=== PATIENT | male | born 1940 | race Caucasian/White ===

== ENCOUNTER 2017-04-03 11:16 | Inpatient (IN) ==
[~2017-04-03 11:16] MED LIST: Aminoglycoside Consult 1 EACH MC ONE
[2017-04-03 11:44] LABS: Hematocrit 23.2 % (37.5-50.1); Immature Platelets 5.5 % (1.1-6.1); Lymphocytes # 1.1 K/mcL (0.6-4.6); Mean Corpuscular HGB Conc 31.5 g/dL (31.6-35.5); Mean Corpuscular Hemoglobin 31.9 pg (28.0-33.3); Mean Corpuscular Volume 101.3 fL (83.0-100.0); Mean Platelet Volume 10.3 fL (9.4-12.4); Nucleated Red Blood Cells 1.1 /100 WBC (0); Platelet Count 313 K/mcL (140-400); Red Blood Count 2.29 M/mcL (4.19-5.50); Red Cell Distribution Width 12.8 % (11.5-14.5)
[2017-04-03 11:53] LABS: INR 1.4; Prothrombin Time 15.2 Seconds (9.4-12.1)
[2017-04-03 11:56] LABS: Activated Partial Thrombo Time 29.7 Seconds (26.0-36.0)
[2017-04-03 12:04] LABS: Bilirubin,Urine Negative (Negative); Blood,Urine Negative (Negative); Clarity,Urine Clear (Clear); Color,Urine Yellow (Yellow); Glucose,Urine (UA) Normal (Normal); Ketones,Urine Negative (Negative); Leukocyte Esterase,Urine Negative (Negative); Nitrite,Urine Negative (Negative); PH,Urine 7.5 pH Units (5.0-8.0); Protein,Urine Negative (Neg-Trace); Specific Gravity,Urine 1.006 (1.010-1.025); Urobilinogen,Urine Normal (Normal)
[2017-04-03 12:08] LABS: BUN/Creatinine Ratio 15 (6-26); Blood Urea Nitrogen 11 mg/dL (8-26); Calcium 8.3 mg/dL (8.6-10.8); Carbon Dioxide 26 mEq/L (19-29); Chloride 101 mEq/L (98-109); Glucose 108 mg/dL (70-99); Osmolality,Calculated 280 (280-300); Potassium 4.5 mEq/L (3.5-4.5); Sodium 135 mEq/L (136-145); eGFR For African Americans > 60 (> 60); eGFR For Non-African Americans > 60 (> 60)
[2017-04-03 12:16] LABS: Hemoglobin 7.3 g/dL (12.9-16.9)
[2017-04-03] MEDS ORDERED: Vancomycin 1,000 MG in D5% in Water 250 ML IVPB ONE (12:28)
[2017-04-03] MEDS ORDERED: Levofloxacin 750 MG/150 ML 750 MG/150 ML BAG IVPB ONE (12:28)
[2017-04-03] MEDS ORDERED: Piperacillin/Tazobactam 3.375 GM in D5% in Water (Mini-Bag+) 100 ML IVPB ONE (12:28)
--- NOTE | 2017-04-03 12:34 | Emergency Department Note ---
Disposition Clinical Impression: Lower GI bleed Pneumonia Qualifiers: Pneumonia type: due to unspecified organism Laterality: bilateral Lung location : unspecified part of lung Qualified Code(s): J18.9 - Pneumonia, unspecified organism Anemia Qualifiers: Anemia type: unspecified type Qualified Code(s): D64.9 - Anemia, unspecified Disposition: Admitted As Inpatient Condition: Good Referrals: Torres,Kel Lama MD [Primary Care Provider] - Forms: Work/School Release, ED Satisfaction Letter Time of Disposition: 15:51 General Adult HPI - General Chief complaint: ED General Medical Stated complaint: HGB 7 Time Seen by Provider: 04/03/17 11:20 Source: patient, EMS Limitations: no limitations Nursing Notes Reviewed: Yes Vital Signs Reviewed: Yes - History of Present Illness HPI Narrative: 76 year old male with recent hx of right knee surgery with Dr. Bynum last week. Chip states that he has been in the senior care since his discharge from the hospital for rehab purpose and they have been checking his labwork and found that he has a hgb of 7. Courtneynet state that he has been taking Fe supplements and experiencing black stool as well but not blood. Chip states that he also has chest pain with shortness of beath upon arrival he was 83% on RA and does not wear oxygen at home and currently on 2LNC and at 96%. Patient was also tachycardic in the room but is now in the 90s. Patient states that he also has had a productive cough that is not improving and that his left knee also feels swollen although it is improving from the since the surgery and he is able to now ambulate on it. Courtneyne denies any fever, chills, abdominal pain, nausea, vomitting, diarrhea, constpiatoin, or UTI symptoms. He denies a history of blood clots. Patient also has an abodminla anuerysm which Dr. Fishman most recently did a stent placement about 6 months ago and he staes that the anuserym isnt getting smaller in fact it is getting larger although it is stable and not leaking. Pain Scale: 1 - Related Data Allergies Allergy/AdvReac Type Severity Reaction Status Date / Time No Known Allergies Allergy Verified 04/03/17 11:26 Constitutional: Reports: weakness. Denies: fever, chills, weight change Eyes: Denies: eye pain, eye discharge, vision change ENT ED: Denies: ear pain, throat pain, dental pain, hearing loss, epistaxis, congestion, dysphagia Cardiovascular: Reports: palpitations, dyspnea on exertion. Denies: chest pain , edema, syncope Respiratory: Reports: cough. Denies: dyspnea, wheezes, hemoptysis, stridor Gastrointestinal: Denies: abdominal pain, nausea, vomiting, diarrhea, constipation, hematemesis, melena, hematochezia Genitourinary: Denies: urgency, dysuria, frequency, hematuria Musculoskeletal: Reports: joint swelling, other (knee pain). Denies: back pain , neck pain, arthralgia, myalgia Integumentary: Denies: rash, abrasion, lesions Neurological: Denies: headache, weakness, numbness, paresthesias, confusion, abnormal gait, vertigo Psychiatric: Denies: anxiety, depression, suicidal thoughts, homicidal thoughts , auditory hallucinations, visual hallucinations Endocrine: Denies: fatigue Hematological/Lymphatic: Denies: easy bleeding, easy bruising Allergic/Immunologic: Denies: facial swelling, urticaria Past Medical History - Past Medical History Medical history: Reports: atrial fibrillation, hypertension, myocardial infarction, thyroid disease Psychiatric history: Reports: no psych history - Social History Smoking Status: Never smoker Smokeless Tobacco Status: No Alcohol use: Reports: none Drug use: Reports: none Physical Exam - General Limitations: no limitations General appearance: alert, in no apparent distress - Head Head exam: atraumatic, normocephalic, normal inspection - Eye Eye exam: Present: normal appearance, PERRL, EOMI - Expanded Eye Exam Pupils: Left: reactive - ENT ENT exam: normal exam, normal oropharynx, mucous membranes moist - Expanded ENT Exam External ear exam: Present: normal external inspection Mouth exam: Present: normal external inspection Teeth exam: Present: normal inspection Throat exam: Present: normal inspection - Neck Neck exam: Present: normal inspection, full ROM, trachea midline - Chest Chest inspection: Present: normal inspection, symmetric chest wall rise - Respiratory Respiratory exam: Present: normal lung sounds bilaterally - Cardiovascular Cardiovascular exam: Present: regular rate, normal rhythm, normal heart sounds - Abdominal Exam Abdominal exam: Present: soft, Non-Tender, pulsatile mass (known abodominal anuerysm). Absent: tenderness, distention, guarding, rebound, rigidity - Rectal Exam Real Estate Analyst present during exam: Yes Rectal exam: Present: normal inspection, normal rectal tone, heme (+) stool, normal prostate. Absent: black stool, bloody stool, fecal impaction, hemorrhoids, mass, tenderness, prostate tenderness, prostate enlargement - Extremities Exam Extremities exam: Present: normal inspection, full ROM. Absent: tenderness, pedal edema - Expanded Upper Extremity Exam Shoulder exam: Present: normal inspection, full ROM Arm exam: Present: normal inspection, full ROM Elbow exam: Present: normal inspection, full ROM Forearm/Wrist exam: Present: normal inspection, full ROM Hand exam: Present: normal inspection, full ROM Vascular exam: Normal: capillary refill, radial pulse - Expanded Lower Extremity Exam Hip/Pelvis exam: Present: normal inspection, full ROM Upper leg exam: Present: normal inspection, full ROM 1 - asymmetery swelling to the left knee with increased warmth and ecchymosis without signs of drainage or flunctuance. Knee exam: Present: normal inspection, full ROM Lower leg exam: Present: normal inspection, full ROM Ankle exam: Present: normal inspection, full ROM Foot/toe exam: Present: normal inspection, full ROM Neurovascular/Tendon exam: Absent: motor deficit, sensory deficit, tendon deficit - Back Exam Back exam: Present: normal inspection, full ROM. Absent: tenderness - Neurological Exam Neurological exam: Present: alert, oriented X3 - Expanded Neurological Exam Patient oriented to: Present: person, place, time Coma Scale Eye Opening: Spontaneous Coma Scale Motor Response: Obeys Commands Coma Scale Verbal Response: Oriented Coma Scale Total: 15 - Psychiatric Psychiatric exam: Present: normal affect, normal mood - Skin Skin exam: Present: warm, dry, intact, normal color Course Course Narrative: we will do a full workup on patinet including PE/DVT r/o wit cardiac labs and EKG/CXR in addition to CT chest and abdomen to evlaute his abdominal aneuryms. Hgb is 7, we will tranfuse two unit and admit to medicine today. - Reevaluation(s) Reevaluation #1: DVT study (-) Time: 13:06 - Consultations Consultation #1: discussed case with Dr. Urias and she accepts patient for admission. Time: 15:50 Vital Signs Temperature 99.4 F 04/03/17 11:19 Pulse Rate 103 04/03/17 11:19 Respiratory Rate 22 04/03/17 11:19 Blood Pressure 146/78 04/03/17 11:19 O2 Sat by Pulse Oximetry 86 04/03/17 11:19 Temperature 98.3 F 04/03/17 14:47 Pulse Rate 100 04/03/17 15:37 Respiratory Rate 18 04/03/17 15:37 Blood Pressure 120/63 04/03/17 15:37 O2 Sat by Pulse Oximetry 93 04/03/17 15:37 Oxygen Delivery Oxygen Delivery Room Air Medical Decision Making - Lab Data Result diagrams: 04/03/17 11:34 04/03/17 11:34 Lab Results 04/03/17 04/03/17 04/03/17 Range/Units 11:34 11:34 11:34 WBC 11.0 (4.3-11.1) K/mcL RBC 2.29 L (4.19-5.50) M/mcL Hgb 7.3 L (12.9-16.9) g/dL Hct 23.2 L (37.5-50.1) % MCV 101.3 H (83.0-100.0) fL MCH 31.9 (28.0-33.3) pg MCHC 31.5 L (31.6-35.5) g/dL RDW 12.8 (11.5-14.5) % Plt Count 313 (140-400) K/mcL MPV 10.3 (9.4-12.4) fL Seg Neutrophils % 72.0 % Lymphocytes % 10.0 % Monocytes % 14.0 % Metamyelocytes % 4.0 H (0) % Neutrophils # 7.9 (1.6-8.9) K/mcL Lymphocytes # 1.1 (0.6-4.6) K/mcL Monocytes # 1.5 H (0.0-1.3) K/mcL Nucleated RBCs/100 WBC 1.1 H (0) /100 WBC Platelet Estimate Normal (Normal) Immature Plt Fraction 5.5 (1.1-6.1) % Polychromasia 1+ A (Not Present) Anisocytosis 1+ A (Not Present) PT 15.2 H (9.4-12.1) Seconds INR 1.4 APTT 29.7 (26.0-36.0) Seconds Sodium (136-145) mEq/L Potassium (3.5-4.5) mEq/L Chloride (98-109) mEq/L Carbon Dioxide (19-29) mEq/L BUN (8-26) mg/dL Creatinine (0.72-1.25) mg/dL Est GFR ( Amer) (> 60) Est GFR (Non-Af Amer) (> 60) BUN/Creatinine Ratio (6-26) Glucose (70-99) mg/dL Calculated Osmolality (280-300) Calcium (8.6-10.8) mg/dL Troponin I (0-0.03) ng/mL Urine Color (Yellow) Urine Clarity (Clear) Urine pH (5.0-8.0) pH Units Ur Specific [place] (1.010-1.025) Urine Protein (Neg-Trace) mg/dL Urine Glucose (UA) (Normal) mg/dL Urine Ketones (Negative) mg/dL Urine Blood (Negative) Urine Nitrite (Negative) Urine Bilirubin (Negative) Urine Urobilinogen (Normal) mg/dL Ur Leukocyte Esterase (Negative) Ur Culture Indicated? (NO) Stool Occult Blood (Negative) Blood Type O POSITIVE Antibody Screen NEGATIVE Crossmatch See Detail 04/03/17 04/03/17 04/03/17 Range/Units 11:34 11:34 11:51 WBC (4.3-11.1) K/mcL RBC (4.19-5.50) M/mcL Hgb (12.9-16.9) g/dL Hct (37.5-50.1) % MCV (83.0-100.0) fL MCH (28.0-33.3) pg MCHC (31.6-35.5) g/dL RDW (11.5-14.5) % Plt Count (140-400) K/mcL MPV (9.4-12.4) fL Seg Neutrophils % % Lymphocytes % % Monocytes % % Metamyelocytes % (0) % Neutrophils # (1.6-8.9) K/mcL Lymphocytes # (0.6-4.6) K/mcL Monocytes # (0.0-1.3) K/mcL Nucleated RBCs/100 WBC (0) /100 WBC Platelet Estimate (Normal) Immature Plt Fraction (1.1-6.1) % Polychromasia (Not Present) Anisocytosis (Not Present) PT (9.4-12.1) Seconds INR APTT (26.0-36.0) Seconds Sodium 135 L (136-145) mEq/L Potassium 4.5 (3.5-4.5) mEq/L Chloride 101 (98-109) mEq/L Carbon Dioxide 26 (19-29) mEq/L BUN 11 (8-26) mg/dL Creatinine 0.75 (0.72-1.25) mg/dL Est GFR ( Amer) > 60 (> 60) Est GFR (Non-Af Amer) > 60 (> 60) BUN/Creatinine Ratio 15 (6-26) Glucose 108 H (70-99) mg/dL Calculated Osmolality 280 (280-300) Calcium 8.3 L (8.6-10.8) mg/dL Troponin I 0.00 (0-0.03) ng/mL Urine Color Yellow (Yellow) Urine Clarity Clear (Clear) Urine pH 7.5 (5.0-8.0) pH Units Ur Specific [place] 1.006 L (1.010-1.025) Urine Protein Negative (Neg-Trace) mg/dL Urine Glucose (UA) Normal (Normal) mg/dL Urine Ketones Negative (Negative) mg/dL Urine Blood Negative (Negative) Urine Nitrite Negative (Negative) Urine Bilirubin Negative (Negative) Urine Urobilinogen Normal (Normal) mg/dL Ur Leukocyte Esterase Negative (Negative) Ur Culture Indicated? NO (NO) Stool Occult Blood (Negative) Blood Type Antibody Screen Crossmatch 04/03/17 Range/Units 14:02 WBC (4.3-11.1) K/mcL RBC (4.19-5.50) M/mcL Hgb (12.9-16.9) g/dL Hct (37.5-50.1) % MCV (83.0-100.0) fL MCH (28.0-33.3) pg MCHC (31.6-35.5) g/dL RDW (11.5-14.5) % Plt Count (140-400) K/mcL MPV (9.4-12.4) fL Seg Neutrophils % % Lymphocytes % % Monocytes % % Metamyelocytes % (0) % Neutrophils # (1.6-8.9) K/mcL Lymphocytes # (0.6-4.6) K/mcL Monocytes # (0.0-1.3) K/mcL Nucleated RBCs/100 WBC (0) /100 WBC Platelet Estimate (Normal) Immature Plt Fraction (1.1-6.1) % Polychromasia (Not Present) Anisocytosis (Not Present) PT (9.4-12.1) Seconds INR APTT (26.0-36.0) Seconds Sodium (136-145) mEq/L Potassium (3.5-4.5) mEq/L Chloride (98-109) mEq/L Carbon Dioxide (19-29) mEq/L BUN (8-26) mg/dL Creatinine (0.72-1.25) mg/dL Est GFR ( Amer) (> 60) Est GFR (Non-Af Amer) (> 60) BUN/Creatinine Ratio (6-26) Glucose (70-99) mg/dL Calculated Osmolality (280-300) Calcium (8.6-10.8) mg/dL Troponin I (0-0.03) ng/mL Urine Color (Yellow) Urine Clarity (Clear) Urine pH (5.0-8.0) pH Units Ur Specific [place] (1.010-1.025) Urine Protein (Neg-Trace) mg/dL Urine Glucose (UA) (Normal) mg/dL Urine Ketones (Negative) mg/dL Urine Blood (Negative) Urine Nitrite (Negative) Urine Bilirubin (Negative) Urine Urobilinogen (Normal) mg/dL Ur Leukocyte Esterase (Negative) Ur Culture Indicated? (NO) Stool Occult Blood Positive A (Negative) Blood Type Antibody Screen Crossmatch - EKG Data EKG #1 EKG attestation: Yes I reviewed and interpreted this EKG. EKG results narrative: NSR with rate of 95. NO STEMI. normal intervals. no old ekg. 1140
[2017-04-03 12:57] LABS: Anisocytosis 1+ (Not Present); Monocytes # 1.5 K/mcL (0.0-1.3); Neutrophils # 7.9 K/mcL (1.6-8.9); Platelet Estimate Normal (Normal); Polychromasia 1+ (Not Present)
[2017-04-03] MEDS ORDERED: 0.9 % Sodium Chloride 250 ML ONE ×2 (14:12→22:44)
[2017-04-03] MEDS: 0.9 % Sodium Chloride 1,000 ML IVC SCH ×3 (17:06→23:50)
[2017-04-03] MEDS ORDERED: Acetaminophen 325 MG TABLET PO PRN (18:16)
[2017-04-03] MEDS ORDERED: Ondansetron 4 MG/2 ML VIAL IVP PRN (18:16)
[2017-04-03] MEDS ORDERED: Naloxone 0.4 MG/ML INJ IVP PRN (18:16)
[2017-04-03] MEDS ORDERED: *HR* HYDROcodone/Acet 5/325 mg TABLET PO PRN (18:16)
[2017-04-03] MEDS ORDERED: *HR* Morphine 2 MG/ML SYRINGE IVP PRN (18:16)
--- NOTE | 2017-04-03 18:57 | Internal Med History&Physical ---
<BeronicaCarter ware - Last Filed: 04/03/17 21:59> Date of Encounter: 04/03/17 Time of Encounter: 17:30 Assessment and Plan (7) Pneumonia Current visit: Yes Status: Acute Patient presents with new onset of cough with sputum production, shortness of breath, and some chest discomfort. CTA of the chest today shows no pulmonary embolism. Bilateral, multifocal groundglass opacities predominantly involving the left upper lobe. Findings likely reflect multifocal pneumonia. No acute aortic abnormality status post stent graft repair of AAA. Residual aneurysm sac measures up to 7.4 cm and is not significantly changed since prior examination. Patient was given IV levaquin, Zosyn, and vancomycin in the ED. Will continue IV Zosyn at 3.375 gm Q8 and IV vancomycin with pharmacy dosing. DuoNebs ordered Q4 scheduled. Patient placed on continuous cardiac telemetry, supplemental O2 with titration if SPO2 less than 92%, and continuous SaO2 monitoring. Blood cultures were ordered 2. Sputum culture ordered. Legionella and strep pneumoniae antigens ordered. Patient does not currently meet SIRS criteria based on WBC of 11.0, temperature 98.3F, heart rate of 103, respiratory rate of 18, and BP of 120/63. Patient to be monitored closely for signs of further changes in H/H, bleeding, cardiac and/or respiratory distress, and increasing infection/SIRS criteria. Qualifiers: Pneumonia type: due to unspecified organism Laterality: bilateral Lung location: unspecified part of lung Qualified Code(s): J18.9 - Pneumonia, unspecified organism (8) Anemia Current visit: Yes Status: Acute Patient presents with acute anemia which was discovered today at the longterm he has been at for post-surgery rehabilitation. Labs at the SNF showed Hgb of 7.0. Patient instructed to come to the ED. Patient's Hgb was 7.3 and Hct was 23.2 at the ED. Patient had recent surgery one week ago on his right knee. Surgical site is erythematous and edematous but appears to be healing. Patient reports black stool but also that he is taking iron supplements. Fecal hemoccult today in the ED was positive. Patient was typed and screened and identified as O positive with negative antibody screen. Patient has been transfused with one unit of RBCs with another unit waiting. Will monitor H/H and follow-up labs. GI consult placed. Will monitor patient for signs of bleeding and/or changes in H/H. Qualifiers: Anemia type: unspecified type Qualified Code(s): D64.9 - Anemia, unspecified (9) Lower GI bleed Current visit: Yes Status: Acute Patient presents with suspected acute GI bleed based on current Hgb of 7.3 and Hct of 23.2 and report of black stool. Patient is currently taking iron supplements, however fecal hemoccult test today was positive. Patient was typed and screened and identified as O positive with negative antibody screen. Patient has been transfused with one unit of RBCs with another unit waiting. Will monitor H/H and follow-up labs. GI consult placed. Will monitor patient for signs of bleeding and/or changes in H/H. (10) Atrial fibrillation Current visit: Yes Status: Acute Patient presents with history of chronic atrial fibrillation and is currently anticoagulated with Eliquis. Patient to be placed on continuous cardiac telemetry and we will hold patient's Eliquis due to current dropping H/H and suspected GI bleed based on positive fecal hemoccult test. Qualifiers: Atrial fibrillation type: chronic Qualified Code(s): I48.2 - Chronic atrial fibrillation (11) HTN (hypertension) Current visit: Yes Status: Chronic Patient presents with history of chronic hypertension. Will monitor patient in vital signs and continue patient's lisinopril and Norvasc. Qualifiers: Hypertension type: essential hypertension Qualified Code(s): I10 - Essential (primary) hypertension (12) Thyroid disease Current visit: Yes Status: Chronic Patient presents with history of chronic thyroid disease. Will continue patient' s Synthroid. (13) DVT prophylaxis Current visit: Yes Status: Acute Patient to be placed on DVT prophylaxis due to current admission protocol and bed rest status. Pharmacologic DVT prophylaxis is contraindicated due to patient's suspected GI bleed and dropping H/H. Due to patient's recent right knee surgery, will placed SCD boot on right foot and SCD calf device on patient' s left leg. Internal Medicine - H&P: HPI Chief complaint: Anemia/Pneumonia Admitted From: Emergency Dept Plans for Post Hospital Care: Home History of present illness: Mr. Hernandez is a 76 year old male who presents from the ED with chief complaint of anemia. Patient was at longterm following right knee surgery last week with Dr. Bynum when the labs they cole showed his Hgb as 7. Patient's Hgb was 7.3 and Hct was 23.3 in ED. Patient has been taking iron supplements and reports black stool. Fecal hemoccult was positive in the ED. Patient reports recent cough with SOB/dyspnea. He denies use of home O2. He was also tachycardic on admission to ED with HR of 103. Patient denies any recent illness , fever, chills, nausea, vomiting, diarrhea, constipation, abdominal pain, dizziness, lightheadedness, presyncope, or presyncope. He also denies history of blood clots or PEs. Patient reports abdominal aneurysm which Dr. Howe placed the stent 6 months ago for an states that aneurysm is getting larger although is stable and not leaking. Patient reports no known allergies. Patient's medical history includes atrial fibrillation, hypertension, and thyroid disease. Patient denies any previous [place]. Patient is a former smoker smoking 1 pack per day, reporting he quit in . Single view CXR today shows left perihilar and right upper lobe infiltrates concerning for multifocal pneumonia. CTA of the chest today shows no pulmonary embolism. Bilateral, multifocal groundglass opacities predominantly involving the left upper lobe likely reflecting multifocal pneumonia. No acute aortic abnormality. Status post stent graft repair of AAA. Residual aneurysm sac measures up to 7.4 cm and is not significantly changed since the prior examination. Patient has been typed and screened and is O+ with negative antibody screen. I unit of RBCs has been transfused with 1 unit ready. Patient reports his last colonoscopy was in 2008. GI consult ordered due to dropping H/H. Patient does not currently meet SIRS criteria based on WBC of 11.0, temperature 98.3F, heart rate of 103, respiratory rate of 18, and BP of 120/63. Patient does have suspected pneumonia as confirmed by CTA today and IV Levaquin, Zosyn, and vancomycin were administered in the ED. We will continue IV Zosyn 3.375 gm every 8 and IV vancomycin with pharmacy dosing for infection coverage. Patient is at high risk for further morbidity based on current pneumonia, dropping H/H requiring transfusion, and risk factors and will be placed as inpatient with orders for continuous cardiac telemetry, supplemental O2 with SPO2 monitoring, blood cultures x2, sputum culture, transfusion of second unit of RBCs, follow-up monitoring of H/H, falls/safety precautions, GI consult, and clear liquid diet due to possible GI intervention. Patient to be monitored closely for signs of further changes in H/H, bleeding, cardiac and/or respiratory distress, and increasing infection/SIRS criteria. Time spent with patient and family >40 minutes. Past Med Surg Social Fam HX - Past Medical History Source: patient Medical history: atrial fibrillation, hypertension, myocardial infarction, thyroid disease Psychiatric history: no psych history - Past Surgical History Surgical History: orthopedic, other (Right knee surgery) - Social History Smoking Status: Former smoker Packs per day: 1 PPD - reports quitting in Smokeless Tobacco Status: No Alcohol use: none Drug use: none Occupational status: previously employed Current living situation: Home, With Family Activity Level: Uses cane/walker Recent Out of Country Travel Within the Last 8 Weeks: No Exposure or Possible Exposure to Illness During Travel: No - Family History Father Race: Family Member Ethnicity: Non- Living Status: Age at : 36 Cause of : Multiple myeloma Hx Family Cancer: Yes (Multiple myeloma) Mother Race: Family Member Ethnicity: Non- Living Status: Age at : 70 Cause of : Liver failure Hx Family Endocrine Disorder: Yes (Liver disease) Brother Race: Family Member Ethnicity: Non- Living Status: Age at : 65 Hx Family Cardiac Disorders: Yes (HD) Hx Family Endocrine Disorder: Yes (DM) Sister Race: Family Member Ethnicity: Non- Living Status: Still Living Hx Family Medical Disorders: No Internal Medicine - H&P: Meds Allopurinol [Zyloprim 300 MG] 300 mg PO QAM 11/17/15 [History] Aspirin [Adult Low Dose Aspirin EC] 81 mg PO QPM 11/17/15 [History] Garlic 1,000 mg PO QPM 11/17/15 [History] Levothyroxine [Synthroid] 75 mcg PO QAM 11/17/15 [History] Lisinopril [Zestril] 20 mg PO BID 11/17/15 [History] Loratadine [Claritin] 10 mg PO DAILY 11/17/15 [History] Multivitamin/Iron/Folic Acid [Centrum Complete Multivit Tab] 1 each PO QAM 11/16 [History] [place]-3/Dha/Epa/Fish Oil [Fish Oil Dr 500 mg Softgel] 1,000 mg PO QPM 11/17/15 [ History] Pravastatin Sodium [Pravachol] 40 mg PO QPM 11/17/15 [History] amLODIPine [Norvasc] 10 mg PO QAM 11/17/15 [History] Apixaban [Eliquis] 5 mg PO BID #30 tablet 11/18/15 [Rx] Diltiazem CD (24hr) [Cardizem CD] 120 mg PO Q24H #30 cap.er.24h 11/18/15 [Rx] Allopurinol [Zyloprim] 300 mg PO DAILY 04/03/17 [History] Amlodipine Besylate 10 mg PO DAILY 04/03/17 [History] Apixaban [Eliquis] 5 mg PO BID 04/03/17 [History] Levothyroxine [Synthroid] 75 mcg PO DAILY 04/03/17 [History] Lisinopril [Zestril] 20 mg PO BID 04/03/17 [History] dilTIAZem HCl [Diltiazem HCl] 120 mg PO DAILY 04/03/17 [History] 3 Allergy/AdvReac Type Severity Reaction Status Date / Time No Known Allergies Allergy Verified 11/17/15 09:38 All Systems PM: A 10-system review of systems was performed and is negative for pertinent findings except as documented above in the HPI. - Constitutional Constitutional: no chills, no fever(s), no night sweats - EENT Eyes: no change in vision, no discharge, no pain, no photophobia Ears: no ear discharge, no ear pain, no tinnitus Nose, mouth and throat: no dysphagia, no nasal discharge, no neck pain, no sore throat - Breasts Breasts: as per HPI - Cardiovascular Cardiovascular ROS IM: as per HPI, dyspnea, dyspnea on exertion, irregular heart rhythm - Respiratory Respiratory: as per HPI, cough, dyspnea, dyspnea on exertion, excessive phlegm production - Gastrointestinal Gastrointestinal: no abdominal pain, no diarrhea, no hematemesis, no hematochezia, no melena, no nausea, no vomiting - Genitourinary Genitourinary ROS male: as per HPI - Musculoskeletal Musculoskeletal ROS IM: no numbness, no tingling - Integumentary Integumentary IM: erythema (Of right knee related to recent surgery) - Neurological Neurological ROS: no confusion, no convulsions, no focal weakness, no numbness, no tingling, no tremor(s) - Psychiatric Psychiatric: as per HPI - Endocrine Endocrine IM: as per HPI - Hematologic/Lymphatic Hematologic/Lymphatic: no easy bruising - Allergic/Immunologic Allergic/Immunologic: as per HPI - Constitutional Vitals: Temp Pulse Resp BP Pulse Ox 98.2 F 92 16 144/70 97 04/03/17 17:02 04/03/17 18:24 04/03/17 18:24 04/03/17 18:24 04/03/17 18:24 General appearance: Present: cooperative, A&O X 3, pleasant, no acute distress, obese, answers questions appropriately - Head Head exam: Present: atraumatic, normocephalic - Eye Eye exam: Present: PERRL, conjuntiva pink, sclera anicteric Pupils: Present: PERRL - ENT ENT exam: Present: normal exam, normal external ear exam, normal oropharynx - Neck Neck exam general surgery: Present: normal inspection, supple, trachea midline. Absent: lymphadenopathy - Respiratory Respiratory exam: Present: CTAB. Absent: accessory muscle use, rales, rhonchi, wheezes - Cardiovascular Cardiovascular exam: Present: irregular rhythm - GI/Abdominal GI/Abdominal exam: Present: normal bowel sounds, soft, no peritoneal signs. Absent: distended, tenderness - Rectal Rectal exam: Present: deferred - Additional comments: exam deferred. - Extremities Exam Extremities exam: Present: pedal edema, warm, radial pulses palpable and symmetrical - Incison Incision: Present: swollen, intact, erythema - Back Exam Back exam: Present: normal inspection - Neurological Exam Neurological exam: Present: CN II-XII intact, oriented X3, no focal deficits. Absent: pronater drift, facial droop, speech deficit - Psychiatric Psychiatric exam: Present: normal affect, normal mood - Skin Skin exam: Present: dry, erythema (Right knee and LE), intact Internal Med - H&P Results - Labs CBC & Chem 7: 04/03/17 20:12 04/03/17 11:34 - EKG Data EKG shows normal: sinus rhythm - EKG Data Prior EKG available for review: no EKG comments: 04/03/17 19:27 EKG dated 04/03/17 shows sinus rhythm with borderline left axis deviation and minimal voltage criteria for LVH. Consider normal variant. Borderline ECG. - Diagnostic Studies Chest x-ray Additional comments: Impressions Chest X-Ray 04/03/17 11:48 IMPRESSION: Left perihilar and right upper lobe infiltrates concerning for multifocal pneumonia. Close plain film follow-up recommended to ensure resolution. D/ / Colby Montero MD / Colby Montero MD Interpreting Provider: Colby Montero MD Other Images Additional comments: Impressions Abdomen/Pelvis CTA 04/03/17 11:48 IMPRESSION: 1. No pulmonary embolism. 2. Bilateral, multifocal ground-glass opacities, predominantly involving the left upper lobe. Findings likely reflect multifocal pneumonia. 3. No acute aortic abnormality. Status post stent graft repair of AAA. Residual aneurysm sac measures up to 7.4 cm and is not significantly changed since the prior examination. D/ : / 04/03/2017 15:27:01 Eliane Aguirre MD / monet Interpreting Provider: Eliane Aguirre MD Chest CTA 04/03/17 11:48 IMPRESSION: 1. No pulmonary embolism. 2. Bilateral, multifocal ground-glass opacities, predominantly involving the left upper lobe. Findings likely reflect multifocal pneumonia. 3. No acute aortic abnormality. Status post stent graft repair of AAA. Residual aneurysm sac measures up to 7.4 cm and is not significantly changed since the prior examination. D/ / 04/03/2017 15:27:01 Eliane Aguirre MD / monet Interpreting Provider: Eliane Aguirre MD <Suzi Nguyen - Last Filed: 04/05/17 08:16> Date of Encounter: 04/03/17 Internal Medicine - H&P: HPI History of present illness: Mr. Hernandez is a 76 year old male All Systems PM: A 10-system review of systems was performed and is negative for pertinent findings except as documented above in the HPI. - Constitutional Vitals: Temp Pulse Resp BP Pulse Ox 98.0 F 82 16 131/58 93 04/05/17 06:56 04/05/17 06:56 04/05/17 07:48 04/05/17 06:56 04/05/17 07:48 Internal Med - H&P Results - Labs CBC & Chem 7: 04/05/17 04:06 04/05/17 04:06 Labs: Short CBC 04/04/17 04/04/17 04/04/17 Range/Units 09:08 14:30 21:13 WBC (4.3-11.1) K/mcL Hgb 9.0 L 8.9 L 8.7 L (12.9-16.9) g/dL Hct 27.7 L 27.4 L 27.3 L (37.5-50.1) % Plt Count (140-400) K/mcL Neutrophils # (1.6-8.9) K/mcL 04/05/17 Range/Units 04:06 WBC 10.6 (4.3-11.1) K/mcL Hgb 8.7 L (12.9-16.9) g/dL Hct 27.6 L (37.5-50.1) % Plt Count 351 (140-400) K/mcL Neutrophils # 7.8 (1.6-8.9) K/mcL BMP 04/05/17 04:06 Sodium 139 Potassium 4.2 Chloride 103 Carbon Dioxide 27 BUN 10 Creatinine 0.80 Glucose 120 H Calcium 8.8 Liver Function 04/05/17 Range/Units 04:06 Total Bilirubin 1.1 (0.2-1.2) mg/dL AST 28 (5-34) Units/L ALT 28 (0-55) Units/L Alkaline Phosphatase 63 (38-126) Units/L Albumin 3.1 L (3.5-5.0) g/dL - Attending Attestation Pt independently seen and examined at bedside. Admitted for PNA, anemia concerning for GI Bleed. Case discussed with KATELYNN Baxter, I agree with his documented findings , assessment, and plan.
[2017-04-03] MEDS ORDERED: Vancomycin 1,500 MG in D5% in Water 250 ML IVPB SCH (19:00)
[2017-04-03] MEDS: Lisinopril 20 MG TABLET PO SCH (20:33)
[2017-04-03 20:47] LABS: Hematocrit 25.7 % (37.5-50.1)
[2017-04-03] MEDS: Ipratropium/Albuterol Neb 3 ML IH SCH ×2 (21:16→23:45)
[2017-04-03] MEDS: dilTIAZem HCl 60 MG TABLET PO SCH (22:50)
[2017-04-04] MEDS: Piperacillin/Tazobactam 3.375 GM in D5% in Water (Mini-Bag+) 100 ML IVPB SCH ×3 (02:44→18:04)
[2017-04-04] MEDS: 0.9 % Sodium Chloride 1,000 ML IVC SCH (02:52)
[2017-04-04] MEDS: Ipratropium/Albuterol Neb 3 ML IH SCH ×6 (03:57→23:13)
[2017-04-04 03:59] LABS: Hematocrit 25.2 % (37.5-50.1); Hemoglobin 7.9 g/dL (12.9-16.9); Mean Corpuscular HGB Conc 31.3 g/dL (31.6-35.5); Mean Corpuscular Volume 98.8 fL (83.0-100.0); Mean Platelet Volume 10.6 fL (9.4-12.4); Nucleated Red Blood Cells 1.9 /100 WBC (0); Platelet Count 294 K/mcL (140-400); Red Blood Count 2.55 M/mcL (4.19-5.50); Red Cell Distribution Width 16.4 % (11.5-14.5)
[2017-04-04 04:05] LABS: INR 1.3
[2017-04-04 04:10] LABS: Activated Partial Thrombo Time 18.6 Seconds (26.0-36.0)
[2017-04-04 04:14] LABS: BUN/Creatinine Ratio 11 (6-26); Blood Urea Nitrogen 8 mg/dL (8-26); Calcium 8.5 mg/dL (8.6-10.8); Carbon Dioxide 24 mEq/L (19-29); Chloride 104 mEq/L (98-109); Chol/HDL Ratio 5.5 (0-4.9); Cholesterol 132 mg/dL (< 200); Glucose 126 mg/dL (70-99); HDL Cholesterol 24 mg/dL (40-59); LDL Cholesterol,Calculated 89 mg/dL (0-99); Magnesium 2.1 mg/dL (1.6-2.6); Osmolality,Calculated 282 (280-300); Potassium 4.4 mEq/L (3.5-4.5); Sodium 136 mEq/L (136-145); Triglycerides 97 mg/dL (< 150); eGFR For African Americans > 60 (> 60); eGFR For Non-African Americans > 60 (> 60)
[2017-04-04 04:44] LABS: Eosinophils # 0.2 K/mcL (0.0-0.6); Lymphocytes # 1.7 K/mcL (0.6-4.6); Monocytes # 1.5 K/mcL (0.0-1.3); Neutrophils # 5.9 K/mcL (1.6-8.9); Reactive Lymphocytes Present (Not Present)
[2017-04-04 04:45] LABS: Large Platelets Present (Not Present); Platelet Estimate Normal (Normal); Polychromasia 1+ (Not Present)
[2017-04-04] MEDS ORDERED: Vancomycin 1,250 MG in D5% in Water 250 ML IVPB SCH (05:00)
--- NOTE | 2017-04-04 06:23 | Electrocardiograph Report ---
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
[2017-04-04] MEDS: amLODIPine 5 MG TABLET PO SCH (08:51)
[2017-04-04] MEDS: Lisinopril 20 MG TABLET PO SCH ×2 (08:52→20:44)
[2017-04-04] MEDS: Pantoprazole 40 MG VIAL IVP SCH (08:52)
[2017-04-04 09:18] LABS: Hematocrit 27.7 % (37.5-50.1)
--- NOTE | 2017-04-04 11:13 | Gastroenterology Consult Note ---
<Tashi Whipple Rebecca - Last Filed: 04/04/17 11:06> Date of Encounter: 04/04/17 Time of Encounter: 10:30 - Assessment and plan (2) Anemia Current Visit: Yes Status: Acute Assessment and plan: Hgb 7.3 on admission and after 2 units PRBC, Hgb 7.9 this morning. Continue to monitor CBC and transfuse PRBC as needed. Plan for EGD today to r/o esophagitis , gastritis, duodenitis, PUD, MW tear, or AVM. Keep patient NPO. Qualifiers: Anemia type: unspecified type Qualified Code(s): D64.9 - Anemia, unspecified (4) Pneumonia Current Visit: Yes Status: Acute Assessment and plan: Management per primary team. Qualifiers: Pneumonia type: due to unspecified organism Laterality: bilateral Lung location: unspecified part of lung Qualified Code(s): J18.9 - Pneumonia, unspecified organism (5) Fecal occult blood test positive Current Visit: Yes Status: Acute - Time Spent With Patient Total time spent is greater than 50% in coordination of care (as documented) at patient's floor/unit and/or counseling patient: GI History of Present Illness - Data of Consult Patient: new to practice Consult date: 04/04/17 Requesting Physician: Ruthie Zambrano MD - Consult Narrative Reason for consult: GI Bleed History of present illness: Mr. Hernandez is a 76 year old male with PMHx of A. fib, HTN, AAA s/p repair, [place], right knee surgery last week who presented to the ED with anemia. Hgb at long-term was 7, and on admission Hgb 7.3 and FOBT was positive. He has been on iron supplements and reports black stool. He has received 2 units of PRBC and Hgb this AM 7.9. He denies fever, chills, abdominal pain, nausea, vomiting, diarrhea, or constipation. Chest CTA consistent with multifocal pneumonia and was started on IV antibiotics. Procedures: Colonoscopy 2008 with 2 polyps (per pt report) NSAIDs: None Anticoagulation: Eliquis Past Med Surg Social Fam HX - Past Medical History Medical history: atrial fibrillation, hypertension, myocardial infarction, thyroid disease Psychiatric history: no psych history - Past Surgical History Surgical History: orthopedic, other (Right knee surgery) - Social History Smoking Status: Former smoker Packs per day: 1 PPD - reports quitting in Smokeless Tobacco Status: No Alcohol use: none Drug use: none - Family History Father Race: Family Member Ethnicity: Non- Living Status: Age at : 36 Cause of : Multiple myeloma Hx Family Cancer: Yes (Multiple myeloma) Mother Race: Family Member Ethnicity: Non- Living Status: Age at : 70 Cause of : Liver failure Hx Family Endocrine Disorder: Yes (Liver disease) Brother Race: Family Member Ethnicity: Non- Living Status: Age at : 65 Hx Family Cardiac Disorders: Yes (HD) Hx Family Endocrine Disorder: Yes (DM) Sister Race: Family Member Ethnicity: Non- Living Status: Still Living Hx Family Medical Disorders: No - Gastrointestinal Gastrointestinal: Present: as per HPI - Constitutional Constitutional: as per HPI - EENT Eyes: as per HPI Ears: Present: as per HPI Nose, mouth and throat: Present: as per HPI - Cardiovascular Cardiovascular ROS: Present: as per HPI - Respiratory Respiratory IM: Present: as per HPI - Genitourinary Genitourinary: Absent: change in color, Urinary frequency - Neurological ROS Neurological GI: Present: as per HPI - Hematologic/Lymphatic Hematologic/Lymphatic pediatric: Present: as per HPI - Musculoskeletal Musculoskeletal ROS GI: Present: as per HPI - Integumentary Integumentary GI: Present: as per HPI - Psychiatric ROS Psychiatric GI: Present: as per HPI - Endocrine Endocrine IM: Present: as per HPI - Constitutional Vitals: Temp Pulse Resp BP Pulse Ox 98.1 F 102 14 132/64 99 04/04/17 10:57 04/04/17 10:57 04/04/17 10:57 04/04/17 10:57 04/04/17 10:57 General appearance: Present: cooperative, A&O X 3, no acute distress, answers questions appropriately - Head Head exam: Present: atraumatic, normocephalic - Eye Eye exam: Present: normal appearance, sclera anicteric - ENT ENT exam: Present: mucous membranes dry - Neck Neck exam general surgery: Present: normal inspection, trachea midline - Respiratory Respiratory exam: Present: decreased breath sounds, CTAB - Cardiovascular Cardiovascular exam: Present: RRR, +S1, +S2 - GI/Abdominal GI/Abdominal exam: Present: soft, no peritoneal signs. Absent: distended, firm , guarding, tenderness - Rectal Rectal exam: Present: deferred - Extremities Exam Extremities exam: Present: warm - Neurological Exam Neurological exam: Present: no focal deficits - Psychiatric Psychiatric exam: Present: normal affect, normal mood - Skin Skin exam: Present: dry, intact, normal color, warm Results - Labs CBC & Chem 7: 04/04/17 09:08 04/04/17 03:29 Labs: Last Result Calcium 8.5 mg/dL (8.6-10.8) L 04/04/17 03:29 Troponin I 0.00 ng/mL (0-0.03) 04/03/17 11:34 Triglycerides 97 mg/dL (< 150) 04/04/17 03:29 Stool Occult Blood Positive (Negative) A 04/03/17 14:02 Entire Visit Hgb 9.0 g/dL (12.9-16.9) L 04/04/17 09:08 Hct 27.7 % (37.5-50.1) L 04/04/17 09:08 PT 14.0 Seconds (9.4-12.1) H 04/04/17 03:29 - ABG ABG results: PT/INR, D-dimer PT 14.0 Seconds (9.4-12.1) H 04/04/17 03:29 Consult Discharge Plan - Plan Referrals: Kel Torres MD [Primary Care Provider] - <LeoncioshakiraFcoCandace - Last Filed: 04/04/17 18:08> Date of Encounter: 04/04/17 Time of Encounter: 17:30 - Time Spent With Patient Total time spent is greater than 50% in coordination of care (as documented) at patient's floor/unit and/or counseling patient: GI History of Present Illness - Data of Consult Requesting Physician: Ruthie Zambrano MD - Consult Narrative History of present illness: Mr. Hernandez is a 76 year old male - Constitutional Vitals: Temp Pulse Resp BP Pulse Ox 98.7 F 86 16 129/69 92 04/04/17 17:17 04/04/17 17:33 04/04/17 17:33 04/04/17 17:33 04/04/17 17:33 Results - Labs CBC & Chem 7: 04/04/17 14:30 04/04/17 03:29 Labs: Last Result Calcium 8.5 mg/dL (8.6-10.8) L 04/04/17 03:29 Troponin I 0.00 ng/mL (0-0.03) 04/03/17 11:34 Triglycerides 97 mg/dL (< 150) 04/04/17 03:29 Stool Occult Blood Positive (Negative) A 04/03/17 14:02 Entire Visit Hgb 8.9 g/dL (12.9-16.9) L 04/04/17 14:30 Hct 27.4 % (37.5-50.1) L 04/04/17 14:30 PT 14.0 Seconds (9.4-12.1) H 04/04/17 03:29 - ABG ABG results: PT/INR, D-dimer PT 14.0 Seconds (9.4-12.1) H 04/04/17 03:29 - Attending Attestation I examined this patient and my medical decision-making was reviewed with the Resident Physician. I agree with the documented findings, disposition and treatment plan as described except to the extent set forth below. Blood loss anemia most probably due to bleeding into the thigh post op. There is questionable history of black stool although on today's examination stools are brown recommendation is EGD and if negative then we will recommend colonoscopy in about 6-8 week as an outpatient after patient has recovered from his knee surgery
[2017-04-04 14:46] LABS: Hematocrit 27.4 % (37.5-50.1)
[2017-04-04 14:47] LABS: Hemoglobin 8.9 g/dL (12.9-16.9)
--- NOTE | 2017-04-04 16:33 | Internal Med Progress Note ---
Date of Encounter: 04/04/17 Time of Encounter: 16:31 - Assessment and plan (1) Pneumonia Current Visit: Yes Status: Acute Qualifiers: Pneumonia type: due to unspecified organism Laterality: bilateral Lung location: lower lobe of lung Qualified Code(s): J18.9 - Pneumonia, unspecified organism (2) Lower GI bleed Current Visit: Yes Status: Acute (3) Coronary artery disease Current Visit: Yes Status: Chronic Qualifiers: Coronary Disease-Associated Artery/Lesion type: [place] artery [place] vs. transplanted heart: [place] heart Associated angina: without angina Qualified Code(s): I25.10 - Atherosclerotic heart disease of [place] coronary artery without angina pectoris (4) Atrial fibrillation Current Visit: Yes Status: Acute Qualifiers: Atrial fibrillation type: chronic Qualified Code(s): I48.2 - Chronic atrial fibrillation (5) HTN (hypertension) Current Visit: Yes Status: Chronic Qualifiers: Hypertension type: essential hypertension Qualified Code(s): I10 - Essential (primary) hypertension (6) Thyroid disease Current Visit: Yes Status: Chronic - Subjective Interval history: Mr. Hernandez is a 76 year old male with PMHx of A. fib, HTN, AAA s/p repair, [place], right knee surgery last week who presented to the ED with anemia. Hgb at detention was 7, and on admission Hgb 7.3 and FOBT was positive. He has been on iron supplements and reports black stool. He has received 2 units of PRBC . Patient was also diagnosed on chest x-ray bilateral pneumonia for which antibiotics were started. He plans to have an EGD today he is on IV Protonix IV fluid and notified - Constitutional Vitals: Temp Pulse Resp BP Pulse Ox 98.0 F 92 14 148/62 97 04/04/17 15:49 04/04/17 15:49 04/04/17 15:49 04/04/17 15:49 04/04/17 15:49 General appearance: Present: cooperative, A&O X 3, pleasant, no acute distress, obese, answers questions appropriately - Head Head exam: Present: atraumatic, normocephalic - Eye Eye exam: Present: PERRL, conjuntiva pink, sclera anicteric Pupils: Present: PERRL - Neck Neck exam general surgery: Present: supple, trachea midline. Absent: lymphadenopathy - Respiratory Respiratory exam: Present: CTAB. Absent: accessory muscle use, rales, rhonchi, wheezes - Cardiovascular Cardiovascular exam: Present: RRR, +S1, +S2. Absent: diastolic murmur, gallop, rubs, systolic murmur - GI/Abdominal GI/Abdominal exam: Present: normal bowel sounds, soft, no peritoneal signs. Absent: distended, tenderness - Extremities Exam Extremities exam: Present: warm, radial pulses palpable and symmetrical. Absent : calf tenderness, cyanotic, pedal edema - Neurological Exam Neurological exam: Present: CN II-XII intact, oriented X3, no focal deficits. Absent: pronater drift, facial droop, speech deficit - Skin Skin exam: Present: dry, intact Internal Medicine: Result - Labs CBC & Chem 7: 04/04/17 14:30 04/04/17 03:29 Labs: Short CBC 04/03/17 04/04/17 04/04/17 Range/Units 20:12 03:29 09:08 WBC 9.2 (4.3-11.1) K/mcL Hgb 8.0 L 7.9 L 9.0 L (12.9-16.9) g/dL Hct 25.7 L 25.2 L 27.7 L (37.5-50.1) % Plt Count 294 (140-400) K/mcL Neutrophils # 5.9 (1.6-8.9) K/mcL 04/04/17 Range/Units 14:30 WBC (4.3-11.1) K/mcL Hgb 8.9 L (12.9-16.9) g/dL Hct 27.4 L (37.5-50.1) % Plt Count (140-400) K/mcL Neutrophils # (1.6-8.9) K/mcL BMP 04/04/17 03:29 Sodium 136 Potassium 4.4 Chloride 104 Carbon Dioxide 24 BUN 8 Creatinine 0.76 Glucose 126 H Calcium 8.5 L - ABG Interpretation ABG results: PT/INR, D-dimer PT 14.0 Seconds (9.4-12.1) H 04/04/17 03:29 - VTE Documentation of Mechanical Device: Venous foot pump, device Consult Discharge Plan - Plan Referrals: Kel Torres MD [Primary Care Provider] -
[2017-04-04] MEDS ORDERED: *HR* Midazolam HCl 5 MG/5 ML VIAL IVP ONE (17:06)
[2017-04-04] MEDS ORDERED: *HR* FentaNYL (PF) 100 MCG/2 ML VIAL ONE (17:07)
[2017-04-04] MEDS ORDERED: Tetracaine/Benzocaine/Butamben 200MG/SPRAY (100SPY/BOT) MM ONE (17:20)
[2017-04-04] MEDS ORDERED: Simethicone 40 MG/0.6 ML MLS IR ONE (17:20)
[2017-04-04] MEDS: *HR* FentaNYL (PF) 100 MCG/2 ML VIAL IVP PRN ×2 (17:28→17:30)
[2017-04-04] MEDS: *HR* Midazolam HCl 5 MG/5 ML VIAL IVP PRN ×2 (17:28→17:30)
[2017-04-04] MEDS ORDERED: 0.9 % Sodium Chloride 500 ML IVC SCH (17:30)
[2017-04-04] MEDS: dilTIAZem HCl 60 MG TABLET PO SCH (20:44)
[2017-04-04 21:26] LABS: Hematocrit 27.3 % (37.5-50.1); Hemoglobin 8.7 g/dL (12.9-16.9)
[2017-04-05] MEDS: Piperacillin/Tazobactam 3.375 GM in D5% in Water (Mini-Bag+) 100 ML IVPB SCH ×2 (00:42→09:49)
[2017-04-05] MEDS: Ipratropium/Albuterol Neb 3 ML IH SCH ×4 (04:24→15:53)
[2017-04-05 05:14] LABS: Hematocrit 27.6 % (37.5-50.1); Hemoglobin 8.7 g/dL (12.9-16.9); Mean Corpuscular HGB Conc 31.5 g/dL (31.6-35.5); Mean Corpuscular Hemoglobin 30.7 pg (28.0-33.3); Mean Corpuscular Volume 97.5 fL (83.0-100.0); Mean Platelet Volume 10.3 fL (9.4-12.4); Nucleated Red Blood Cells 0.6 /100 WBC (0); Platelet Count 351 K/mcL (140-400); Red Blood Count 2.83 M/mcL (4.19-5.50); Red Cell Distribution Width 16.3 % (11.5-14.5)
[2017-04-05 05:27] LABS: Alanine Aminotransferase 28 Units/L (0-55); Albumin 3.1 g/dL (3.5-5.0); Albumin/Globulin Ratio 0.9 (1.1-2.2); Alkaline Phosphatase 63 Units/L (38-126); Aspartate Amino Transferase 28 Units/L (5-34); BUN/Creatinine Ratio 13 (6-26); Blood Urea Nitrogen 10 mg/dL (8-26); Calcium 8.8 mg/dL (8.6-10.8); Carbon Dioxide 27 mEq/L (19-29); Chloride 103 mEq/L (98-109); Globulin 3.3 g/dL (2.4-3.5); Glucose 120 mg/dL (70-99); Osmolality,Calculated 288 (280-300); Potassium 4.2 mEq/L (3.5-4.5); Sodium 139 mEq/L (136-145); Total Protein 6.4 g/dL (6.0-8.3); eGFR For African Americans > 60 (> 60); eGFR For Non-African Americans > 60 (> 60)
[2017-04-05 06:25] LABS: Eosinophils # 0.2 K/mcL (0.0-0.6); Lymphocytes # 0.9 K/mcL (0.6-4.6); Macrocytosis Present (Not Present); Monocytes # 1.7 K/mcL (0.0-1.3); Neutrophils # 7.8 K/mcL (1.6-8.9); Platelet Estimate Normal (Normal); Polychromasia 1+ (Not Present)
[2017-04-05 06:26] LABS: Anisocytosis 1+ (Not Present); Microcytosis Present (Not Present)
[2017-04-05 06:31] LABS: Bilirubin,Total 1.1 mg/dL (0.2-1.2)
[2017-04-05] MEDS: Lisinopril 20 MG TABLET PO SCH (09:48)
[2017-04-05] MEDS: amLODIPine 5 MG TABLET PO SCH (09:48)
[2017-04-05] MEDS: Pantoprazole 40 MG VIAL IVP SCH (09:48)
[2017-04-05 10:01] LABS: Hematocrit 27.4 % (37.5-50.1); Hemoglobin 8.6 g/dL (12.9-16.9)
[2017-04-05 11:16] VITALS: BP 136/53
--- NOTE | 2017-04-05 14:25 | Discharge Summary ---
Date of Encounter: 04/05/17 Time of Encounter: 14:22 - Discharge Diagnosis (1) Lower GI bleed Priority: Primary Status: Acute (2) Pneumonia Priority: Primary Status: Acute Qualifiers: Pneumonia type: due to unspecified organism Laterality: bilateral Lung location: lower lobe of lung Qualified Code(s): J18.9 - Pneumonia, unspecified organism (3) Coronary artery disease Priority: Secondary Status: Chronic Qualifiers: Coronary Disease-Associated Artery/Lesion type: [place] artery [place] vs. transplanted heart: [place] heart Associated angina: without angina Qualified Code(s): I25.10 - Atherosclerotic heart disease of [place] coronary artery without angina pectoris (4) Atrial fibrillation Priority: Secondary Status: Acute Qualifiers: Atrial fibrillation type: chronic Qualified Code(s): I48.2 - Chronic atrial fibrillation (5) HTN (hypertension) Priority: Secondary Status: Chronic Qualifiers: Hypertension type: essential hypertension Qualified Code(s): I10 - Essential (primary) hypertension (6) Thyroid disease Priority: Secondary Status: Chronic - Discharge Medications Prescriptions: Amoxicillin/Clavulanate [Augmentin] 875 mg PO BIDWM #20 tablet Clopidogrel [Plavix] 75 mg PO DAILY #30 tablet Omeprazole [PriLOSEC] 40 mg PO DAILY #30 cap Home Medications: Allopurinol [Zyloprim 300 MG] 300 mg PO QAM 11/17/15 [History] Garlic 1,000 mg PO QPM 11/17/15 [History] Levothyroxine [Synthroid] 75 mcg PO QAM 11/17/15 [History] Lisinopril [Zestril] 20 mg PO BID 11/17/15 [History] Loratadine [Claritin] 10 mg PO DAILY 11/17/15 [History] Multivitamin/Iron/Folic Acid [Centrum Complete Multivit Tab] 1 each PO QAM 11/16 [History] [place]-3/Dha/Epa/Fish Oil [Fish Oil Dr 500 mg Softgel] 1,000 mg PO QPM 11/17/15 [ History] Pravastatin Sodium [Pravachol] 40 mg PO QPM 11/17/15 [History] amLODIPine [Norvasc] 10 mg PO QAM 11/17/15 [History] Diltiazem CD (24hr) [Cardizem CD] 120 mg PO Q24H #30 cap.er.24h 11/18/15 [Rx] Allopurinol [Zyloprim] 300 mg PO DAILY 04/03/17 [History] Amlodipine Besylate 10 mg PO DAILY 04/03/17 [History] Levothyroxine [Synthroid] 75 mcg PO DAILY 04/03/17 [History] Lisinopril [Zestril] 20 mg PO BID 04/03/17 [History] dilTIAZem HCl [Diltiazem HCl] 120 mg PO DAILY 04/03/17 [History] Amoxicillin/Clavulanate [Augmentin] 875 mg PO BIDWM #20 tablet 04/05/17 [Rx] Clopidogrel [Plavix] 75 mg PO DAILY #30 tablet 04/05/17 [Rx] Ipratropium/Albuterol Neb [Duoneb] 3 ml IH BID #60 inh 04/05/17 [Rx] Omeprazole [PriLOSEC] 40 mg PO DAILY #30 cap 04/05/17 [Rx] Allergies/Adverse Reactions: 3 Allergy/AdvReac Type Severity Reaction Status Date / Time No Known Allergies Allergy Verified 11/17/15 09:38 Date of admission: 04/03/17 18:16 Primary care physician: Kel Torres MD Consults: 04/03/17 18:41 Consult to Gastroenterology [CONS] Routine Consulting Provider: Judi Khan Reason for Consult: lower GI bleed Call Completed: No 04/04/17 14:24 Consult to Cadmium Plater [CONS] Routine Reason for SW Consult: Return to [facility] to continue rehab Discharging clinician: Ruthie Zambrano Anticipated date of discharge: 04/05/17 - Patient Status Disposition: Transfer SNF Condition: Good Overall status at discharge: patient is progressing back to baseline - Discharge Instructions Follow Up With: Kel Torres MD [Primary Care Provider] - - Diet and Activity Activity: resume usual activities as tolerated Diet: advance to your usual diet Hospital course: Mr. Hernandez is a 76 year old male with PMHx of A. fib, HTN, AAA s/p repair, [place], right knee surgery last week who presented to the ED with anemia. He is on Eliquis at [place]. Hgb at retirement was 7, and on admission Hgb 7.3 and FOBT was positive. He has been on iron supplements and reports black stool. He has received 2 units of PRBC . Patient was also diagnosed on chest x-ray bilateral pneumonia for which antibiotics were started. GI was consulted and he had an EGD showing gastritis and duodenitis. Biopsies were taken. No active bleed noted. He has been tolerating full diet. He will be discharged with Plavix for his heart. Anticoagulation is on hold and he will see tool and die machinist in office for follow-up for his biopsy as well as discussion about when to restart anticoagulation. - Time Spent with Patient Total time spent providing and/or coordinating discharge services: Greater than 30 minutes - Constitutional Vitals: Temp Pulse Resp BP Pulse Ox 98.0 F 85 14 136/53 93 04/05/17 11:15 04/05/17 11:15 04/05/17 11:15 04/05/17 11:15 04/05/17 11:15 General appearance: Present: cooperative, A&O X 3, pleasant, no acute distress, obese, answers questions appropriately - Head Head exam: Present: atraumatic, normocephalic - Eye Eye exam: Present: PERRL, conjuntiva pink, sclera anicteric Pupils: Present: PERRL - Neck Neck exam general surgery: Present: supple, trachea midline. Absent: lymphadenopathy - Respiratory Respiratory exam: Present: CTAB. Absent: accessory muscle use, rales, rhonchi, wheezes - Cardiovascular Cardiovascular exam: Present: RRR, +S1, +S2. Absent: diastolic murmur, gallop, rubs, systolic murmur - GI/Abdominal GI/Abdominal exam: Present: normal bowel sounds, soft, no peritoneal signs. Absent: distended, tenderness - Extremities Exam Extremities exam: Present: warm, radial pulses palpable and symmetrical. Absent : calf tenderness, cyanotic, pedal edema - Neurological Exam Neurological exam: Present: CN II-XII intact, oriented X3, no focal deficits. Absent: pronater drift, facial droop, speech deficit - Skin Skin exam: Present: dry, intact - VTE Documentation of Mechanical Device: Venous foot pump, device
--- NOTE | 2017-04-05 14:36 | Physician Discharge Referral ---
ExtendedCare Referral Info Transfer To: SNF Provider in Charge: Juan Manuel Provider in Charge after Transfer: PCP Institutional Level of Care: Skilled - Diagnosis (1) Lower GI bleed Status: Acute (2) Pneumonia Status: Acute (3) Coronary artery disease Status: Chronic (4) Atrial fibrillation Status: Acute (5) HTN (hypertension) Status: Chronic (6) Thyroid disease Status: Chronic - Transfer Medications Prescriptions: Amoxicillin/Clavulanate [Augmentin] 875 mg PO BIDWM #20 tablet Clopidogrel [Plavix] 75 mg PO DAILY #30 tablet Omeprazole [PriLOSEC] 40 mg PO DAILY #30 cap Home Medications: Allopurinol [Zyloprim 300 MG] 300 mg PO QAM 11/17/15 [History] Garlic 1,000 mg PO QPM 11/17/15 [History] Levothyroxine [Synthroid] 75 mcg PO QAM 11/17/15 [History] Lisinopril [Zestril] 20 mg PO BID 11/17/15 [History] Loratadine [Claritin] 10 mg PO DAILY 11/17/15 [History] Multivitamin/Iron/Folic Acid [Centrum Complete Multivit Tab] 1 each PO QAM 11/16 [History] [place]-3/Dha/Epa/Fish Oil [Fish Oil Dr 500 mg Softgel] 1,000 mg PO QPM 11/17/15 [ History] Pravastatin Sodium [Pravachol] 40 mg PO QPM 11/17/15 [History] amLODIPine [Norvasc] 10 mg PO QAM 11/17/15 [History] Diltiazem CD (24hr) [Cardizem CD] 120 mg PO Q24H #30 cap.er.24h 11/18/15 [Rx] Allopurinol [Zyloprim] 300 mg PO DAILY 04/03/17 [History] Amlodipine Besylate 10 mg PO DAILY 04/03/17 [History] Levothyroxine [Synthroid] 75 mcg PO DAILY 04/03/17 [History] Lisinopril [Zestril] 20 mg PO BID 04/03/17 [History] dilTIAZem HCl [Diltiazem HCl] 120 mg PO DAILY 04/03/17 [History] Amoxicillin/Clavulanate [Augmentin] 875 mg PO BIDWM #20 tablet 04/05/17 [Rx] Clopidogrel [Plavix] 75 mg PO DAILY #30 tablet 04/05/17 [Rx] Ipratropium/Albuterol Neb [Duoneb] 3 ml IH BID #60 inh 04/05/17 [Rx] Omeprazole [PriLOSEC] 40 mg PO DAILY #30 cap 04/05/17 [Rx] Allergies/Adverse Reactions: 3 Allergy/AdvReac Type Severity Reaction Status Date / Time No Known Allergies Allergy Verified 11/17/15 09:38 - Respiratory Orders Smoking Cessation: Smoking cessation has been advised. For more information, call the [place] Tobacco Quit Line at 9-104-AIIE-NOW. - History and Physical History/Physical reviewed & approved w/add comments: see GI/Cardiology as OP in 2wk to see if Eliquis can be restarted - Rehabiliation Orders Rehab Orders: ROM Exercises, Evaluation for Physical Therapy, Evaluation for Occupational Therapy CERTIFICATION: I certify that the transfer of the above named patient to an Extended Care Facility is necessary for the continuing treatment of the diagnosis listed. The above information is true and accurate reflection of patient's current condition. Confidential - Redisclosure prohibited without a patient's written consent.
--- NOTE | 2017-04-05 18:08 | Venous Imaging Report ---
LE Venous Duplex Patient Name:Arnold Hernandez Order Number:[id number] Procedure Date:04/03/2017 Date:1940ge:76 yrs Gender:Male Location:[facility] ED Room #: ER 7 Director Food Safety:Abbie Fairbanks RDCS, RVT Referring MD:Elmira Baeza DO assistant professor of surgery:Kel Torres MD Reading MD:Kel Bonilla MD Primary Indications:Swelling Secondary Indications: Risk Factors Yes/No Anticoagulants No Hx of DVT No Recent Surgery Yes Hx of Chemotherapy No Impressions: Right lower extremity: normal superficial and deep exam. Recommendations: Test completed on 04/03/2017 at 1:00:43 pm. Critical findings reported to Kristopher by phone at 1:05:52 pm on 04/03/2017 by Abbie Fairbanks RDCS, RVT. Findings Venous Duplex Results: Right: Venous imaging of the lower extremity reveals full patency and normal vessel compressibility of the right distal iliac, right common femoral, right superficial femoral, right popliteal, right posterior tibial, right peroneal, right great saphenous and right lesser saphenous. Doppler signals in the evaluated veins were normal. Left: Venous imaging of the lower extremity reveals full patency and normal vessel compressibility of the left common femoral. Doppler signals in the evaluated veins were normal. Prior Study: No prior study available for comparison. Lower Extremity Venous Duplex Side Vein Compress Spontaneous Flow Augment Diameter (cm) Depth (cm) Right Distal Iliac Normal Yes Phasic Yes Right Common Femoral Normal Yes Phasic Yes Right Superficial Femoral Normal Yes Phasic Yes Right Popliteal Normal Yes Phasic Yes Right Posterior Tibial Normal Yes Phasic Yes Right Peroneal Normal Yes Phasic Yes Right Great Saphenous Normal Yes Phasic Yes Right Lesser Saphenous Normal Yes Phasic Yes Left Common Femoral Normal Yes Phasic Yes Updated by Kel Bonilla MD on 04/05/2017 6:00:30 PM electronically signed on 04/05/2017 6:00:42 PM with status of Final
== END 2017-04-05 16:30 | DRG 377 ==
LOC: EMEROO 11:16 → 2NENU 11:16 → MERGE 18:16 → 2NENU 19:42
PROVIDERS: ADMIT Internal Medicine; ATTEND Internal Medicine
PROC: ENDOEBX (2017-04-04 15:00)

== ENCOUNTER 2018-10-27 08:30 | Inpatient (IN) ==
--- NOTE | 2018-10-27 08:38 | Emergency Department Note ---
Disposition Clinical Impression: Generalized weakness Disposition: Still a Patient General Adult HPI - General Stated complaint: weakness Time Seen by Provider: 10/27/18 08:34 Nursing Notes Reviewed: Yes Vital Signs Reviewed: Yes - History of Present Illness HPI Narrative: ED attending attestation note: I examined this patient and my medical decision-making was reviewed with the emergency medicine resident Dru Warren. I agree with the documented findings, disposition and treatment plan as described except to the extent set forth below. Briefly: 77-year-old male history of hypertension and atrial fibrillation on Plavix lying EMS for weakness. EMS reported that they thought this was some facial asymmetry however we did NIH's scoring immediately upon arrival which was 0 had no visual field disturbances no neuromuscular or motor or cerebellar ataxia findings as far as we can test. Patient said he felt weak and fell backwards without a loss of consciousness for just felt weak. Patient denies fevers chills or sputum. He has bibasilar adventitious breath sounds more consistent with rales. Patient will get chest x-ray EKG screening labs head CT. Admission anticipated. Disposition pending - Related Data Home Medications Medication Instructions Recorded Confirmed Garlic 1,000 mg PO QPM 11/17/15 06/25/17 Multivitamin/Iron/Folic Acid 1 each PO QAM 11/17/15 06/25/17 [Centrum Complete Multivit Tab] [place]-3/Dha/Epa/Fish Oil [Fish Oil 1,000 mg PO QPM 11/17/15 06/25/17 Dr 500 mg Softgel] amLODIPine [Norvasc] 10 mg PO QAM 11/17/15 06/25/17 Allopurinol [Zyloprim] 300 mg PO DAILY 04/03/17 06/25/17 Levothyroxine [Synthroid] 75 mcg PO 0630 04/03/17 06/25/17 Lisinopril [Zestril] 20 mg PO BID 04/03/17 06/25/17 Ranitidine HCl [Acid Ict Development Manager] 150 mg PO DAILY 06/25/17 06/25/17 dilTIAZem HCl [Diltiazem HCl] 120 mg PO DAILY 06/25/17 06/25/17 Previous Rx's Medication Instructions Recorded Clopidogrel [Plavix] 75 mg PO DAILY #30 tablet 04/05/17 Ipratropium/Albuterol Neb [Duoneb] 3 ml IH BID #60 inh 04/05/17 Allergies Allergy/AdvReac Type Severity Reaction Status Date / Time No Known Allergies Allergy Verified 06/25/17 08:01 Past Medical History - Past Medical History Medical history: Reports: GERD, myocardial infarction, atrial fibrillation, hyperlipidemia, hypertension, peripheral artery disease, thyroid disease Surgical history: Reports: orthopedic, other, vascular surgery, other Psychiatric history: Reports: no psych history - Social History Smoking Status: Unknown if ever smoked Smokeless Tobacco Status: No Alcohol use: Reports: none Drug use: Reports: none
--- NOTE | 2018-10-27 08:38 | Emergency Department Note ---
Disposition Clinical Impression: Generalized weakness, Slurred speech, Dehydration, Hyponatremia Disposition: Admitted As Inpatient Condition: Fair Time of Disposition: 10:39 Weakness HPI - General Stated complaint: weakness Time Seen by Provider: 10/27/18 08:34 Source: patient, EMS Mode of arrival: EMS Limitations: no limitations Nursing Notes Reviewed: Yes Vital Signs Reviewed: Yes - History of Present Illness HPI Narrative: Patient presents to the ED with the chief complaint of dizziness. Patient reports he went to get out of his chair today and felt very weak and almost passed out. He did have a fall back into his chair, but did not have any associated injury. He denies any headache or changes in vision. Does state that he feels short of breath. Denies any chest pain at this time. Does have a history of A. fib and is on Plavix, but he is not anticoagulated. Denies any abdominal pain. Some nausea but no vomiting or diarrhea. No rashes. No pain or swelling in his legs. - Related Data Home Medications Medication Instructions Recorded Confirmed Garlic 1,000 mg PO QPM 11/17/15 06/25/17 Multivitamin/Iron/Folic Acid 1 each PO QAM 11/17/15 06/25/17 [Centrum Complete Multivit Tab] [place]-3/Dha/Epa/Fish Oil [Fish Oil 1,000 mg PO QPM 11/17/15 06/25/17 Dr 500 mg Softgel] amLODIPine [Norvasc] 10 mg PO QAM 11/17/15 06/25/17 Allopurinol [Zyloprim] 300 mg PO DAILY 04/03/17 06/25/17 Levothyroxine [Synthroid] 75 mcg PO 0630 04/03/17 06/25/17 Lisinopril [Zestril] 20 mg PO BID 04/03/17 06/25/17 Ranitidine HCl [Acid News Operations Manager] 150 mg PO DAILY 06/25/17 06/25/17 dilTIAZem HCl [Diltiazem HCl] 120 mg PO DAILY 06/25/17 06/25/17 Previous Rx's Medication Instructions Recorded Clopidogrel [Plavix] 75 mg PO DAILY #30 tablet 04/05/17 Ipratropium/Albuterol Neb [Duoneb] 3 ml IH BID #60 inh 04/05/17 Allergies Allergy/AdvReac Type Severity Reaction Status Date / Time No Known Allergies Allergy Verified 06/25/17 08:01 Review of Systems: As reviewed in the HPI. All other systems reviewed are negative or normal. Past Medical History - Past Medical History Attestation: Yes The following information was validated with the patient. Source: patient Medical history: Reports: GERD, myocardial infarction, atrial fibrillation, hyperlipidemia, hypertension, peripheral artery disease, thyroid disease Surgical history: Reports: orthopedic, other, vascular surgery, other Psychiatric history: Reports: no psych history - Social History Smoking Status: Unknown if ever smoked Smokeless Tobacco Status: No Alcohol use: Reports: none Drug use: Reports: none Physical Exam CONSTITUTIONAL: [well appearing, alert and in no acute distress] EYES: [EOMI, clear conjunctiva, PERRLA] HENT: [Normocephalic, atraumatic, moist mucus membranes, normal oropharynx] NECK: [normal inspection, full ROM, trachea midline, no obvious swelling] PULMONARY: [coarse breath sounds b/l CARDIOVASCULAR: [regular rate, regular rhythm, normal heart sounds, no murmurs, distal extremities are warm and well perfused] GASTROINSTESTINAL: [soft, non-tender, non-rigid, non-distended, no guarding, no rebound, normal bowel sounds] GENITOURINARY/RECTAL: [deferred] NEUROLOGIC: [Alert, oriented x3, normal speech, moves all extremities,NIH 0] EXTREMITIES: [Normal inspection, full ROM, no tenderness, 1+ pedal edema, normal capillary refill] MUSCULOSKELETAL: [no gross deformities, atraumatic] SKIN: [No cyanosis, no diaphoresis, normal color, warm, no rash] PSYCHIATRIC: [anxious] Course Course Narrative: Patient presenting with weakness. NIH is 0. We will get labs workup and likely admit. He is febrile, which would explain his tachycardia. We will evaluate for infectious sources 8:55nursing staff came to alert us patient was having some slurred speech. States that he feels like he cannot get some of his words out. He is able to identify my watch and a pen. Speech does seem very mildly slurred, giving him an NIH of 1. Getting him down to CT at this time. - Reevaluation(s) Reevaluation #1: Patient's workup shows some dehydration and mild hyponatremia. We will admit for TIA workup. Patient accepted by the hospitalist service Vital Signs Temperature 101.4 F H 10/27/18 08:32 Pulse Rate 108 10/27/18 08:32 Respiratory Rate 22 10/27/18 08:32 Blood Pressure 134/85 10/27/18 08:32 O2 Sat by Pulse Oximetry 92 10/27/18 08:32 Temperature 101.4 F H 10/27/18 08:32 Pulse Rate 108 10/27/18 08:32 Respiratory Rate 22 10/27/18 08:32 Blood Pressure 134/85 10/27/18 08:32 O2 Sat by Pulse Oximetry 93 10/27/18 08:42 Oxygen Delivery Oxygen Delivery Nasal Cannula Weakness - Medical Records Medical records reviewed: Yes I reviewed the patient's medical records. - Lab Data Lab results reviewed: Yes I reviewed the patient's lab results. Result diagrams: 10/27/18 09:33 10/27/18 09:33 Lab Results 10/27/18 10/27/18 10/27/18 Range/Units 08:33 09:00 09:32 WBC (4.3-11.1) K/mcL RBC (4.19-5.50) M/mcL Hgb (12.9-16.9) g/dL Hct (37.5-50.1) % MCV (83.0-100.0) fL MCH (28.0-33.3) pg MCHC (31.6-35.5) g/dL RDW (11.5-14.5) % Plt Count (140-400) K/mcL MPV (9.4-12.4) fL Seg Neutrophils % % Band Neutrophils % (0-4) % Lymphocytes % % Monocytes % % Metamyelocytes % (0) % Neutrophils # (1.6-8.9) K/mcL Lymphocytes # (0.6-4.6) K/mcL Monocytes # (0.0-1.3) K/mcL Reactive Lymphocytes (Not Present) Toxic Vacuolation (Not Present) Platelet Estimate (Normal) Large Platelets (Not Present) Sodium (136-145) mEq/L Potassium (3.5-5.1) mEq/L Chloride (98-107) mEq/L Carbon Dioxide (23-29) mEq/L BUN (8-23) mg/dL Creatinine (0.70-1.30) mg/dL Est GFR ( Amer) (> 60) Est GFR (Non-Af Amer) (> 60) BUN/Creatinine Ratio (6-26) Glucose (70-105) mg/dL POC Glucose 156 H (70-99) mg/dL Calculated Osmolality (280-300) Lactic Acid 2.5 H (0.5-2.2) mmol/L Calcium (8.6-10.3) mg/dL Venous Ioniz Calcium (1.15-1.35) mmol/L Troponin I (< 0.04) ng/mL TSH (0.340-5.600) mcIU/mL Urine Color Yellow (Yellow) Urine Clarity Clear (Clear) Urine pH 6.0 (5.0-8.0) pH Units Ur Specific [place] 1.023 (1.010-1.025) Urine Protein 100 H (Neg-Trace) mg/dL Urine Glucose (UA) Normal (Normal) mg/dL Urine Ketones Trace H (Negative) mg/dL Urine Blood Moderate H (Negative) Urine Nitrite Negative (Negative) Urine Bilirubin Negative (Negative) Urine Urobilinogen Normal (Normal) mg/dL Ur Leukocyte Esterase Negative (Negative) Urine Microscopic RBC 15-30 H (0-3) per hpf Urine Microscopic WBC 0-3 (0-3) per hpf Ur Squamous Epith Cells Many H (None-Few) per lpf Urine Bacteria None Seen (None-Few) per hpf Hyaline Casts Few (None-Few) per lpf Ur Culture Indicated? NO (NO) 10/27/18 10/27/18 10/27/18 Range/Units 09:33 09:33 09:48 WBC 8.9 (4.3-11.1) K/mcL RBC 4.03 L (4.19-5.50) M/mcL Hgb 13.2 (12.9-16.9) g/dL Hct 39.2 (37.5-50.1) % MCV 97.3 (83.0-100.0) fL MCH 32.8 (28.0-33.3) pg MCHC 33.7 (31.6-35.5) g/dL RDW 13.2 (11.5-14.5) % Plt Count 95 L (140-400) K/mcL MPV 11.8 (9.4-12.4) fL Seg Neutrophils % 45.0 % Band Neutrophils % 22.0 H (0-4) % Lymphocytes % 12.0 % Monocytes % 20.0 % Metamyelocytes % 1.0 H (0) % Neutrophils # 6.0 (1.6-8.9) K/mcL Lymphocytes # 1.1 (0.6-4.6) K/mcL Monocytes # 1.8 H (0.0-1.3) K/mcL Reactive Lymphocytes Present A (Not Present) Toxic Vacuolation Present A (Not Present) Platelet Estimate Slight Decrease L (Normal) Large Platelets Present A (Not Present) Sodium 130 L (136-145) mEq/L Potassium 3.6 (3.5-5.1) mEq/L Chloride 97 L (98-107) mEq/L Carbon Dioxide 21 L (23-29) mEq/L BUN 20 (8-23) mg/dL Creatinine 1.42 H (0.70-1.30) mg/dL Est GFR ( Amer) 59 L (> 60) Est GFR (Non-Af Amer) 49 L (> 60) BUN/Creatinine Ratio 14 (6-26) Glucose 130 H (70-105) mg/dL POC Glucose (70-99) mg/dL Calculated Osmolality 274 L (280-300) Lactic Acid (0.5-2.2) mmol/L Calcium 8.2 L (8.6-10.3) mg/dL Venous Ioniz Calcium 0.99 L (1.15-1.35) mmol/L Troponin I 0.03 (< 0.04) ng/mL TSH 1.218 (0.340-5.600) mcIU/mL Urine Color (Yellow) Urine Clarity (Clear) Urine pH (5.0-8.0) pH Units Ur Specific [place] (1.010-1.025) Urine Protein (Neg-Trace) mg/dL Urine Glucose (UA) (Normal) mg/dL Urine Ketones (Negative) mg/dL Urine Blood (Negative) Urine Nitrite (Negative) Urine Bilirubin (Negative) Urine Urobilinogen (Normal) mg/dL Ur Leukocyte Esterase (Negative) Urine Microscopic RBC (0-3) per hpf Urine Microscopic WBC (0-3) per hpf Ur Squamous Epith Cells (None-Few) per lpf Urine Bacteria (None-Few) per hpf Hyaline Casts (None-Few) per lpf Ur Culture Indicated? (NO) - Radiology Data Radiology results reviewed: Yes I reviewed the patient's radiology results. - EKG Data EKG attestation: Yes I reviewed and interpreted this EKG. EKG results narrative: Sinus tach, rate 107, indeterminate axis. Due to isoelectric aVF, no acute ischemic change NIH Stroke Scale - Level of Consciousness LOC: Alert - LOC Questions LOC Questions: Answers both correctly - LOC Commands LOC Commands: Performs both correctly - Best Gaze Best Gaze: Normal - Visual Visual: No visual loss - Facial Palsy Facial Palsy: Normal - Motor Arms Motor Arm-Left: No drift for 10 seconds Motor Arm-Right: No drift for 10 seconds - Motor Legs Motor Leg-Left: No drift for 5 seconds Motor Leg-Right: No drift for 5 seconds - Limb Ataxia Limb Ataxia: Normal, No Ataxia - Sensory Sensory: Normal - Best Language Best Language: No aphasia - Dysarthria Dysarthria: Mild, slurs some words - Extinction and Inattention Extinction and Inattention: Normal - NIHSS Total Score NIHSS Total Score: 1
[2018-10-27] MEDS ORDERED: 0.9 % Sodium Chloride 500 ML IVC ONE (08:39)
[2018-10-27 09:09] LABS: Bilirubin,Urine Negative (Negative); Blood,Urine Moderate (Negative); Clarity,Urine Clear (Clear); Color,Urine Yellow (Yellow); Glucose,Urine (UA) Normal (Normal); Ketones,Urine Trace mg/dL (Negative); Leukocyte Esterase,Urine Negative (Negative); Nitrite,Urine Negative (Negative); Protein,Urine 100 mg/dL (Neg-Trace); Specific Gravity,Urine 1.023 (1.010-1.025); Urobilinogen,Urine Normal (Normal)
[2018-10-27 09:12] LABS: Bacteria,Urine None Seen per hpf (None-Few); Hyaline Casts,Urine Few per lpf (None-Few); RBC,Urine 15-30 per hpf (0-3); Squamous Epithelial Cell,Urine Many per lpf (None-Few); WBC,Urine 0-3 per hpf (0-3)
[2018-10-27] MEDS ORDERED: Aspirin 81 MG TAB.CHEW PO ONE (09:36)
[2018-10-27 09:46] LABS: Hematocrit 39.2 % (37.5-50.1); Hemoglobin 13.2 g/dL (12.9-16.9); Mean Corpuscular HGB Conc 33.7 g/dL (31.6-35.5); Mean Corpuscular Hemoglobin 32.8 pg (28.0-33.3); Mean Corpuscular Volume 97.3 fL (83.0-100.0); Mean Platelet Volume 11.8 fL (9.4-12.4); Red Blood Count 4.03 M/mcL (4.19-5.50); Red Cell Distribution Width 13.2 % (11.5-14.5)
[2018-10-27 09:51] LABS: VBG Ionized Calcium 0.99 mmol/L (1.15-1.35)
[2018-10-27 10:04] LABS: Platelet Count 95 K/mcL (140-400)
[2018-10-27 10:07] LABS: Calcium 8.2 mg/dL (8.6-10.3); Potassium 3.6 mEq/L (3.5-5.1)
[2018-10-27 10:08] LABS: Troponin I 0.03 ng/mL (< 0.04)
[2018-10-27 10:09] LABS: Lymphocytes # 1.1 K/mcL (0.6-4.6); Monocytes # 1.8 K/mcL (0.0-1.3)
[2018-10-27 10:10] LABS: Large Platelets Present (Not Present); Platelet Estimate Slight Decrease (Normal); Reactive Lymphocytes Present (Not Present); Toxic Vacuolation Present (Not Present)
[2018-10-27 10:21] LABS: Thyroid Stimulating Hormone 1.218 mcIU/mL (0.340-5.600)
[2018-10-27] MEDS ORDERED: 0.9 % Sodium Chloride 1,000 ML IVC ONE (10:37)
[2018-10-27] MEDS ORDERED: Naloxone 0.4 MG/ML INJ IVP PRN (11:30)
--- NOTE | 2018-10-27 12:10 | Internal Med History&Physical ---
Date of Encounter: 10/27/18 Time of Encounter: 11:00 Internal Medicine - H&P: HPI Chief complaint: Generalized weakness Admitted From: Home Plans for Post Hospital Care: Home History of present illness: Mr. Hernandez is a 77 year old male presented to ER for generalized weakness. Past medical history is significant for hypertension, A. fib, hypothyroidism, ROLY on CPAP, aortic aneurysm S/P stent. Patient was sick for about one week, has cough with chest congestion. Patient has white sputum. He has runny nose and sneezing. Since yesterday, he is getting worse. Pt has low fever. Patient has nausea and vomited twice. The vomiting are stomach content no blood in it. This morning patient feel whole- body weak, dizziness, cannot getup by himself. Patient also reports slurred speech. Patient denies one-sided weakness, facial drop, or one-sided numbness tingling. Patient has decreased that oxygen saturation, which he need [place] oxygen during transportation. In the emergency room, patient was treated with hydrat ion, patient feels much better after receiving the IV fluid. Patient was admitted for further management. Past Med Surg Social Fam HX - Past Medical History Medical history: GERD, myocardial infarction, atrial fibrillation, hyperlip idemia, hypertension, peripheral artery disease, thyroid disease Additional medical history: gout Psychiatric history: no psych history - Past Surgical History Surgical History: orthopedic, other, vascular surgery, other Additional surgical history: AAA, left ear surgery,RTK, EGD 2017 - Social History Smoking Status: Unknown if ever smoked Smokeless Tobacco Status: No Alcohol use: none Drug use: none - Family History Father Family Member Ethnicity: Non- Living Status: Hx Family Cancer: Yes (Multiple myeloma) Mother Family Member Ethnicity: Non- Living Status: Hx Family Endocrine Disorder: Yes (Liver disease) Brother Family Member Ethnicity: Non- Living Status: Hx Family Cardiac Disorders: Yes (HD) Hx Family Endocrine Disorder: Yes (DM) Sister Family Member Ethnicity: Non- Living Status: Still Living Internal Medicine - H&P: Meds Garlic 1,000 mg PO QPM 11/17/15 [History] Multivitamin/Iron/Folic Acid [Centrum Complete Multivit Tab] 1 each PO QAM 11/17/15 [History] [place]-3/Dha/Epa/Fish Oil [Fish Oil Dr 500 mg Softgel] 1,000 mg PO QPM 11/17/15 [History] amLODIPine [Norvasc] 10 mg PO QAM 11/17/15 [History] Allopurinol [Zyloprim] 300 mg PO DAILY 04/03/17 [History] Levothyroxine [Synthroid] 75 mcg PO 0630 04/03/17 [History] Lisinopril [Zestril] 20 mg PO BID 04/03/17 [History] Clopidogrel [Plavix] 75 mg PO DAILY #30 tablet 04/05/17 [Rx] Ipratropium/Albuterol Neb [Duoneb] 3 ml IH BID #60 inh 04/05/17 [Rx] Ranitidine HCl [Acid Core Setter] 150 mg PO DAILY 06/25/17 [History] dilTIAZem HCl [Diltiazem HCl] 120 mg PO DAILY 06/25/17 [History] Allergy/AdvReac Type Severity Reaction Status Date / Time No Known Allergies Allergy Verified 06/25/17 08:01 All Systems PM: A 10-system review of systems was performed and is negative for pertinent findings except as documented above in the HPI. - Constitutional Vitals: Temp Pulse Resp BP Pulse Ox 98.9 F 108 16 93/73 93 10/27/18 10:47 10/27/18 08:32 10/27/18 10:47 10/27/18 10:47 10/27/18 10:47 Exam: Pt is AAO x 3, in NAD HEENT: [place]/AT, PERRL Neck: Supple, no JVD, no LAD Lungs: Coarse breath sound bilaterally, scattered rhonchi mainly on left side. Heart: S1S2, RRR Abd: Soft, nontender, BS present Ext: ROM wnl, no pedal edema Neuro: No focal deficit Internal Med - H&P Results - Labs CBC & Chem 7: 10/27/18 09:33 10/27/18 09:33 Labs: Short CBC 10/27/18 Range/Units 09:33 WBC 8.9 (4.3-11.1) K/mcL Hgb 13.2 (12.9-16.9) g/dL Hct 39.2 (37.5-50.1) % Plt Count 95 L (140-400) K/mcL Neutrophils # 6.0 (1.6-8.9) K/mcL BMP 10/27/18 09:33 Sodium 130 L Potassium 3.6 Chloride 97 L Carbon Dioxide 21 L BUN 20 Creatinine 1.42 H Glucose 130 H Calcium 8.2 L Cardiac Enzymes 10/27/18 Range/Units 09:33 Troponin I 0.03 (< 0.04) ng/mL Urine 10/27/18 Range/Units 09:00 Urine Color Yellow (Yellow) Urine Clarity Clear (Clear) Urine pH 6.0 (5.0-8.0) pH Units Ur Specific [place] 1.023 (1.010-1.025) Urine Protein 100 H (Neg-Trace) mg/dL Urine Glucose (UA) Normal (Normal) mg/dL - Impressions ITS Impressions Chest X-Ray 10/27/18 08:34 IMPRESSION: Low lung volumes and mild bibasilar atelectasis. D/ / Eliane Aguirre MD / Eliane Aguirre MD Interpreting Provider: Eliane Aguirre MD Head CT 10/27/18 08:34 IMPRESSION: No acute intracranial abnormality. D/ / Cal Chavez MD / Cal Chavez MD Interpreting Provider: Cal Chavez MD - Assessment and Plan (1) Dehydration Current Visit: Yes Status: Acute Assessment and plan: Patient has nausea vomiting, poor intake. Patient has signs of dehydration with BRENDA. - Continue hydrate patient with IV fluid - Follow up her renal function (2) Hyponatremia Current Visit: Yes Status: Acute Assessment and plan: Sodium 130. Consider hypovolemic hyponatremia. Continue normal saline. Fo llow-up sodium level (3) Slurred speech Current Visit: Yes Status: Acute Assessment and plan: Most likely due to acute illness. Less likely TIA/CVA. Slurred speech completely resolved after hydration. - We will check MRI, CT head negative - Continue cardiac monitoring - NIHSS protocol - Echo and duplex carotid - Continue home medication Plavix (4) Weakness generalized Current Visit: Yes Status: Acute Assessment and plan: Possibly due to acute illness. Continue supportive treatment. (5) Atrial fibrillation Current Visit: No Status: Acute Assessment and plan: Heart rate is well controlled. Patient is on sinus rhythm at this point. Continue home medications for heart rate control. Patient is on Plavix. Not on anticoagulation at home possibly due to history of GI bleed. Qualifiers: Atrial fibrillation type: chronic Qualified Code(s): I48.2 - Chronic atrial fibrillation (6) DVT prophylaxis Current Visit: No Status: Acute Assessment and plan: EPCDs (7) Dyspnea Current Visit: No Status: Acute Assessment and plan: Patient has cough, white sputum, fever, bandemia, mild elevated lactate acid level. - Chest x-ray did not show any infiltrate - We will check respiratory viral panel - We will check Legionella and Strep Pneumo Ags - We will empirically treat patient with azithromycin and Rocephin to cover early community acquired pneumonia. - Continue IV fluid, repeat lactate acid in 6 hours Qualifiers: Dyspnea type: shortness of breath Qualified Code(s): R06.02 - Shortness of breath; R06.00 - Dyspnea, unspecified; R06.01 - Orthopnea (8) HTN (hypertension) Current Visit: No Status: Chronic Assessment and plan: Continue home medications after verification Qualifiers: Hypertension type: essential hypertension Qualified Code(s): I10 - Essential (primary) hypertension (9) Thyroid disease Current Visit: No Status: Chronic Assessment and plan: Continue home medication Synthroid - Time Spent With Patient Total time spent is greater than 50% in coordination of care (as documented) at patient's floor/unit and/or counseling patient: 40 minutes Greater than 35 minutes
[2018-10-27] MEDS: 0.9 % Sodium Chloride 1,000 ML IVC SCH (14:30)
[2018-10-27] MEDS: cefTRIAXone 1,000 MG in Water for inj. (sterile) 20 ML 10 ML IVP SCH (14:31)
[2018-10-27] MEDS: Azithromycin 500 MG in D5% in Water 250 ML IVPB SCH (14:31)
[2018-10-27] MEDS: Diltiazem CD (24hr) 120 MG CAPSULE PO SCH (14:32)
[2018-10-27 16:45] LABS: Adenovirus Not Detected (Not Detect); Coronavirus 229E Not Detected (Not Detect); Coronavirus HKU1 Not Detected (Not Detect); Coronavirus NL63 Not Detected (Not Detect); Coronavirus OC43 Not Detected (Not Detect); Human Metapneumovirus Not Detected (Not Detect); Human Rhinovirus/Enterovirus Not Detected (Not Detect); Influenza A Subtype 2009 H1 Not Detected (Not Detect); Influenza A Untypeable Not Detected (Not Detect); Influenza B Not Detected (Not Detect); Parainfluenza Virus 1 Not Detected (Not Detect); Parainfluenza Virus 2 Not Detected (Not Detect); Parainfluenza Virus 3 Not Detected (Not Detect); Parainfluenza Virus 4 Not Detected (Not Detect)
[2018-10-27 16:46] LABS: Bordetella Pertussis Not Detected (Not Detect); Chlamydophila pneumoniae Not Detected (Not Detect); Mycoplasma pneumoniae Not Detected (Not Detect); Respiratory Syncytial Virus Not Detected (Not Detect)
[2018-10-27] MEDS: Acetaminophen 325 MG TABLET PO PRN (16:49)
[2018-10-27] MEDS ORDERED: Oseltamivir Phosphate 30 MG CAPSULE PO ONE (16:52)
[2018-10-27] MEDS ORDERED: Perflutren Lipid Microsphere 1.3 ML in 0.9 % Sodium Chloride 8.7 ML IVP ONE (18:44)
[2018-10-27] MEDS ORDERED: Perflutren Lipid Microsphere 2 ML VIAL ONE (18:48)
[2018-10-27] MEDS: Ipratropium/Albuterol Neb 3 ML IH SCH (20:21)
[2018-10-28 04:26] LABS: Mean Corpuscular Hemoglobin 31.8 pg (28.0-33.3)
[2018-10-28 04:28] LABS: Basophils % 0.1 %; Eosinophils % 0.1 %; Hematocrit 37.8 % (37.5-50.1); Hemoglobin 12.4 g/dL (12.9-16.9); Immature Granulocytes % 1.6 % (0-4); Immature Platelets 12.1 % (1.1-6.1); Lymphocytes # 0.9 K/mcL (0.6-4.6); Lymphocytes % 4.5 %; Mean Corpuscular HGB Conc 32.8 g/dL (31.6-35.5); Mean Corpuscular Volume 96.9 fL (83.0-100.0); Mean Platelet Volume 12.3 fL (9.4-12.4); Monocytes # 1.7 K/mcL (0.0-1.3); Monocytes % 8.8 %; Neutrophils # 16.6 K/mcL (1.6-8.9); Red Cell Distribution Width 13.4 % (11.5-14.5); Segmented Neutrophils % 84.9 %
[2018-10-28 04:35] LABS: BUN/Creatinine Ratio 19 (6-26); Blood Urea Nitrogen 22 mg/dL (8-23); Calcium 8.1 mg/dL (8.6-10.3); Carbon Dioxide 23 mEq/L (23-29); Chloride 98 mEq/L (98-107); Glucose 121 mg/dL (70-105); Magnesium 1.7 mg/dL (1.6-2.6); Osmolality,Calculated 275 (280-300); Potassium 3.6 mEq/L (3.5-5.1); Sodium 130 mEq/L (136-145); eGFR For Non-African Americans > 60 (> 60)
[2018-10-28 04:42] LABS: Platelet Count 88 K/mcL (140-400)
[2018-10-28 04:43] LABS: Platelet Estimate Decreased (Normal)
[2018-10-28] MEDS: Oseltamivir Phosphate 30 MG CAPSULE PO SCH ×2 (06:57→21:46)
[2018-10-28 07:27] LABS: Adenovirus F 40/41 PCR Not detected (Not detect); Astrovirus PCR Not detected (Not detect); C.difficile Toxin A/B Gene PCR Not detected (Not detect); Campylobacter by PCR Not detected (Not detect); Cryptosporidium by PCR Not detected (Not detect); Cyclospora cayetanensis PCR Not detected (Not detect); E. coli O157 by PCR Not detected (Not detect); Entamoeba histolytica PCR Not detected (Not detect); Enteroaggregative E.coli(EAEC) Not detected (Not detect); Enteropathogenic E.coli(EPEC) Not detected (Not detect); Enterotoxigenic E.coli (ETEC) Not detected (Not detect); Giardia lamblia PCR Not detected (Not detect); Norovirus GI/GII PCR Not detected (Not detect); Plesiomonas shigelloides PCR Not detected (Not detect); Rotavirus A PCR Not detected (Not detect); Salmonella PCR Not detected (Not detect); Sapovirus PCR Not detected (Not detect); Shig/EnteroinvasiveE coli EIEC Not detected (Not detect); Shigalike tox-prod E coli STEC Not detected (Not detect); Vibrio PCR Not detected (Not detect); Vibrio cholerae PCR Not detected (Not detect); Yersinia enterocolitica PCR Not detected (Not detect)
[2018-10-28] MEDS: 0.9 % Sodium Chloride 1,000 ML IVC SCH (07:35)
[2018-10-28] MEDS: cefTRIAXone 1,000 MG in Water for inj. (sterile) 20 ML 10 ML IVP SCH (08:21)
[2018-10-28] MEDS: Diltiazem CD (24hr) 120 MG CAPSULE PO SCH (08:22)
[2018-10-28] MEDS: *HR* Heparin 5,000 UNIT/ML VIAL SQ SCH ×2 (09:52→21:46)
[2018-10-28] MEDS: Ipratropium/Albuterol Neb 3 ML IH SCH ×2 (09:55→22:33)
[2018-10-28] MEDS: Azithromycin 500 MG in D5% in Water 250 ML IVPB SCH (11:42)
--- NOTE | 2018-10-28 15:01 | Internal Med Progress Note ---
Hospitalist Progress Note - Encounter Date of Encounter: 10/28/18 Time of Encounter: 08:30 - Subjective Interval History: Mr. Hernandez is a 77 year old male with past medical history is significant for hypertension, A. fib, hypothyroidism, ROLY on CPAP, aortic aneurysm S/P stent. presented to ER for with one week h/o progressively worsening SOB, Cough with greenish expectoration and chest congestion. He felt his whole-body weak, dizziness, cannot getup by himself. Patient also reports slurred speech. Patient denies one-sided weakness, facial drop, or one-sided numbness tingling. 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 Denied any CP. Still has moderate to severe SOB and LYLES. Cough with greenish / yellowish expectoration. - Exam Vitals: Temp Pulse Resp BP Pulse Ox 99.0 F 83 19 118/65 90 10/28/18 12:36 10/28/18 12:36 10/28/18 12:36 10/28/18 12:36 10/28/18 12:36 Exam: Gen: Alert, awake, Oriented to time,place and person Chest: Diminished breath sounds B/L, Moderate to severe wheezing, No crackles, No rales Heart: S1S2+ Tachycardia, No murmurs Abd: Soft, NT, BS +, No organomegaly Ext: No edema, pulses are palpable, No calf tenderness Neuro : Benign findings Skin: No rash. - Assessment and Plan (1) Acute respiratory failure with hypoxia Current Visit: Yes Status: Acute Assessment and Plan: Currently on 5 lit O2 He does not use O2 at home His CXR did not show any infiltrates Reviewed resp viral panel - positive for influenza A cont Tamiflu will f.u on sputum cx since pt still have wheezing started on low dose systemic steroids continue scheduled bronchodilator therapy Try to wean him off off the oxygen as he tolerates Patient does need to stay in the hospital more than 2 midnights due to his complex medical problems. So we will change him to full admission today. I did review my colleague Dr. Cabrales's H & P including HPI, PMH, PSH, FH, SH, and ROS no changes noticed (2) COPD with exacerbation Current Visit: Yes Status: Acute Assessment and Plan: as above (3) Acute bronchitis Current Visit: Yes Status: Acute Assessment and Plan: Influenza A positive bronchitis also concenirng for supra infection with bacteria on empirical abx Rocephin + Azithromycin (4) Slurred speech Current Visit: Yes Status: Acute Assessment and Plan: Most likely due to acute illness Less likely TIA/CVA. Slurred speech completely resolved after hydration. MRI of Head is negative for ischenia No further work up needed (5) Weakness generalized Current Visit: Yes Status: Acute Assessment and Plan: Possibly due to acute illness. Continue supportive treatment. (6) Atrial fibrillation Current Visit: No Status: Acute Assessment and Plan: HR fairly controlled due to resp failure Continue home medications Coreg and Cardizem for heart rate control. Patient is on Plavix. Not on anticoagulation at home possibly due to history of GI bleed. (7) HTN (hypertension) Current Visit: No Status: Chronic Assessment and Plan: stable BP resumed all home meds (8) Thyroid disease Current Visit: No Status: Chronic Assessment and Plan: Continue home medication Synthroid (9) DVT prophylaxis Current Visit: No Status: Acute Assessment and Plan: EPCDs (10) Dehydration Current Visit: Yes Status: Acute Assessment and Plan: resolved (11) Hyponatremia Current Visit: Yes Status: Acute Assessment and Plan: due to dehydration - Time Spent with Patient Total time spent is greater than 50% in coordination of care (as documented) at patient's floor/unit and/or counseling patient: Internal Medicine: Result - Labs CBC & Chem 7: 10/28/18 04:00 10/28/18 04:00 Labs: Short CBC 10/28/18 Range/Units 04:00 WBC 19.6 H D (4.3-11.1) K/mcL Hgb 12.4 L (12.9-16.9) g/dL Hct 37.8 (37.5-50.1) % Plt Count 88 L (140-400) K/mcL Neutrophils # 16.6 H (1.6-8.9) K/mcL BMP 10/28/18 04:00 Sodium 130 L Potassium 3.6 Chloride 98 Carbon Dioxide 23 BUN 22 Creatinine 1.13 Glucose 121 H Calcium 8.1 L - Impressions Impressions Echocardiogram 10/27/18 11:33 Impressions: LVEF 45-50%. Moderate concentric left ventricular hypertrophy. Mild left ventricular diastolic dysfunction. Normal right ventricular structure and function. No evidence of PFO with agitated saline contrast. No evidence of pulmonary hypertension. Left Ventricular Wall Motion: Rest Echo Findings The apex, apical inferior, mid inferior, basal inferior, apical anterior, mid anterior, basal anterior, apical septal, mid inferior septal, basal inferior septal, apical lateral, mid anterior lateral, basal anterior lateral, mid anterior septal, mid inferior lateral, basal anterior septal and basal inferior lateral hayes were hypokinetic. Findings: Study Quality * Technically sub-optimal due to body habitus. ECG Findings * Normal sinus rhythm. Left Ventricle * LVEF 45-50%. * Definity echo contrast was used. * There is no LV thrombus. * Moderate concentric left ventricular hypertrophy. * Mild left ventricular diastolic dysfunction. * Mild global left ventricular systolic dysfunction. Right Ventricle * Normal right ventricular structure and function. Left Atrium * Mildly dilated left atrium. Right Atrium * Normal right atrial size. Interatrial Septum * No evidence of PFO with agitated saline contrast. Aortic Valve * Trileaflet aortic valve. * No aortic regurgitation. * No aortic stenosis. * Mildly sclerotic aortic valve leaflets. Mitral Valve * Normal mitral valve structure. * No mitral regurgitation. * No mitral stenosis. Tricuspid Valve * Normal tricuspid valve structure. * Trace tricuspid regurgitation. * No tricuspid stenosis. * No evidence of pulmonary hypertension. Pulmonic Valve * Trace pulmonic regurgitation. Aorta * Normally sized aortic root. Pericardium * The pericardium appears normal. IVC * Normal IVC dimensions and inspiratory collapse. Pulmonary Artery * Pulmonary artery not well visualized. Consult Discharge Plan - Plan Referrals: Kel Torres MD [Primary Care Provider] - (Please contact Dr. Torres to schedule your appointment within 5-7 days of discharge. ) (6) Atrial fibrillation Qualifiers: Atrial fibrillation type: chronic Qualified Code(s): I48.2 - Chronic atrial fibrillation (7) HTN (hypertension) Qualifiers: Hypertension type: essential hypertension Qualified Code(s): I10 - Essential (primary) hypertension
[2018-10-28] MEDS: MethylPREDNISolone 40 MG/ML VIAL IVP SCH (16:29)
[2018-10-29] MEDS: MethylPREDNISolone 40 MG/ML VIAL IVP SCH ×2 (05:32→17:40)
[2018-10-29 05:50] LABS: Immature Granulocytes % 0.9 % (0-4); Red Cell Distribution Width 13.3 % (11.5-14.5)
[2018-10-29 05:52] LABS: Hematocrit 37.2 % (37.5-50.1); Hemoglobin 12.5 g/dL (12.9-16.9); Immature Platelets 12.7 % (1.1-6.1); Lymphocytes # 0.5 K/mcL (0.6-4.6); Lymphocytes % 6.1 %; Mean Corpuscular HGB Conc 33.6 g/dL (31.6-35.5); Mean Corpuscular Hemoglobin 32.3 pg (28.0-33.3); Mean Corpuscular Volume 96.1 fL (83.0-100.0); Mean Platelet Volume 12.6 fL (9.4-12.4); Monocytes # 0.6 K/mcL (0.0-1.3); Monocytes % 7.1 %; Neutrophils # 6.7 K/mcL (1.6-8.9); Red Blood Count 3.87 M/mcL (4.19-5.50); Segmented Neutrophils % 85.9 %
[2018-10-29 06:04] LABS: Platelet Count 91 K/mcL (140-400)
[2018-10-29 06:16] LABS: BUN/Creatinine Ratio 23 (6-26); Blood Urea Nitrogen 19 mg/dL (8-23); Calcium 8.6 mg/dL (8.6-10.3); Carbon Dioxide 25 mEq/L (23-29); Chloride 98 mEq/L (98-107); Glucose 175 mg/dL (70-105); Magnesium 2.1 mg/dL (1.6-2.6); Osmolality,Calculated 285 (280-300); Potassium 3.8 mEq/L (3.5-5.1); Sodium 134 mEq/L (136-145); eGFR For Non-African Americans > 60 (> 60)
[2018-10-29] MEDS: Diltiazem CD (24hr) 120 MG CAPSULE PO SCH (08:53)
[2018-10-29] MEDS: Oseltamivir Phosphate 30 MG CAPSULE PO SCH ×2 (08:54→20:58)
[2018-10-29] MEDS: cefTRIAXone 1,000 MG in Water for inj. (sterile) 20 ML 10 ML IVP SCH (08:55)
[2018-10-29] MEDS: *HR* Heparin 5,000 UNIT/ML VIAL SQ SCH ×2 (08:56→20:58)
[2018-10-29] MEDS: Ipratropium/Albuterol Neb 3 ML IH SCH ×2 (10:45→21:23)
--- NOTE | 2018-10-29 15:21 | Internal Med Progress Note ---
Hospitalist Progress Note - Encounter Date of Encounter: 10/29/18 Time of Encounter: 14:55 - Subjective Interval History: Mr. Hernandez is a 77 year old male with past medical history is significant for hypertension, A. fib, hypothyroidism, ROLY on CPAP, aortic aneurysm S/P stent. presented to ER for with one week h/o progressively worsening SOB, Cough with greenish expectoration and chest congestion. He felt his whole-body weak, dizziness, cannot getup by himself. Patient also reports slurred speech. Patient denies one-sided weakness, facial drop, or one-sided numbness tingling. He was admitted in the hospital and placed him on bit shaver. He was started on empirical abx Rocephin, Azithromycin and IV steorids. Pt stated he is feeling better today. Still on 7 lit o2. Denied any CP. Still has moderate to severe SOB and LYLES. Cough with greenish / yellowish expectoration. - Exam Vitals: Temp Pulse Resp BP Pulse Ox 97.9 F 71 16 116/64 93 10/29/18 11:06 10/29/18 11:06 10/29/18 11:06 10/29/18 11:06 10/29/18 11:06 Exam: Gen: Alert, awake, Oriented to time,place and person, mild resp distress Chest: Diminished breath sounds B/L, Moderate to severe wheezing, No crackles, No rales Heart: S1S2+, RRR, No murmurs Abd: Soft, NT, BS +, No organomegaly Ext: No edema, pulses are palpable, No calf tenderness Neuro : Benign findings Skin: No rash. - Assessment and Plan (1) Acute respiratory failure with hypoxia Current Visit: Yes Status: Acute Assessment and Plan: Currently on 7 lit O2 Clinically pt looks better today He does not use O2 at home His CXR did not show any infiltrates, b/l atelectasis noticed Reviewed resp viral panel - positive for influenza A Strep PNA came back as positive cont Tamiflu will f.u on sputum cx Cont systemic steroids continue scheduled bronchodilator therapy Try to wean him off off the oxygen as he tolerates recommended frequent incentive spirometry (2) COPD with exacerbation Current Visit: Yes Status: Acute Assessment and Plan: as above (3) Streptococcal pneumonia Current Visit: Yes Status: Acute Assessment and Plan: His Strep PNA came back as positive Inc Rocephin to 2gm IV Daily continue close monitoring will repeat another CXR (4) Acute bronchitis Current Visit: Yes Status: Acute Assessment and Plan: Influenza A positive bronchitis also concerning for supra infection with bacteria on empirical abx Rocephin + Azithromycin (5) Slurred speech Current Visit: Yes Status: Acute Assessment and Plan: Most likely due to acute illness Less likely TIA/CVA. Slurred speech completely resolved after hydration. MRI of Head is negative for ischenia No further work up needed (6) Weakness generalized Current Visit: Yes Status: Acute Assessment and Plan: Possibly due to acute illness. Continue supportive treatment. (7) Atrial fibrillation Current Visit: No Status: Acute Assessment and Plan: HR fairly controlled due to resp failure Continue home medications Coreg and Cardizem for heart rate control. Patient is on Plavix. Not on anticoagulation at home possibly due to history of GI bleed. (8) HTN (hypertension) Current Visit: No Status: Chronic Assessment and Plan: stable BP resumed all home meds (9) Thyroid disease Current Visit: No Status: Chronic Assessment and Plan: Continue home medication Synthroid (10) DVT prophylaxis Current Visit: No Status: Acute Assessment and Plan: EPCDs (11) Dehydration Current Visit: Yes Status: Acute Assessment and Plan: resolved (12) Hyponatremia Current Visit: Yes Status: Acute Assessment and Plan: due to dehydration Improved - Time Spent with Patient Total time spent is greater than 50% in coordination of care (as documented) at patient's floor/unit and/or counseling patient: Internal Medicine: Result - Labs CBC & Chem 7: 10/29/18 05:25 10/29/18 05:25 Labs: Short CBC 10/29/18 Range/Units 05:25 WBC 7.8 D (4.3-11.1) K/mcL Hgb 12.5 L (12.9-16.9) g/dL Hct 37.2 L (37.5-50.1) % Plt Count 91 L (140-400) K/mcL Neutrophils # 6.7 (1.6-8.9) K/mcL BMP 10/29/18 05:25 Sodium 134 L Potassium 3.8 Chloride 98 Carbon Dioxide 25 BUN 19 Creatinine 0.83 Glucose 175 H Calcium 8.6 - Impressions Impressions Retroperitoneum Ultrasound 10/28/18 18:00 IMPRESSION: Bilateral simple renal cortical cysts. No evidence of hydronephrosis or intrarenal stones. D/ / Vu Webb MD / Vu Webb MD Interpreting Provider: Vu Webb MD Consult Discharge Plan - Plan Referrals: Kel Torres MD [Primary Care Provider] - (Please contact Dr. Torres to schedule your appointment within 5-7 days of discharge. ) (7) Atrial fibrillation Qualifiers: Atrial fibrillation type: chronic Qualified Code(s): I48.2 - Chronic atrial fibrillation (8) HTN (hypertension) Qualifiers: Hypertension type: essential hypertension Qualified Code(s): I10 - Essential (primary) hypertension
[2018-10-29] MEDS ORDERED: cefTRIAXone 1,000 MG in Water for inj. (sterile) 20 ML 10 ML IVP ONE (15:31)
[2018-10-29] MEDS ORDERED: cefTRIAXone 2,000 MG in 0.9 % Sodium Chloride Mini Bag 100 ML IVPB SCH (16:00)
[2018-10-29] MEDS: Azithromycin 500 MG in D5% in Water 250 ML IVPB SCH (16:04)
[2018-10-29] MEDS: Ondansetron 4 MG/2 ML VIAL IVP PRN (20:58)
[2018-10-30] MEDS: MethylPREDNISolone 40 MG/ML VIAL IVP SCH ×2 (05:27→18:00)
[2018-10-30 06:56] LABS: Basophils % 0.2 %; Hematocrit 39.5 % (37.5-50.1); Hemoglobin 12.9 g/dL (12.9-16.9); Immature Granulocytes % 1.8 % (0-4); Lymphocytes # 0.7 K/mcL (0.6-4.6); Lymphocytes % 7.7 %; Mean Corpuscular HGB Conc 32.7 g/dL (31.6-35.5); Mean Corpuscular Hemoglobin 31.2 pg (28.0-33.3); Mean Corpuscular Volume 95.6 fL (83.0-100.0); Mean Platelet Volume 12.5 fL (9.4-12.4); Monocytes # 0.9 K/mcL (0.0-1.3); Neutrophils # 7.2 K/mcL (1.6-8.9); Platelet Count 129 K/mcL (140-400); Red Blood Count 4.13 M/mcL (4.19-5.50); Red Cell Distribution Width 13.4 % (11.5-14.5); Segmented Neutrophils % 80.3 %
[2018-10-30 07:17] LABS: BUN/Creatinine Ratio 27 (6-26); Blood Urea Nitrogen 19 mg/dL (8-23); Calcium 9.1 mg/dL (8.6-10.3); Carbon Dioxide 25 mEq/L (23-29); Chloride 100 mEq/L (98-107); Glucose 155 mg/dL (70-105); Osmolality,Calculated 287 (280-300); Sodium 136 mEq/L (136-145); eGFR For Non-African Americans > 60 (> 60)
[2018-10-30] MEDS: Ipratropium/Albuterol Neb 3 ML IH SCH ×2 (09:26→19:30)
[2018-10-30] MEDS: Diltiazem CD (24hr) 120 MG CAPSULE PO SCH (09:36)
[2018-10-30] MEDS: cefTRIAXone 2,000 MG in Water for inj. (sterile) 20 ML 20 ML IVP SCH (09:36)
[2018-10-30] MEDS: *HR* Heparin 5,000 UNIT/ML VIAL SQ SCH ×2 (09:36→21:07)
[2018-10-30] MEDS: Oseltamivir Phosphate 30 MG CAPSULE PO SCH ×2 (09:36→21:07)
[2018-10-30] MEDS: Azithromycin 500 MG in D5% in Water 250 ML IVPB SCH (12:08)
--- NOTE | 2018-10-30 13:19 | Internal Med Progress Note ---
Hospitalist Progress Note - Encounter Date of Encounter: 10/30/18 Time of Encounter: 12:00 - Subjective Interval History: Mr. Hernandez is a 77 year old male with past medical history is significant for hypertension, A. fib, hypothyroidism, ROLY on CPAP, aortic aneurysm S/P stent. presented to ER for with one week h/o progressively worsening SOB, Cough with greenish expectoration and chest congestion. He felt his whole-body weak, dizziness, cannot getup by himself. Patient also reports slurred speech. Patient denies one-sided weakness, facial drop, or one-sided numbness tingling. He was admitted in the hospital and placed him on campus monitor. He was started on empirical abx Rocephin, Azithromycin and IV steorids. Pt stated he is feeling better today. Today he is on 5 lit o2. Denied any CP. Still has moderate to severe SOB and LYLES. Cough with greenish / yellowish expectoration. - Exam Vitals: Temp Pulse Resp BP Pulse Ox 98.4 F 85 16 132/71 93 10/30/18 11:35 10/30/18 11:35 10/30/18 11:35 10/30/18 11:35 10/30/18 11:35 Exam: Gen: Alert, awake, Oriented to time,place and person, mild resp distress Chest: Diminished breath sounds B/L, Moderate to severe wheezing, No crackles, No rales Heart: S1S2+, RRR, No murmurs Abd: Soft, NT, BS +, No organomegaly Ext: No edema, pulses are palpable, No calf tenderness Neuro : Benign findings Skin: No rash. - Assessment and Plan (1) Acute respiratory failure with hypoxia Current Visit: Yes Status: Acute Assessment and Plan: Currently on 5 lit O2 Clinically pt looks better today He does not use O2 at home His CXR did not show any infiltrates, b/l atelectasis noticed Reviewed resp viral panel - positive for influenza A Strep PNA came back as positive cont Tamiflu will f.u on sputum cx Cont systemic steroids continue scheduled bronchodilator therapy Try to wean him off off the oxygen as he tolerates recommended frequent incentive spirometry (2) COPD with exacerbation Current Visit: Yes Status: Acute Assessment and Plan: as above (3) Streptococcal pneumonia Current Visit: Yes Status: Acute Assessment and Plan: His Strep PNA came back as positive His repeat CXR showed worsening pneumonia in [facility] Inc Rocephin to 2gm IV Daily continue close monitoring (4) Acute bronchitis Current Visit: Yes Status: Acute Assessment and Plan: Influenza A positive bronchitis also concerning for supra infection with bacteria on empirical abx Rocephin + Azithromycin (5) Slurred speech Current Visit: Yes Status: Acute Assessment and Plan: Most likely due to acute illness Less likely TIA/CVA. Slurred speech completely resolved after hydration. MRI of Head is negative for ischenia No further work up needed (6) Weakness generalized Current Visit: Yes Status: Acute Assessment and Plan: Possibly due to acute illness. Continue supportive treatment. (7) Atrial fibrillation Current Visit: No Status: Acute Assessment and Plan: HR fairly controlled due to resp failure Continue home medications Coreg and Cardizem for heart rate control. Patient is on Plavix. Not on anticoagulation at home possibly due to history of GI bleed. (8) HTN (hypertension) Current Visit: No Status: Chronic Assessment and Plan: stable BP resumed all home meds (9) Thyroid disease Current Visit: No Status: Chronic Assessment and Plan: Continue home medication Synthroid (10) DVT prophylaxis Current Visit: No Status: Acute Assessment and Plan: EPCDs (11) Dehydration Current Visit: Yes Status: Acute Assessment and Plan: resolved (12) Hyponatremia Current Visit: Yes Status: Acute Assessment and Plan: due to dehydration Improved - Time Spent with Patient Total time spent is greater than 50% in coordination of care (as documented) at patient's floor/unit and/or counseling patient: Internal Medicine: Result - Labs CBC & Chem 7: 10/30/18 06:39 10/30/18 06:39 Labs: Short CBC 10/30/18 Range/Units 06:39 WBC 9.0 (4.3-11.1) K/mcL Hgb 12.9 (12.9-16.9) g/dL Hct 39.5 (37.5-50.1) % Plt Count 129 L (140-400) K/mcL Neutrophils # 7.2 (1.6-8.9) K/mcL BMP 10/30/18 06:39 Sodium 136 Potassium 4.0 Chloride 100 Carbon Dioxide 25 BUN 19 Creatinine 0.71 Glucose 155 H Calcium 9.1 - Impressions Impressions Chest X-Ray 10/29/18 17:45 IMPRESSION: Worsening hazy multifocal airspace disease particularly in the left lower lobe suggesting worsening pneumonia. The findings were sent to the [facility] at 6:03 pm on 10/29/2018to be communicated to a licensed caregiver. D/ / Vu Webb MD / Vu Webb MD Interpreting Provider: Vu Webb MD Consult Discharge Plan - Plan Referrals: Kel Torres MD [Primary Care Provider] - (Please contact Dr. Torres to schedule your appointment within 5-7 days of discharge. ) (7) Atrial fibrillation Qualifiers: Atrial fibrillation type: chronic Qualified Code(s): I48.2 - Chronic atrial fibrillation (8) HTN (hypertension) Qualifiers: Hypertension type: essential hypertension Qualified Code(s): I10 - Essential (primary) hypertension
[2018-10-30] MEDS: Ondansetron 4 MG/2 ML VIAL IVP PRN (15:30)
[2018-10-30] MEDS: Acetaminophen 325 MG TABLET PO PRN (21:13)
[2018-10-31] MEDS: MethylPREDNISolone 40 MG/ML VIAL IVP SCH ×2 (06:35→17:58)
[2018-10-31] MEDS: Diltiazem CD (24hr) 120 MG CAPSULE PO SCH (08:45)
[2018-10-31] MEDS: Oseltamivir Phosphate 30 MG CAPSULE PO SCH ×2 (08:45→21:48)
[2018-10-31] MEDS: *HR* Heparin 5,000 UNIT/ML VIAL SQ SCH ×2 (08:45→21:47)
[2018-10-31] MEDS: cefTRIAXone 2,000 MG in Water for inj. (sterile) 20 ML 20 ML IVP SCH (08:45)
[2018-10-31] MEDS: Ipratropium/Albuterol Neb 3 ML IH SCH ×2 (10:21→21:58)
[2018-10-31] MEDS: Azithromycin 500 MG in D5% in Water 250 ML IVPB SCH (12:00)
[2018-10-31] MEDS ORDERED: Furosemide 20 MG/2 ML VIAL IVP ONE (14:44)
--- NOTE | 2018-10-31 14:48 | Internal Med Progress Note ---
Hospitalist Progress Note - Encounter Date of Encounter: 10/31/18 Time of Encounter: 14:45 - Subjective Interval History: Mr. Hernandez is a 77 year old male with past medical history is significant for hypertension, A. fib, hypothyroidism, ROLY on CPAP, aortic aneurysm S/P stent. presented to ER for with one week h/o progressively worsening SOB, Cough with greenish expectoration and chest congestion. He felt his whole-body weak, dizziness, cannot getup by himself. Patient also reports slurred speech. Patient denies one-sided weakness, facial drop, or one-sided numbness tingling. He was admitted in the hospital and placed him on registered nurse cardiac. He was started on empirical abx Rocephin, Azithromycin and IV steorids. Today he is on 4 lit o2. Denied any CP. Still has moderate SOB and LYLES. However overall feels better today. - Exam Vitals: Temp Pulse Resp BP Pulse Ox 97.4 F L 77 20 171/74 93 10/31/18 12:08 10/31/18 12:08 10/31/18 12:08 10/31/18 12:08 10/31/18 12:08 Exam: Gen: Alert, awake, Oriented to time,place and person, mild resp distress Chest: Diminished breath sounds B/L, Moderate to severe wheezing, No crackles, No rales Heart: S1S2+, RRR, No murmurs Abd: Soft, NT, BS +, No organomegaly Ext: No edema, pulses are palpable, No calf tenderness Neuro : Benign findings Skin: No rash. - Assessment and Plan (1) Acute respiratory failure with hypoxia Current Visit: Yes Status: Acute Assessment and Plan: Currently on 4 lit O2 Clinically pt looks better today He does not use O2 at home Reviewed resp viral panel - positive for influenza A Strep PNA came back as positive cont Tamiflu will f.u on sputum cx Cont systemic steroids continue scheduled bronchodilator therapy Try to wean him off off the oxygen as he tolerates recommended frequent incentive spirometry will give IV Lasix 20mg x 1 dose today (2) COPD with exacerbation Current Visit: Yes Status: Acute Assessment and Plan: as above (3) Streptococcal pneumonia Current Visit: Yes Status: Acute Assessment and Plan: His Strep PNA came back as positive His repeat CXR showed worsening pneumonia in [facility] Cont Rocephin to 2gm IV Daily continue close monitoring (4) Acute bronchitis Current Visit: Yes Status: Acute Assessment and Plan: Influenza A positive bronchitis also concerning for supra infection with bacteria on empirical abx Rocephin + Azithromycin (5) Slurred speech Current Visit: Yes Status: Acute Assessment and Plan: Most likely due to acute illness Less likely TIA/CVA. Slurred speech completely resolved after hydration. MRI of Head is negative for ischenia No further work up needed (6) Weakness generalized Current Visit: Yes Status: Acute Assessment and Plan: Possibly due to acute illness. Continue supportive treatment. (7) Atrial fibrillation Current Visit: No Status: Acute Assessment and Plan: HR fairly controlled due to resp failure Continue home medications Coreg and Cardizem for heart rate control. Patient is on Plavix. Not on anticoagulation at home possibly due to history of GI bleed. (8) HTN (hypertension) Current Visit: No Status: Chronic Assessment and Plan: stable BP resumed all home meds (9) Thyroid disease Current Visit: No Status: Chronic Assessment and Plan: Continue home medication Synthroid (10) DVT prophylaxis Current Visit: No Status: Acute Assessment and Plan: SQ Heparin (11) Dehydration Current Visit: Yes Status: Acute Assessment and Plan: resolved (12) Hyponatremia Current Visit: Yes Status: Acute Assessment and Plan: due to dehydration Improved - Time Spent with Patient Total time spent is greater than 50% in coordination of care (as documented) at patient's floor/unit and/or counseling patient: Internal Medicine: Result - Labs CBC & Chem 7: 10/30/18 06:39 10/30/18 06:39 Consult Discharge Plan - Plan Referrals: Kel Torres MD [Primary Care Provider] - (Please contact Dr. Torres to schedule your appointment within 5-7 days of discharge. ) ____ (7) Atrial fibrillation Qualifiers: Atrial fibrillation type: chronic Qualified Code(s): I48.2 - Chronic atrial fibrillation (8) HTN (hypertension) Qualifiers: Hypertension type: essential hypertension Qualified Code(s): I10 - Essential (primary) hypertension
[2018-11-01] MEDS: Acetaminophen 325 MG TABLET PO PRN ×2 (04:43→12:58)
[2018-11-01] MEDS: MethylPREDNISolone 40 MG/ML VIAL IVP SCH (05:51)
[2018-11-01 06:50] VITALS: BP 131/94
[2018-11-01] MEDS: Ipratropium/Albuterol Neb 3 ML IH SCH (07:31)
--- NOTE | 2018-11-01 07:50 | Electrocardiograph Report ---
[place] [id number] Test Date: 2018-10-27 Pat Name: Arnold Hernandez Department: [id number] Room: 3B Gender: M Care Management Specialist: : [id number] Requested By: Dru Warren Order Number: [id number] Reading MD: Doron Dyer Measurements Intervals [place] Rate: 107 P: 37 NV: 159 QRS: -17 QRSD: 99 T: 6 QT: 336 QTc: 449 Interpretive Statements Sinus tachycardia Borderline left axis deviation Electronically Signed On 11-01-2018 7:48:34 EDT by Doron Dyer
[2018-11-01] MEDS: Oseltamivir Phosphate 30 MG CAPSULE PO SCH (09:24)
[2018-11-01] MEDS: Diltiazem CD (24hr) 120 MG CAPSULE PO SCH (09:24)
[2018-11-01] MEDS: cefTRIAXone 2,000 MG in Water for inj. (sterile) 20 ML 20 ML IVP SCH (09:25)
[2018-11-01] MEDS: *HR* Heparin 5,000 UNIT/ML VIAL SQ SCH (09:25)
--- NOTE | 2018-11-01 10:15 | Discharge Summary ---
- NOTES TO OUTPATIENT PROVIDER Notes to Outpatient Provider: Follow up with PCP in one week. Please finish the rest of the course of antibiotics and tapering dose of steroids. Please use 2 lit oxygen continuously. Orders not resulted at time of discharge: Pending orders 10/27/18 09:33 Culture,Blood [] Stat Date of Encounter: 11/01/18 Time of Encounter: 10:13 - Discharge Diagnosis (1) Acute respiratory failure with hypoxia Priority: Primary Status: Acute (2) COPD with exacerbation Priority: Primary Status: Acute (3) Streptococcal pneumonia Priority: Primary Status: Acute (4) Acute bronchitis Priority: Secondary Status: Acute Qualifiers: Bronchitis organism: Streptococcus Qualified Code(s): J20.2 - Acute bronchitis due to streptococcus (5) Slurred speech Priority: Secondary Status: Acute (6) Weakness generalized Priority: Secondary Status: Acute (7) Atrial fibrillation Priority: Secondary Status: Acute Qualifiers: Atrial fibrillation type: chronic Qualified Code(s): I48.2 - Chronic atrial fibrillation (8) HTN (hypertension) Priority: Secondary Status: Chronic Qualifiers: Hypertension type: essential hypertension Qualified Code(s): I10 - Essential (primary) hypertension (9) Thyroid disease Priority: Secondary Status: Chronic (10) DVT prophylaxis Priority: Secondary Status: Acute (11) Dehydration Priority: Secondary Status: Acute (12) Hyponatremia Priority: Secondary Status: Acute Hospital course: Mr. Hernandez is a 77 year old male with past medical history is significant for hypertension, A. fib, hypothyroidism, ROLY on CPAP, aortic aneurysm S/P stent. presented to ER for with one week h/o progressively worsening SOB, Cough with greenish expectoration and chest congestion. He felt his whole-body weak, dizziness, cannot getup by himself. Patient also reports slurred speech. Patient denies one-sided weakness, facial drop, or one-sided numbness tingling. He was admitted in the hospital and placed him on director of cardiac cath lab. He was started on empirical abx Rocephin, Azithromycin and IV steorids. His urine step to pneumonia antigen came back positive. So continued him on high-dose IV Rocephin 2 gms daily. Initial he was required 7 lit oxygen which got improved slowly. Currently he is on 2 lit oxygen at resting. So recommend to continue using 2 L at home. Will d/c him home in stable condition today with PO Steroids, Abx Levaquin and rescue inhaler Albuterol. He finished his full course of Tamiflu here. He does have paroxysmal Afib for which he was not on anti coag due to GI bleed. - Time Spent with Patient Total time spent providing and/or coordinating discharge services: - Discharge Medications Prescriptions: New Albuterol Sulfate [Albuterol Inhaler] 2 puff IH Q6HR PRN #1 hfa.aer.ad PRN Reason: Shortness Of Breath Guaifenesin [Mucinex] 600 mg PO BID #20 tab.er.12h Levofloxacin [Levaquin] 750 mg PO DAILY #4 tablet predniSONE [PredniSONE] 40 mg PO DAILY #10 tablet Continue Garlic 1,000 mg PO QPM Levothyroxine [Synthroid] 75 mcg PO DAILY Allopurinol [Zyloprim] 300 mg PO QPM Lisinopril [Zestril] 20 mg PO BID Clopidogrel [Plavix] 75 mg PO DAILY #30 tablet dilTIAZem HCl [Diltiazem HCl] 120 mg PO QPM Ranitidine HCl [Acid Greeting Card Editor] 150 mg PO BID Hydrochlorothiazide [Microzide] 12.5 mg PO DAILY Loratadine [Allergy Relief] 10 mg PO DAILY Carvedilol 3.125 mg PO BID [place]-3/Dha/Epa/Fish Oil [[facility] Fish Oil 1,000 mg Softgel] 1 cap PO QPM Non-Formulary Medication 1 tab PO BID Amlodipine Besylate 10 mg PO DAILY Home Medications: Garlic 1,000 mg PO QPM 11/17/15 [History] Allopurinol [Zyloprim] 300 mg PO QPM 04/03/17 [History] Levothyroxine [Synthroid] 75 mcg PO DAILY 04/03/17 [History] Lisinopril [Zestril] 20 mg PO BID 04/03/17 [History] Clopidogrel [Plavix] 75 mg PO DAILY #30 tablet 04/05/17 [Rx] Ranitidine HCl [Acid Greeting Card Editor] 150 mg PO BID 06/25/17 [History] dilTIAZem HCl [Diltiazem HCl] 120 mg PO QPM 06/25/17 [History] Hydrochlorothiazide [Microzide] 12.5 mg PO DAILY 10/27/18 [History] Loratadine [Allergy Relief] 10 mg PO DAILY 10/27/18 [History] Amlodipine Besylate 10 mg PO DAILY 10/28/18 [History] Carvedilol 3.125 mg PO BID 10/28/18 [History] Non-Formulary Medication 1 tab PO BID 10/28/18 [History] [place]-3/Dha/Epa/Fish Oil [[facility] Fish Oil 1,000 mg Softgel] 1 cap PO QPM 10/28/18 [History] Albuterol Sulfate [Albuterol Inhaler] 2 puff IH Q6HR PRN #1 hfa.aer.ad 11/01/18 [Rx] Guaifenesin [Mucinex] 600 mg PO BID #20 tab.er.12h 11/01/18 [Rx] Levofloxacin [Levaquin] 750 mg PO DAILY #4 tablet 11/01/18 [Rx] predniSONE [PredniSONE] 40 mg PO DAILY #10 tablet 11/01/18 [Rx] Allergies/Adverse Reactions: Allergy/AdvReac Type Severity Reaction Status Date / Time No Known Allergies Allergy Verified 06/25/17 08:01 Date of admission: 10/28/18 11:45 Primary care physician: Kel Torres MD Consults: 10/28/18 16:09 Consult to Nurse Navigator [CONS] Routine Comment: COPD - Constitutional Vitals: Temp Pulse Resp BP Pulse Ox 98.5 F 83 14 131/94 94 11/01/18 06:49 11/01/18 06:49 11/01/18 07:31 11/01/18 06:49 11/01/18 09:33 General appearance: Present: cooperative, A&O X 3, no acute distress, answers questions appropriately Exam: Gen: Alert, awake, Oriented to time,place and person,no resp distress Chest: Diminished breath sounds B/L, Moderate wheezing, No crackles, No rales Heart: S1S2+, RRR, No murmurs Abd: Soft, NT, BS +, No organomegaly Ext: No edema, pulses are palpable, No calf tenderness Neuro : Benign findings Skin: No rash. - Patient Status Disposition: Home, Self-Care Condition: Good Overall status at discharge: patient is back to baseline - Discharge Instructions Follow Up With: Kel Torres MD [Primary Care Provider] - (Please contact Dr. Torres to schedule your appointment within 5-7 days of discharge. ) Forms: ED Satisfaction Letter - Diet and Activity Activity: wear oxygen at all times (2 lit) Diet: low salt diet
[2018-11-01] MEDS: Ondansetron 4 MG/2 ML VIAL IVP PRN (12:58)
== END 2018-11-01 14:17 | disposition home or self-care (01) | DRG 193 ==
LOC: EMEROOARM 08:30 → 3BNU 08:30 → SUATTDRO 10-28 11:45
PROVIDERS: ADMIT Internal Medicine; ATTEND Family Medicine

== ENCOUNTER 2019-04-16 11:30 | Inpatient (IN) ==
[2019-04-16] MEDS ORDERED: Isovue-370 500 ML BOTTLE IVP ONE (11:33)
[2019-04-16] MEDS ORDERED: 0.9 % Sodium Chloride 1,000 ML IVC ONE ×3 (11:33→13:55)
[2019-04-16 11:41] LABS: VBG HCO3 19 mEq/L (21-27); VBG PCO2 30 mmHg (41-51); VBG PH 7.41 pH Units (7.32-7.42); VBG PO2 92 mmHg (25-50)
[2019-04-16] MEDS ORDERED: 0.9 % Sodium Chloride 250 ML ONE ×2 (11:42→14:45)
--- NOTE | 2019-04-16 11:49 | Emergency Department Note ---
Disposition Clinical Impression: Retroperitoneal hemorrhage Hypotension Qualifiers: Hypotension type: hypotension due to hypovolemia Qualified Code(s): I95.89 - Other hypotension Disposition: Admitted As Inpatient Condition: Critical Referrals: Kelvin Loya DO [Non-Partnered Physician] - Time of Disposition: 16:23 General Adult HPI - General Chief complaint: ED Altered Mental Status Stated complaint: AMS Time Seen by Provider: 04/16/19 11:32 Nursing Notes Reviewed: Yes Vital Signs Reviewed: Yes - Related Data Home Medications Medication Instructions Recorded Confirmed Garlic 1,000 mg PO QPM 11/17/15 11/15/18 Allopurinol [Zyloprim] 300 mg PO QPM 04/03/17 11/15/18 Levothyroxine [Synthroid] 75 mcg PO DAILY 04/03/17 11/15/18 Ranitidine HCl [Acid Sheet Metal Worker Maintenance] 150 mg PO BID 06/25/17 11/15/18 dilTIAZem HCl [Diltiazem HCl] 120 mg PO QPM 06/25/17 11/15/18 Loratadine [Allergy Relief] 10 mg PO DAILY 10/27/18 11/15/18 Carvedilol 3.125 mg PO BID 10/28/18 11/15/18 [place]-3/Dha/Epa/Fish Oil [Cvs Fish 1 cap PO QPM 10/28/18 11/15/18 Oil 1,000 mg Softgel] Previous Rx's Medication Instructions Recorded Clopidogrel [Plavix] 75 mg PO DAILY #30 tablet 04/05/17 Albuterol Sulfate [Proventil 2 puff IH Q6HR PRN #1 hfa.aer.ad 11/01/18 Inhaler] Omeprazole [PriLOSEC] 20 mg PO BIDAC #60 capsule.dr 11/17/18 Allergies Allergy/AdvReac Type Severity Reaction Status Date / Time No Known Allergies Allergy Verified 11/15/18 16:54 Past Medical History - Past Medical History Medical history: Reports: atrial fibrillation, COPD, hyperlipidemia, hypertension, thyroid disease Surgical history: Reports: orthopedic, other, other Psychiatric history: Reports: no psych history - Social History Smoking Status: Unknown if ever smoked Smokeless Tobacco Status: No Alcohol use: Reports: none Drug use: Reports: none Course Vital Signs Temperature 98.2 F 04/16/19 11:37 Pulse Rate 104 04/16/19 11:37 Respiratory Rate 19 04/16/19 11:37 Blood Pressure 73/32 04/16/19 11:37 O2 Sat by Pulse Oximetry 92 04/16/19 11:37 Temperature 98.2 F 04/16/19 11:37 Pulse Rate 110 04/16/19 15:28 Respiratory Rate 18 04/16/19 15:42 Blood Pressure 150/136 04/16/19 15:42 O2 Sat by Pulse Oximetry 97 04/16/19 15:42 Oxygen Delivery Oxygen Delivery Ventilator Medical Decision Making - Lab Data Result diagrams: 04/16/19 14:48 04/16/19 11:35 Lab Results 04/16/19 04/16/19 04/16/19 Range/Units 11:35 11:35 11:35 WBC 10.9 (4.3-11.1) K/mcL RBC 3.45 L (4.19-5.50) M/mcL Hgb 11.3 L (12.9-16.9) g/dL Hct 35.4 L (37.5-50.1) % MCV 102.6 H (83.0-100.0) fL MCH 32.8 (28.0-33.3) pg MCHC 31.9 (31.6-35.5) g/dL RDW 13.3 (11.5-14.5) % Plt Count 178 (140-400) K/mcL MPV 11.2 (9.4-12.4) fL Seg Neutrophils % 66.0 % Band Neutrophils % 6.0 H (0-4) % Lymphocytes % 21.0 % Monocytes % 6.0 % Eosinophils % 1.0 % Neutrophils # 7.9 (1.6-8.9) K/mcL Lymphocytes # 2.3 (0.6-4.6) K/mcL Monocytes # 0.7 (0.0-1.3) K/mcL Eosinophils # 0.1 (0.0-0.6) K/mcL Reactive Lymphocytes Present A (Not Present) Platelet Estimate Normal (Normal) PT 16.1 H (9.4-12.1) Seconds INR 1.4 APTT 27.7 (26.0-36.0) Seconds Sample Site ABG pH (7.32-7.45) pH Units ABG pCO2 (35-45) mmHg ABG pO2 (85-104) mmHg ABG HCO3 (21-27) mEq/L ABG Total CO2 (20-26) mEq/L ABG O2 Saturation (95-98) % ABG Base Excess (-2 to 3) mEq/L Floyd Test VBG pH (7.32-7.42) pH Units VBG pCO2 (41-51) mmHg VBG pO2 (25-50) mmHg VBG HCO3 (21-27) mEq/L Respiration Rate O2 Delivery Device Blood Gas Modality Inspired O2 (1-15=lpm [id number]=%) Tidal Volume cc PEEP cm H2O Sodium 137 (136-145) mEq/L Potassium 3.9 (3.5-5.1) mEq/L Chloride 102 (98-107) mEq/L Carbon Dioxide 20 L (23-29) mEq/L BUN 14 (8-23) mg/dL Creatinine 1.07 (0.70-1.30) mg/dL Est GFR ( Amer) > 60 (> 60) Est GFR (Non-Af Amer) > 60 (> 60) BUN/Creatinine Ratio 13 (6-26) Glucose 263 H (70-105) mg/dL Calculated Osmolality 294 (280-300) Lactic Acid (0.5-2.2) mmol/L Calcium 8.3 L (8.6-10.3) mg/dL Total Bilirubin 0.7 (0.3-1.0) mg/dL Direct Bilirubin 0.1 (0.0-0.2) mg/dL Indirect Bilirubin 0.6 (0.0-1.2) mg/dL AST 14 (13-39) Units/L ALT 10 (7-52) Units/L Alkaline Phosphatase 52 (34-104) Units/L Troponin I < 0.03 (< 0.04) ng/mL Serum Total Protein 6.3 L (6.4-8.9) g/dL Albumin 4.0 (3.5-5.7) g/dL Globulin 2.3 L (2.4-3.5) g/dL Albumin/Globulin Ratio 1.7 (1.1-2.2) Amylase 49 (29-103) Units/L Lipase 22 (11-82) Units/L Urine Color (Yellow) Urine Clarity (Clear) Urine pH (5.0-8.0) pH Units Ur Specific [place] (1.010-1.025) Urine Protein (Neg-Trace) mg/dL Urine Glucose (UA) (Normal) mg/dL Urine Ketones (Negative) mg/dL Urine Blood (Negative) Urine Nitrite (Negative) Urine Bilirubin (Negative) Urine Urobilinogen (Normal) mg/dL Ur Leukocyte Esterase (Negative) Urine Microscopic RBC (0-3) per hpf Urine Microscopic WBC (0-3) per hpf Ur Squamous Epith Cells (None-Few) per lpf Urine Bacteria (None-Few) per hpf Hyaline Casts (None-Few) per lpf Ur Culture Indicated? (NO) Stool Occult Bld Scrn (Negative) Blood Type Antibody Screen Antibody Identification Crossmatch MTS Gel Crossmatch 04/16/19 04/16/19 04/16/19 Range/Units 11:37 12:01 12:01 WBC (4.3-11.1) K/mcL RBC (4.19-5.50) M/mcL Hgb (12.9-16.9) g/dL Hct (37.5-50.1) % MCV (83.0-100.0) fL MCH (28.0-33.3) pg MCHC (31.6-35.5) g/dL RDW (11.5-14.5) % Plt Count (140-400) K/mcL MPV (9.4-12.4) fL Seg Neutrophils % % Band Neutrophils % (0-4) % Lymphocytes % % Monocytes % % Eosinophils % % Neutrophils # (1.6-8.9) K/mcL Lymphocytes # (0.6-4.6) K/mcL Monocytes # (0.0-1.3) K/mcL Eosinophils # (0.0-0.6) K/mcL Reactive Lymphocytes (Not Present) Platelet Estimate (Normal) PT (9.4-12.1) Seconds INR APTT (26.0-36.0) Seconds Sample Site ABG pH (7.32-7.45) pH Units ABG pCO2 (35-45) mmHg ABG pO2 (85-104) mmHg ABG HCO3 (21-27) mEq/L ABG Total CO2 (20-26) mEq/L ABG O2 Saturation (95-98) % ABG Base Excess (-2 to 3) mEq/L Floyd Test VBG pH 7.41 (7.32-7.42) pH Units VBG pCO2 30 L (41-51) mmHg VBG pO2 92 H (25-50) mmHg VBG HCO3 19 L (21-27) mEq/L Respiration Rate O2 Delivery Device Blood Gas Modality Inspired O2 (1-15=lpm [id number]=%) Tidal Volume cc PEEP cm H2O Sodium (136-145) mEq/L Potassium (3.5-5.1) mEq/L Chloride (98-107) mEq/L Carbon Dioxide (23-29) mEq/L BUN (8-23) mg/dL Creatinine (0.70-1.30) mg/dL Est GFR ( Amer) (> 60) Est GFR (Non-Af Amer) (> 60) BUN/Creatinine Ratio (6-26) Glucose (70-105) mg/dL Calculated Osmolality (280-300) Lactic Acid 4.4 H* (0.5-2.2) mmol/L Calcium (8.6-10.3) mg/dL Total Bilirubin (0.3-1.0) mg/dL Direct Bilirubin (0.0-0.2) mg/dL Indirect Bilirubin (0.0-1.2) mg/dL AST (13-39) Units/L ALT (7-52) Units/L Alkaline Phosphatase (34-104) Units/L Troponin I (< 0.04) ng/mL Serum Total Protein (6.4-8.9) g/dL Albumin (3.5-5.7) g/dL Globulin (2.4-3.5) g/dL Albumin/Globulin Ratio (1.1-2.2) Amylase (29-103) Units/L Lipase (11-82) Units/L Urine Color (Yellow) Urine Clarity (Clear) Urine pH (5.0-8.0) pH Units Ur Specific [place] (1.010-1.025) Urine Protein (Neg-Trace) mg/dL Urine Glucose (UA) (Normal) mg/dL Urine Ketones (Negative) mg/dL Urine Blood (Negative) Urine Nitrite (Negative) Urine Bilirubin (Negative) Urine Urobilinogen (Normal) mg/dL Ur Leukocyte Esterase (Negative) Urine Microscopic RBC (0-3) per hpf Urine Microscopic WBC (0-3) per hpf Ur Squamous Epith Cells (None-Few) per lpf Urine Bacteria (None-Few) per hpf Hyaline Casts (None-Few) per lpf Ur Culture Indicated? (NO) Stool Occult Bld Scrn (Negative) Blood Type O POSITIVE Antibody Screen POSITIVE Antibody Identification Inconclusive Crossmatch See Detail MTS Gel Crossmatch See Detail 04/16/19 04/16/19 04/16/19 Range/Units 12:04 12:08 12:20 WBC (4.3-11.1) K/mcL RBC (4.19-5.50) M/mcL Hgb (12.9-16.9) g/dL Hct (37.5-50.1) % MCV (83.0-100.0) fL MCH (28.0-33.3) pg MCHC (31.6-35.5) g/dL RDW (11.5-14.5) % Plt Count (140-400) K/mcL MPV (9.4-12.4) fL Seg Neutrophils % % Band Neutrophils % (0-4) % Lymphocytes % % Monocytes % % Eosinophils % % Neutrophils # (1.6-8.9) K/mcL Lymphocytes # (0.6-4.6) K/mcL Monocytes # (0.0-1.3) K/mcL Eosinophils # (0.0-0.6) K/mcL Reactive Lymphocytes (Not Present) Platelet Estimate (Normal) PT (9.4-12.1) Seconds INR APTT (26.0-36.0) Seconds Sample Site ABG pH (7.32-7.45) pH Units ABG pCO2 (35-45) mmHg ABG pO2 (85-104) mmHg ABG HCO3 (21-27) mEq/L ABG Total CO2 (20-26) mEq/L ABG O2 Saturation (95-98) % ABG Base Excess (-2 to 3) mEq/L Floyd Test VBG pH 7.33 (7.32-7.42) pH Units VBG pCO2 36 L (41-51) mmHg VBG pO2 129 H (25-50) mmHg VBG HCO3 19 L (21-27) mEq/L Respiration Rate O2 Delivery Device Blood Gas Modality Inspired O2 (1-15=lpm [id number]=%) Tidal Volume cc PEEP cm H2O Sodium (136-145) mEq/L Potassium (3.5-5.1) mEq/L Chloride (98-107) mEq/L Carbon Dioxide (23-29) mEq/L BUN (8-23) mg/dL Creatinine (0.70-1.30) mg/dL Est GFR ( Amer) (> 60) Est GFR (Non-Af Amer) (> 60) BUN/Creatinine Ratio (6-26) Glucose (70-105) mg/dL Calculated Osmolality (280-300) Lactic Acid (0.5-2.2) mmol/L Calcium (8.6-10.3) mg/dL Total Bilirubin (0.3-1.0) mg/dL Direct Bilirubin (0.0-0.2) mg/dL Indirect Bilirubin (0.0-1.2) mg/dL AST (13-39) Units/L ALT (7-52) Units/L Alkaline Phosphatase (34-104) Units/L Troponin I (< 0.04) ng/mL Serum Total Protein (6.4-8.9) g/dL Albumin (3.5-5.7) g/dL Globulin (2.4-3.5) g/dL Albumin/Globulin Ratio (1.1-2.2) Amylase (29-103) Units/L Lipase (11-82) Units/L Urine Color Yellow (Yellow) Urine Clarity Clear (Clear) Urine pH 7.5 (5.0-8.0) pH Units Ur Specific [place] 1.016 (1.010-1.025) Urine Protein 30 H (Neg-Trace) mg/dL Urine Glucose (UA) Normal (Normal) mg/dL Urine Ketones Negative (Negative) mg/dL Urine Blood Small H (Negative) Urine Nitrite Negative (Negative) Urine Bilirubin Negative (Negative) Urine Urobilinogen Normal (Normal) mg/dL Ur Leukocyte Esterase Negative (Negative) Urine Microscopic RBC 5-15 H (0-3) per hpf Urine Microscopic WBC 0-3 (0-3) per hpf Ur Squamous Epith Cells Many H (None-Few) per lpf Urine Bacteria None Seen (None-Few) per hpf Hyaline Casts None Seen (None-Few) per lpf Ur Culture Indicated? NO (NO) Stool Occult Bld Scrn Negative (Negative) Blood Type Antibody Screen Antibody Identification Crossmatch MTS Gel Crossmatch 04/16/19 04/16/19 04/16/19 Range/Units 13:12 14:48 15:34 WBC (4.3-11.1) K/mcL RBC (4.19-5.50) M/mcL Hgb 8.9 L D 10.3 L (12.9-16.9) g/dL Hct 28.2 L 32.0 L (37.5-50.1) % MCV (83.0-100.0) fL MCH (28.0-33.3) pg MCHC (31.6-35.5) g/dL RDW (11.5-14.5) % Plt Count (140-400) K/mcL MPV (9.4-12.4) fL Seg Neutrophils % % Band Neutrophils % (0-4) % Lymphocytes % % Monocytes % % Eosinophils % % Neutrophils # (1.6-8.9) K/mcL Lymphocytes # (0.6-4.6) K/mcL Monocytes # (0.0-1.3) K/mcL Eosinophils # (0.0-0.6) K/mcL Reactive Lymphocytes (Not Present) Platelet Estimate (Normal) PT (9.4-12.1) Seconds INR APTT (26.0-36.0) Seconds Sample Site L Radial ABG pH 7.28 L (7.32-7.45) pH Units ABG pCO2 46 H (35-45) mmHg ABG pO2 87 (85-104) mmHg ABG HCO3 22 (21-27) mEq/L ABG Total CO2 23 (20-26) mEq/L ABG O2 Saturation 95 (95-98) % ABG Base Excess -5 L (-2 to 3) mEq/L Floyd Test N/A VBG pH (7.32-7.42) pH Units VBG pCO2 (41-51) mmHg VBG pO2 (25-50) mmHg VBG HCO3 (21-27) mEq/L Respiration Rate 14 O2 Delivery Device AeroMask Blood Gas Modality BiLevel Inspired O2 50.0 (1-15=lpm [id number]=%) Tidal Volume 500 cc PEEP 5 cm H2O Sodium (136-145) mEq/L Potassium (3.5-5.1) mEq/L Chloride (98-107) mEq/L Carbon Dioxide (23-29) mEq/L BUN (8-23) mg/dL Creatinine (0.70-1.30) mg/dL Est GFR ( Amer) (> 60) Est GFR (Non-Af Amer) (> 60) BUN/Creatinine Ratio (6-26) Glucose (70-105) mg/dL Calculated Osmolality (280-300) Lactic Acid (0.5-2.2) mmol/L Calcium (8.6-10.3) mg/dL Total Bilirubin (0.3-1.0) mg/dL Direct Bilirubin (0.0-0.2) mg/dL Indirect Bilirubin (0.0-1.2) mg/dL AST (13-39) Units/L ALT (7-52) Units/L Alkaline Phosphatase (34-104) Units/L Troponin I (< 0.04) ng/mL Serum Total Protein (6.4-8.9) g/dL Albumin (3.5-5.7) g/dL Globulin (2.4-3.5) g/dL Albumin/Globulin Ratio (1.1-2.2) Amylase (29-103) Units/L Lipase (11-82) Units/L Urine Color (Yellow) Urine Clarity (Clear) Urine pH (5.0-8.0) pH Units Ur Specific [place] (1.010-1.025) Urine Protein (Neg-Trace) mg/dL Urine Glucose (UA) (Normal) mg/dL Urine Ketones (Negative) mg/dL Urine Blood (Negative) Urine Nitrite (Negative) Urine Bilirubin (Negative) Urine Urobilinogen (Normal) mg/dL Ur Leukocyte Esterase (Negative) Urine Microscopic RBC (0-3) per hpf Urine Microscopic WBC (0-3) per hpf Ur Squamous Epith Cells (None-Few) per lpf Urine Bacteria (None-Few) per hpf Hyaline Casts (None-Few) per lpf Ur Culture Indicated? (NO) Stool Occult Bld Scrn (Negative) Blood Type Antibody Screen Antibody Identification Crossmatch MTS Gel Crossmatch Critical Care Time Critical Care Time: Yes Total Critical Care Time: 120 Attestation: Critical care performed: Time is exclusive of separately billable procedures. Time includes: direct patient care, patient reassessment, coordination of patient care, interpretation of data (laboratory data, radiology data, and respiratory data), review of patient's medical records, medical consultation and documentation of patient care. Procedures included in critical care time: Procedures excluded from critical care time: Attestation Statement - Attestation Attestation: I examined this patient and my medical decision-making was reviewed with the Resident Physician. I agree with the documented findings, disposition and treatment plan as described except to the extent set forth below. Patient presents to the emergency Department with altered mental status. Patient had an episode where he experienced severe pain in his low back and lower abdomen this morning. He had a syncopal episode and collapsed on the couch. He is been poorly responsive. On arrival here patient is awake alert and answering questions appropriately. He is complaining of lower abdominal pain. He does have a history of a AAA repair 5 years ago. On examination he is pale, diaphoretic, lower abdominal tenderness. Plan. Orders place. Patient immediately to CT scan for dissection study., Blood called for. Labs sent. EKG reviewed with resident with no acute ischemic changes. Reviewed with resident. Patient appears to have a vasovagal syncope secondary to volume dep letion. Patient reevaluated at 1200. Following CT. Blood pressure improved to 112 systolic. holding blood transfusion at this time. Awaiting CT read. Vascular surgery Dr Fishman to bedside to evaluate for edoleak. PCC AND TXA ordered from pharmacy. Massive transfusion protocol requested. Vascular surgery does not feel the patient is emergently to the OR. 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 I did review the images again with the interventional radiologist. We will continue to volume resuscitate the patient. This obligated by the fact that he has antibodies. Massive transfusion protocol discontinued. He did become more hypotensive So 2 more units of trauma blood were ordered. Type and screen still pending. Dr. Fishman's evaluated the patient. He is admitted to ICU. ICU doc sathya concern for IV access. They went to place a femoral line. We thought the patient will be best served by us placing an ultrasound-guided central venous catheter in the right IJ. I was present for the central line insertion that was uncomplicated with Dr. Cardenas. Hospitalist requesting intubation. Patient was electively intubated by Dr. Fried with my supervision. Unable to pass a 7.5 ET tube on first attempt secondary to edema of the cords. 7.0 tube easily passed on second attempt using CMAC. Patient continues to deteriorate. Conversation between storage worker and vascular surgery. Patient will go to OR. Blood bank notified. Patient has been cleared of any significant antibodies. Requested crossmatch of 10 units packed red cells. Patient has FFP transfusing at this time. We will also order platelets. Patient went to the OR. Patient had 6 units of packed cells crossmatched blood bank. Bedside report given to anesthesia. Patient was mildly hypertensive at the time of transfer.
[2019-04-16 11:51] LABS: Hematocrit 35.4 % (37.5-50.1); Hemoglobin 11.3 g/dL (12.9-16.9); Mean Corpuscular HGB Conc 31.9 g/dL (31.6-35.5); Mean Corpuscular Hemoglobin 32.8 pg (28.0-33.3); Mean Corpuscular Volume 102.6 fL (83.0-100.0); Mean Platelet Volume 11.2 fL (9.4-12.4); Platelet Count 178 K/mcL (140-400); Red Blood Count 3.45 M/mcL (4.19-5.50); Red Cell Distribution Width 13.3 % (11.5-14.5); White Blood Count 10.9 K/mcL (4.3-11.1)
[2019-04-16] MEDS ORDERED: *HR* FentaNYL (PF) 100 MCG/2 ML VIAL IVP ONE (12:03)
[2019-04-16 12:04] LABS: INR 1.4; Prothrombin Time 16.1 Seconds (9.4-12.1)
[2019-04-16 12:06] LABS: Activated Partial Thrombo Time 27.7 Seconds (26.0-36.0)
[2019-04-16 12:09] LABS: VBG HCO3 19 mEq/L (21-27); VBG PCO2 36 mmHg (41-51); VBG PH 7.33 pH Units (7.32-7.42); VBG PO2 129 mmHg (25-50)
[2019-04-16 12:14] LABS: Alanine Aminotransferase 10 Units/L (7-52); Albumin/Globulin Ratio 1.7 (1.1-2.2); Alkaline Phosphatase 52 Units/L (34-104); Amylase 49 Units/L (29-103); Aspartate Amino Transferase 14 Units/L (13-39); BUN/Creatinine Ratio 13 (6-26); Bilirubin,Direct 0.1 mg/dL (0.0-0.2); Bilirubin,Indirect 0.6 mg/dL (0.0-1.2); Bilirubin,Total 0.7 mg/dL (0.3-1.0); Blood Urea Nitrogen 14 mg/dL (8-23); Calcium 8.3 mg/dL (8.6-10.3); Carbon Dioxide 20 mEq/L (23-29); Chloride 102 mEq/L (98-107); Globulin 2.3 g/dL (2.4-3.5); Glucose 263 mg/dL (70-105); Lipase 22 Units/L (11-82); Osmolality,Calculated 294 (280-300); Potassium 3.9 mEq/L (3.5-5.1); Sodium 137 mEq/L (136-145); Total Protein 6.3 g/dL (6.4-8.9); eGFR For African Americans > 60 (> 60); eGFR For Non-African Americans > 60 (> 60)
[2019-04-16 12:15] LABS: Troponin I < 0.03 ng/mL (< 0.04)
[2019-04-16 12:16] LABS: Eosinophils # 0.1 K/mcL (0.0-0.6); Lymphocytes # 2.3 K/mcL (0.6-4.6); Monocytes # 0.7 K/mcL (0.0-1.3); Neutrophils # 7.9 K/mcL (1.6-8.9); Platelet Estimate Normal (Normal); Reactive Lymphocytes Present (Not Present)
[2019-04-16] MEDS ORDERED: 0.9 % Sodium Chloride 1,000 ML ONE (12:16)
[2019-04-16 12:26] LABS: Bilirubin,Urine Negative (Negative); Blood,Urine Small (Negative); Clarity,Urine Clear (Clear); Color,Urine Yellow (Yellow); Glucose,Urine (UA) Normal (Normal); Ketones,Urine Negative (Negative); Leukocyte Esterase,Urine Negative (Negative); Nitrite,Urine Negative (Negative); PH,Urine 7.5 pH Units (5.0-8.0); Protein,Urine 30 mg/dL (Neg-Trace); Specific Gravity,Urine 1.016 (1.010-1.025); Urobilinogen,Urine Normal (Normal)
[2019-04-16 12:30] LABS: Bacteria,Urine None Seen per hpf (None-Few); Hyaline Casts,Urine None Seen per lpf (None-Few); Squamous Epithelial Cell,Urine Many per lpf (None-Few); WBC,Urine 0-3 per hpf (0-3)
--- NOTE | 2019-04-16 12:30 | Emergency Department Note ---
Disposition Clinical Impression: Retroperitoneal hemorrhage Hypotension Qualifiers: Hypotension type: hypotension due to hypovolemia Qualified Code(s): I95.89 - Other hypotension; E86.1 - Hypovolemia Disposition: Admitted As Inpatient Condition: Critical Time of Disposition: 14:12 General Adult HPI - General Chief complaint: ED Abdominal Pain Stated complaint: AMS Time Seen by Provider: 04/16/19 11:32 Source: patient, family, EMS Mode of arrival: EMS Limitations: no limitations Nursing Notes Reviewed: Yes Vital Signs Reviewed: Yes - History of Present Illness HPI Narrative: 78M with Pmhx of AAA repair approx five years ago that had a sudden onset of left lower back pain starting today around [id number]. He was in the shower and came out and sat down on the couch and then according to , he stopped answering her and slumped to one side. Pt initially presented with eyes open but not responding to questions, within five minutes of arrival he knew his name, , and that he was in pain. Pt looks pale and is cool to the touch. Pt also reports that he had this pain last week that lasted for approx 15 minutes. Pain Scale: 10 - Related Data Home Medications Medication Instructions Recorded Confirmed Garlic 1,000 mg PO QPM 11/17/15 11/15/18 Allopurinol [Zyloprim] 300 mg PO QPM 04/03/17 11/15/18 Levothyroxine [Synthroid] 75 mcg PO DAILY 04/03/17 11/15/18 Ranitidine HCl [Acid Casting House Laborer] 150 mg PO BID 06/25/17 11/15/18 dilTIAZem HCl [Diltiazem HCl] 120 mg PO QPM 06/25/17 11/15/18 Loratadine [Allergy Relief] 10 mg PO DAILY 10/27/18 11/15/18 Carvedilol 3.125 mg PO BID 10/28/18 11/15/18 [place]-3/Dha/Epa/Fish Oil [Cvs Fish 1 cap PO QPM 10/28/18 11/15/18 Oil 1,000 mg Softgel] Previous Rx's Medication Instructions Recorded Clopidogrel [Plavix] 75 mg PO DAILY #30 tablet 04/05/17 Albuterol Sulfate [Proventil 2 puff IH Q6HR PRN #1 hfa.aer.ad 11/01/18 Inhaler] Omeprazole [PriLOSEC] 20 mg PO BIDAC #60 capsule. 11/17/18 Allergies Allergy/AdvReac Type Severity Reaction Status Date / Time No Known Allergies Allergy Verified 11/15/18 16:54 Review of Systems: In addition to that documented in the HPI above, the additional ROS was obtained: Constitutional: Denies fevers or chills Eyes: Denies vision changes ENMT: Denies sore throat CV: Denies chest pain Resp: Denies SOB GI: Denies vomiting or diarrhea : Denies painful urination MSK: Reports left sided back pain Skin: Denies new rashes Neuro: Denies new numbness or tingling or weakness Endocrine: Denies unexpected weight loss Heme: Reports being on Eliquis since 02/27/19 for Afib Past Medical History - Past Medical History Attestation: Yes The following information was validated with the patient. Medical history: Reports: atrial fibrillation, COPD, hyperlipidemia, hypertension, thyroid disease Surgical history: Reports: orthopedic, other, other Psychiatric history: Reports: no psych history - Social History Smoking Status: Never smoker Smokeless Tobacco Status: No Alcohol use: Reports: none Drug use: Reports: none Physical Exam General: A&O x 3 - person, place, time. No acute distress. Well developed, well nourished. Head: atraumatic, normocephalic. ENT: No conjunctival injection, no scleral icterus, conjunctival pallor. PERRLA. EOMI. Oropharynx non- erythematous. mucous membranes moist. Neuro: No focal deficits, no speech deficit, no facial droop, mentating well. BUE/BLE Str 5/5. Pulm: Lungs CTAB A/P. No wheezes, rales, ronchi. Cardio: RRR no m/r/g. Chest not tender to palpation. Abd: Soft, non-distended. Normoactive bowel sounds. Tender to palpation in RLQ, LLQ, suprapubic. No guarding. Non rigid. Extremities: Radial pulses 2+ daquan, dorsalis pedis/posterior tibialis 2+ daquan. No LE edema. No cyanosis, clubbing. Skin: warm, dry, intact. No rashes. Pale. Psych: Appropriate mood and affect. Answers questions appropriately. Cooperative with exam. - General Limitations: no limitations General appearance: alert, in distress Course Vital Signs Temperature 98.2 F 04/16/19 11:37 Pulse Rate 104 04/16/19 11:37 Respiratory Rate 19 04/16/19 11:37 Blood Pressure 73/32 04/16/19 11:37 O2 Sat by Pulse Oximetry 92 04/16/19 11:37 Temperature 98.2 F 04/16/19 11:37 Pulse Rate 81 04/16/19 14:05 Respiratory Rate 16 04/16/19 14:05 Blood Pressure 115/67 04/16/19 14:05 O2 Sat by Pulse Oximetry 100 04/16/19 14:05 Oxygen Delivery Oxygen Delivery Room Air Medical Decision Making - MDM Narrative Medical decision making narrative: 78-year-old female with past medical history of previous AAA repair in 2013 with endovascular leak repair in 2013 at [facility]. Previous endovascular leak was in the fifth lumbar artery. Patient presents with hypotension, altered mental status, syncopal event prior to arrival. We are immediately concerned for a rupture of his abdominal aorta. Patient was taken emergently to CAT scan for a CTA dissection study. CT scan did not show a rupture or dissection, however there was some concern that there was an endovascular leak in the area where he had a previous endov ascular leak. He was evaluated at bedside by Dr. Fishman, vascular surgeon, who states that his leak is not a surgical problem and that when the patient is more stable he will need to go to interventional radiology for definitive management. Patient was given 2 L of fluid, 2 units of trauma blood, blood pressures remained soft until we gave 1 g of transient ischemic acid, as well as PCC. Patient was found to have a significant retroperitoneal hematoma, which was thought to be the cause of his left-sided back pain. He was further evaluated at bedside by Dr. Jimenez, the client development director, who requested a central line. Right-sided IJ was placed under ultrasound guidance please see procedure note for full details. Dr. Jimenez was concerned that the patient could have a GI bleed given his history of ulcers, so the client development director team made the decision to intubate the patient. The patient was emergenty intubated by Dr. Willie Fried, please see his note for procedure note. Pt's blood pressures had improved with a MAP in the 90's before he was sent to the ICU. Family was kept informed of ch anges as they occurred, and patient remained awake and alert until he was placed under sedation for the intubation. - Medical Records Medical records reviewed: Yes I reviewed the patient's medical records. - Lab Data Lab results reviewed: Yes I reviewed the patient's lab results. Result diagrams: 04/16/19 13:12 04/16/19 11:35 Lab Results 04/16/19 04/16/19 04/16/19 Range/Units 11:35 11:35 11:35 WBC 10.9 (4.3-11.1) K/mcL RBC 3.45 L (4.19-5.50) M/mcL Hgb 11.3 L (12.9-16.9) g/dL Hct 35.4 L (37.5-50.1) % MCV 102.6 H (83.0-100.0) fL MCH 32.8 (28.0-33.3) pg MCHC 31.9 (31.6-35.5) g/dL RDW 13.3 (11.5-14.5) % Plt Count 178 (140-400) K/mcL MPV 11.2 (9.4-12.4) fL Seg Neutrophils % 66.0 % Band Neutrophils % 6.0 H (0-4) % Lymphocytes % 21.0 % Monocytes % 6.0 % Eosinophils % 1.0 % Neutrophils # 7.9 (1.6-8.9) K/mcL Lymphocytes # 2.3 (0.6-4.6) K/mcL Monocytes # 0.7 (0.0-1.3) K/mcL Eosinophils # 0.1 (0.0-0.6) K/mcL Reactive Lymphocytes Present A (Not Present) Platelet Estimate Normal (Normal) PT 16.1 H (9.4-12.1) Seconds INR 1.4 APTT 27.7 (26.0-36.0) Seconds VBG pH (7.32-7.42) pH Units VBG pCO2 (41-51) mmHg VBG pO2 (25-50) mmHg VBG HCO3 (21-27) mEq/L Sodium 137 (136-145) mEq/L Potassium 3.9 (3.5-5.1) mEq/L Chloride 102 (98-107) mEq/L Carbon Dioxide 20 L (23-29) mEq/L BUN 14 (8-23) mg/dL Creatinine 1.07 (0.70-1.30) mg/dL Est GFR ( Amer) > 60 (> 60) Est GFR (Non-Af Amer) > 60 (> 60) BUN/Creatinine Ratio 13 (6-26) Glucose 263 H (70-105) mg/dL Calculated Osmolality 294 (280-300) Lactic Acid (0.5-2.2) mmol/L Calcium 8.3 L (8.6-10.3) mg/dL Total Bilirubin 0.7 (0.3-1.0) mg/dL Direct Bilirubin 0.1 (0.0-0.2) mg/dL Indirect Bilirubin 0.6 (0.0-1.2) mg/dL AST 14 (13-39) Units/L ALT 10 (7-52) Units/L Alkaline Phosphatase 52 (34-104) Units/L Troponin I < 0.03 (< 0.04) ng/mL Serum Total Protein 6.3 L (6.4-8.9) g/dL Albumin 4.0 (3.5-5.7) g/dL Globulin 2.3 L (2.4-3.5) g/dL Albumin/Globulin Ratio 1.7 (1.1-2.2) Amylase 49 (29-103) Units/L Lipase 22 (11-82) Units/L Urine Color (Yellow) Urine Clarity (Clear) Urine pH (5.0-8.0) pH Units Ur Specific [place] (1.010-1.025) Urine Protein (Neg-Trace) mg/dL Urine Glucose (UA) (Normal) mg/dL Urine Ketones (Negative) mg/dL Urine Blood (Negative) Urine Nitrite (Negative) Urine Bilirubin (Negative) Urine Urobilinogen (Normal) mg/dL Ur Leukocyte Esterase (Negative) Urine Microscopic RBC (0-3) per hpf Urine Microscopic WBC (0-3) per hpf Ur Squamous Epith Cells (None-Few) per lpf Urine Bacteria (None-Few) per hpf Hyaline Casts (None-Few) per lpf Ur Culture Indicated? (NO) Stool Occult Bld Scrn (Negative) Blood Type Antibody Screen Crossmatch 04/16/19 04/16/19 04/16/19 Range/Units 11:37 12:01 12:01 WBC (4.3-11.1) K/mcL RBC (4.19-5.50) M/mcL Hgb (12.9-16.9) g/dL Hct (37.5-50.1) % MCV (83.0-100.0) fL MCH (28.0-33.3) pg MCHC (31.6-35.5) g/dL RDW (11.5-14.5) % Plt Count (140-400) K/mcL MPV (9.4-12.4) fL Seg Neutrophils % % Band Neutrophils % (0-4) % Lymphocytes % % Monocytes % % Eosinophils % % Neutrophils # (1.6-8.9) K/mcL Lymphocytes # (0.6-4.6) K/mcL Monocytes # (0.0-1.3) K/mcL Eosinophils # (0.0-0.6) K/mcL Reactive Lymphocytes (Not Present) Platelet Estimate (Normal) PT (9.4-12.1) Seconds INR APTT (26.0-36.0) Seconds VBG pH 7.41 (7.32-7.42) pH Units VBG pCO2 30 L (41-51) mmHg VBG pO2 92 H (25-50) mmHg VBG HCO3 19 L (21-27) mEq/L Sodium (136-145) mEq/L Potassium (3.5-5.1) mEq/L Chloride (98-107) mEq/L Carbon Dioxide (23-29) mEq/L BUN (8-23) mg/dL Creatinine (0.70-1.30) mg/dL Est GFR ( Amer) (> 60) Est GFR (Non-Af Amer) (> 60) BUN/Creatinine Ratio (6-26) Glucose (70-105) mg/dL Calculated Osmolality (280-300) Lactic Acid 4.4 H* (0.5-2.2) mmol/L Calcium (8.6-10.3) mg/dL Total Bilirubin (0.3-1.0) mg/dL Direct Bilirubin (0.0-0.2) mg/dL Indirect Bilirubin (0.0-1.2) mg/dL AST (13-39) Units/L ALT (7-52) Units/L Alkaline Phosphatase (34-104) Units/L Troponin I (< 0.04) ng/mL Serum Total Protein (6.4-8.9) g/dL Albumin (3.5-5.7) g/dL Globulin (2.4-3.5) g/dL Albumin/Globulin Ratio (1.1-2.2) Amylase (29-103) Units/L Lipase (11-82) Units/L Urine Color (Yellow) Urine Clarity (Clear) Urine pH (5.0-8.0) pH Units Ur Specific [place] (1.010-1.025) Urine Protein (Neg-Trace) mg/dL Urine Glucose (UA) (Normal) mg/dL Urine Ketones (Negative) mg/dL Urine Blood (Negative) Urine Nitrite (Negative) Urine Bilirubin (Negative) Urine Urobilinogen (Normal) mg/dL Ur Leukocyte Esterase (Negative) Urine Microscopic RBC (0-3) per hpf Urine Microscopic WBC (0-3) per hpf Ur Squamous Epith Cells (None-Few) per lpf Urine Bacteria (None-Few) per hpf Hyaline Casts (None-Few) per lpf Ur Culture Indicated? (NO) Stool Occult Bld Scrn (Negative) Blood Type O POSITIVE Antibody Screen POSITIVE Crossmatch See Detail 04/16/19 04/16/19 04/16/19 Range/Units 12:04 12:08 12:20 WBC (4.3-11.1) K/mcL RBC (4.19-5.50) M/mcL Hgb (12.9-16.9) g/dL Hct (37.5-50.1) % MCV (83.0-100.0) fL MCH (28.0-33.3) pg MCHC (31.6-35.5) g/dL RDW (11.5-14.5) % Plt Count (140-400) K/mcL MPV (9.4-12.4) fL Seg Neutrophils % % Band Neutrophils % (0-4) % Lymphocytes % % Monocytes % % Eosinophils % % Neutrophils # (1.6-8.9) K/mcL Lymphocytes # (0.6-4.6) K/mcL Monocytes # (0.0-1.3) K/mcL Eosinophils # (0.0-0.6) K/mcL Reactive Lymphocytes (Not Present) Platelet Estimate (Normal) PT (9.4-12.1) Seconds INR APTT (26.0-36.0) Seconds VBG pH 7.33 (7.32-7.42) pH Units VBG pCO2 36 L (41-51) mmHg VBG pO2 129 H (25-50) mmHg VBG HCO3 19 L (21-27) mEq/L Sodium (136-145) mEq/L Potassium (3.5-5.1) mEq/L Chloride (98-107) mEq/L Carbon Dioxide (23-29) mEq/L BUN (8-23) mg/dL Creatinine (0.70-1.30) mg/dL Est GFR ( Amer) (> 60) Est GFR (Non-Af Amer) (> 60) BUN/Creatinine Ratio (6-26) Glucose (70-105) mg/dL Calculated Osmolality (280-300) Lactic Acid (0.5-2.2) mmol/L Calcium (8.6-10.3) mg/dL Total Bilirubin (0.3-1.0) mg/dL Direct Bilirubin (0.0-0.2) mg/dL Indirect Bilirubin (0.0-1.2) mg/dL AST (13-39) Units/L ALT (7-52) Units/L Alkaline Phosphatase (34-104) Units/L Troponin I (< 0.04) ng/mL Serum Total Protein (6.4-8.9) g/dL Albumin (3.5-5.7) g/dL Globulin (2.4-3.5) g/dL Albumin/Globulin Ratio (1.1-2.2) Amylase (29-103) Units/L Lipase (11-82) Units/L Urine Color Yellow (Yellow) Urine Clarity Clear (Clear) Urine pH 7.5 (5.0-8.0) pH Units Ur Specific [place] 1.016 (1.010-1.025) Urine Protein 30 H (Neg-Trace) mg/dL Urine Glucose (UA) Normal (Normal) mg/dL Urine Ketones Negative (Negative) mg/dL Urine Blood Small H (Negative) Urine Nitrite Negative (Negative) Urine Bilirubin Negative (Negative) Urine Urobilinogen Normal (Normal) mg/dL Ur Leukocyte Esterase Negative (Negative) Urine Microscopic RBC 5-15 H (0-3) per hpf Urine Microscopic WBC 0-3 (0-3) per hpf Ur Squamous Epith Cells Many H (None-Few) per lpf Urine Bacteria None Seen (None-Few) per hpf Hyaline Casts None Seen (None-Few) per lpf Ur Culture Indicated? NO (NO) Stool Occult Bld Scrn Negative (Negative) Blood Type Antibody Screen Crossmatch 04/16/19 Range/Units 13:12 WBC (4.3-11.1) K/mcL RBC (4.19-5.50) M/mcL Hgb 8.9 L D (12.9-16.9) g/dL Hct 28.2 L (37.5-50.1) % MCV (83.0-100.0) fL MCH (28.0-33.3) pg MCHC (31.6-35.5) g/dL RDW (11.5-14.5) % Plt Count (140-400) K/mcL MPV (9.4-12.4) fL Seg Neutrophils % % Band Neutrophils % (0-4) % Lymphocytes % % Monocytes % % Eosinophils % % Neutrophils # (1.6-8.9) K/mcL Lymphocytes # (0.6-4.6) K/mcL Monocytes # (0.0-1.3) K/mcL Eosinophils # (0.0-0.6) K/mcL Reactive Lymphocytes (Not Present) Platelet Estimate (Normal) PT (9.4-12.1) Seconds INR APTT (26.0-36.0) Seconds VBG pH (7.32-7.42) pH Units VBG pCO2 (41-51) mmHg VBG pO2 (25-50) mmHg VBG HCO3 (21-27) mEq/L Sodium (136-145) mEq/L Potassium (3.5-5.1) mEq/L Chloride (98-107) mEq/L Carbon Dioxide (23-29) mEq/L BUN (8-23) mg/dL Creatinine (0.70-1.30) mg/dL Est GFR ( Amer) (> 60) Est GFR (Non-Af Amer) (> 60) BUN/Creatinine Ratio (6-26) Glucose (70-105) mg/dL Calculated Osmolality (280-300) Lactic Acid (0.5-2.2) mmol/L Calcium (8.6-10.3) mg/dL Total Bilirubin (0.3-1.0) mg/dL Direct Bilirubin (0.0-0.2) mg/dL Indirect Bilirubin (0.0-1.2) mg/dL AST (13-39) Units/L ALT (7-52) Units/L Alkaline Phosphatase (34-104) Units/L Troponin I (< 0.04) ng/mL Serum Total Protein (6.4-8.9) g/dL Albumin (3.5-5.7) g/dL Globulin (2.4-3.5) g/dL Albumin/Globulin Ratio (1.1-2.2) Amylase (29-103) Units/L Lipase (11-82) Units/L Urine Color (Yellow) Urine Clarity (Clear) Urine pH (5.0-8.0) pH Units Ur Specific [place] (1.010-1.025) Urine Protein (Neg-Trace) mg/dL Urine Glucose (UA) (Normal) mg/dL Urine Ketones (Negative) mg/dL Urine Blood (Negative) Urine Nitrite (Negative) Urine Bilirubin (Negative) Urine Urobilinogen (Normal) mg/dL Ur Leukocyte Esterase (Negative) Urine Microscopic RBC (0-3) per hpf Urine Microscopic WBC (0-3) per hpf Ur Squamous Epith Cells (None-Few) per lpf Urine Bacteria (None-Few) per hpf Hyaline Casts (None-Few) per lpf Ur Culture Indicated? (NO) Stool Occult Bld Scrn (Negative) Blood Type Antibody Screen Crossmatch - Radiology Data Radiology results reviewed: Yes I reviewed the patient's radiology results. CT Dissection 04/16/19 11:33 IMPRESSION: 1. Status post endovascular repair of an abdominal aortic aneurysm with a bifurcated aorto bi-iliac endograft with new development of an endoleak and increase in size of the aneurysm sac now measuring 9 x 9 cm. There is also a new large left retroperitoneal hemorrhage which displaces the left kidney and likely is secondary to rupture of the aneurysm sac. These findings were discussed with Mariposa Bedolla at 12:25 p.m. 04/16/2019. 2. No active pulmonary disease. D/ / Rigoberto Patel MD / Rigoberto Patel MD Interpreting Provider: Rigoberto Patel MD Chest X-Ray 04/16/19 14:00 IMPRESSION: 1. Right jugular central venous line placement with tip in the superior vena cava and no immediate complications. 2. Low lung volumes with mild vascular congestion. D/ / Rigoberto Patel MD / Rigoberto Patel MD Interpreting Provider: Rigoberto Patel MD
[2019-04-16] MEDS ORDERED: HUM PROTHROMBIN CPLX IVPB ONE (13:00)
[2019-04-16] MEDS ORDERED: WATER FOR INJ IVPB ONE (13:00)
[2019-04-16] MEDS ORDERED: [UNRECOGNIZED DRUG - OTHER] IVPB ONE (13:00)
[2019-04-16 13:46] LABS: Hematocrit 28.2 % (37.5-50.1)
[2019-04-16] MEDS ORDERED: Ondansetron 4 MG/2 ML VIAL ONE ×2 (13:46→15:25)
[2019-04-16 13:48] LABS: Hemoglobin 8.9 g/dL (12.9-16.9)
[2019-04-16] MEDS ORDERED: Pantoprazole 40 MG VIAL IVP ONE (13:50)
[2019-04-16] MEDS ORDERED: methylPREDNISolone 125 MG/2 ML VIAL IVP ONE (13:52)
[2019-04-16] MEDS ORDERED: 0.9 % Sodium Chloride 500 ML IVC ONE (13:59)
[2019-04-16] MEDS ORDERED: Norepinephrine 4 MG in 0.9 % Sodium Chloride 250 ML IVC SCH (14:00)
--- NOTE | 2019-04-16 14:05 | Pulmonology History & Physical ---
Date of Encounter: 04/16/19 Time of Encounter: 14:04 History of Present Illness Chief complaint: Back Pain HPI: Mr. 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 According to patient's he was in the shower and came out to sit down on the couch when he stopped answering questions and slumped to one side. History of present illness difficult to obtain due to patient's acute nature. In ED patient appeared pale and diaphoretic with lower abdominal tenderness. A CT dissection was performed showing status post endovascular repair of an abdominal aortic aneurysm with a bifurcated aorto bi-iliac endograft with new development of an endoleak and increase in size of the aneurysm sac now measuring 9 x 9 cm. There is also a new large left retroperitoneal hemorrhage which displaces the left kidney and likely is secondary to rupture of the aneurysm sac. On initial presentation patient with a H&H of 11.3 and 35.4 which dropped to 8.9 and 28.2 in slightly less than 2 hours. Past Med Surg Social Fam HX - Past Medical History Medical history: atrial fibrillation, COPD, hyperlipidemia, hypertension, thyroid disease Additional medical history: gout Psychiatric history: no psych history - Past Surgical History Surgical History: orthopedic, other, other Additional surgical history: AAA, left ear surgery,RTK, EGD 2017 - Social History Smoking Status: Never smoker Smokeless Tobacco Status: No Alcohol use: none Drug use: none - Family History Father Family Member Ethnicity: Non- Living Status: Hx Family Cancer: Yes (Multiple myeloma) Mother Family Member Ethnicity: Non- Living Status: Hx Family Endocrine Disorder: Yes (Liver disease) Brother Family Member Ethnicity: Non- Living Status: Hx Family Cardiac Disorders: Yes (HD) Hx Family Endocrine Disorder: Yes (DM) Sister Family Member Ethnicity: Non- Living Status: Still Living Medications and Allergies Garlic 1,000 mg PO QPM 11/17/15 [History] Allopurinol [Zyloprim] 300 mg PO QPM 04/03/17 [History] Levothyroxine [Synthroid] 75 mcg PO DAILY 04/03/17 [History] Clopidogrel [Plavix] 75 mg PO DAILY #30 tablet 04/05/17 [Rx] Ranitidine HCl [Acid Hopper Operator] 150 mg PO BID 06/25/17 [History] dilTIAZem HCl [Diltiazem HCl] 120 mg PO QPM 06/25/17 [History] Loratadine [Allergy Relief] 10 mg PO DAILY 10/27/18 [History] Carvedilol 3.125 mg PO BID 10/28/18 [History] [place]-3/Dha/Epa/Fish Oil [Cvs Fish Oil 1,000 mg Softgel] 1 cap PO QPM 10/28/18 [History] Albuterol Sulfate [Proventil Inhaler] 2 puff IH Q6HR PRN #1 hfa.aer.ad 11/01/18 [Rx] Omeprazole [PriLOSEC] 20 mg PO BIDAC #60 capsule.dr 11/17/18 [Rx] Allergy/AdvReac Type Severity Reaction Status Date / Time No Known Allergies Allergy Verified 11/15/18 16:54 All Systems: The remainder of the systems were reviewed and are negative Physical Examination Vital Signs: Vital Signs, Last 4 Hours Temp Pulse Resp BP Pulse Ox 04/16/19 13:59 83 16 101/55 100 04/16/19 13:19 88 21 87/60 100 04/16/19 12:46 94 17 108/58 95 04/16/19 12:44 95 19 97/60 100 04/16/19 12:35 96 18 94/70 100 04/16/19 12:29 92 14 94/46 100 04/16/19 12:20 91 18 62/40 100 04/16/19 12:02 97 18 118/66 95 04/16/19 11:55 94 18 104/68 97 04/16/19 11:50 93 19 112/66 97 04/16/19 11:47 90 18 108/75 96 04/16/19 11:37 98.2 F 104 19 73/32 92 Results - Laboratory Findings CBC and BMP: 04/16/19 13:12 04/16/19 11:35 PT/INR, D-dimer PT 16.1 Seconds (9.4-12.1) H 04/16/19 11:35 Abnormal lab findings: Abnormal lab results RBC 3.45 M/mcL (4.19-5.50) L 04/16/19 11:35 Hgb 8.9 g/dL (12.9-16.9) L D 04/16/19 13:12 Hct 28.2 % (37.5-50.1) L 04/16/19 13:12 MCV 102.6 fL (83.0-100.0) H 04/16/19 11:35 Band Neutrophils % 6.0 % (0-4) H 04/16/19 11:35 Reactive Lymphocytes Present (Not Present) A 04/16/19 11:35 PT 16.1 Seconds (9.4-12.1) H 04/16/19 11:35 VBG pCO2 36 mmHg (41-51) L 04/16/19 12:04 VBG pO2 129 mmHg (25-50) H 04/16/19 12:04 VBG HCO3 19 mEq/L (21-27) L 04/16/19 12:04 Carbon Dioxide 20 mEq/L (23-29) L 04/16/19 11:35 Glucose 263 mg/dL (70-105) H 04/16/19 11:35 Lactic Acid 4.4 mmol/L (0.5-2.2) H* 04/16/19 12:01 Calcium 8.3 mg/dL (8.6-10.3) L 04/16/19 11:35 Serum Total Protein 6.3 g/dL (6.4-8.9) L 04/16/19 11:35 Globulin 2.3 g/dL (2.4-3.5) L 04/16/19 11:35 Urine Protein 30 mg/dL (Neg-Trace) H 04/16/19 12:08 Urine Blood Small (Negative) H 04/16/19 12:08 Urine Microscopic RBC 5-15 per hpf (0-3) H 04/16/19 12:08 Ur Squamous Epith Cells Many per lpf (None-Few) H 04/16/19 12:08 Crossmatch See Detail 04/16/19 12:01
[2019-04-16] MEDS ORDERED: Octreotide 50 MCG/ML INJ IVP ONE (14:09)
[2019-04-16] MEDS ORDERED: *HR* FentaNYL (PF) 1,000 MCG/20 ML VIAL ONE (14:32)
[2019-04-16] MEDS ORDERED: *HR* Midazolam HCl 5 MG/5 ML VIAL IVP ONE ×3 (14:32→16:22)
[2019-04-16] MEDS ORDERED: *HR* Rocuronium Bromide 50 MG/5 ML VIAL IVP ONE (14:33)
[2019-04-16] MEDS ORDERED: *HR* Etomidate 40 MG/20 ML VIAL IVP ONE (14:33)
[2019-04-16] MEDS ORDERED: Albumin 25% 25gram/100mL 25 GM/100 ML IV.SOLN IVPB ONE (14:43)
[2019-04-16] MEDS ORDERED: Famotidine 20 MG/2 ML VIAL IVP ONE (14:45)
[2019-04-16] MEDS ORDERED: Dexmedetomidine HCl 400 MCG/100 ML MLS IVC SCH (14:45)
[2019-04-16 14:54] LABS: Hemoglobin 10.3 g/dL (12.9-16.9)
[2019-04-16] MEDS: FentaNYL (PF) 1,000 MCG in 0.9 % Sodium Chloride 80 ML IVC SCH (14:55)
[2019-04-16] MEDS ORDERED: Heparin 1,000 UNITS/500 mL 1,000 ML ONE (15:18)
--- NOTE | 2019-04-16 15:20 | Anesthesia Evaluation PreOp ---
Date of Encounter: 04/16/19 Time of Encounter: 15:14 - Past History Planned Operation: EMERGENCY Exploratory Lap re: AAA repair leak Cardiac History: HTN, Hyperlipidemia, Arrhythmia (AFib - Eliquis started approx 5 -6 weeks ago. Last Plavix 04/16/2019 @ 6-7a. NO Aspirin regimen), Other (CAD, PVDz) Pulmonary History: COPD, ROLY Dx (+ CPAP) SOFTWARE QUALITY TESTER History: Denies Any Significant HX Other Medical History: Thyroid Anesthesia History: No Prior Anesthetic Complications, Past Anesthesia (AAA repair, R-TKA) Alcohol Use: none Drug use: none Medications and Allergies Garlic 1,000 mg PO QPM 11/17/15 [History] Allopurinol [Zyloprim] 300 mg PO QPM 04/03/17 [History] Levothyroxine [Synthroid] 75 mcg PO DAILY 04/03/17 [History] Clopidogrel [Plavix] 75 mg PO DAILY #30 tablet 04/05/17 [Rx] Ranitidine HCl [Acid Linux Unix Administrator] 150 mg PO BID 06/25/17 [History] dilTIAZem HCl [Diltiazem HCl] 120 mg PO QPM 06/25/17 [History] Loratadine [Allergy Relief] 10 mg PO DAILY 10/27/18 [History] Carvedilol 3.125 mg PO BID 10/28/18 [History] [place]-3/Dha/Epa/Fish Oil [[facility] Fish Oil 1,000 mg Softgel] 1 cap PO QPM 10/28/18 [History] Albuterol Sulfate [Proventil Inhaler] 2 puff IH Q6HR PRN #1 hfa.aer.ad 11/01/18 [Rx] Omeprazole [PriLOSEC] 20 mg PO BIDAC #60 capsule.dr 11/17/18 [Rx] 3 Allergy/AdvReac Type Severity Reaction Status Date / Time No Known Allergies Allergy Verified 11/15/18 16:54 - Meds/Allergy Pre-op Review Medications Reviewed: Yes Allergies Reviewed: Yes Beta Blockers on Current Med List: Yes (Carvedilol) If Beta Blockers taken, Date/Time (Last Dose taken): 04/16/2019 @ 6-7am Anesthesia Results - Labs 04/16/19 16:38 04/16/19 16:38 Short CBC 04/16/19 04/16/19 04/16/19 Range/Units 14:48 13:12 11:35 WBC 10.9 (4.3-11.1) K/mcL Hgb 10.3 L 8.9 L D 11.3 L (12.9-16.9) g/dL Hct 32.0 L 28.2 L 35.4 L (37.5-50.1) % Plt Count 178 (140-400) K/mcL Neutrophils # 7.9 (1.6-8.9) K/mcL BMP 04/16/19 Range/Units 11:35 Sodium 137 (136-145) mEq/L Potassium 3.9 (3.5-5.1) mEq/L Chloride 102 (98-107) mEq/L Carbon Dioxide 20 L (23-29) mEq/L BUN 14 (8-23) mg/dL Creatinine 1.07 (0.70-1.30) mg/dL Glucose 263 H (70-105) mg/dL Calcium 8.3 L (8.6-10.3) mg/dL Cardiac Enzymes 04/16/19 Range/Units 11:35 Troponin I < 0.03 (< 0.04) ng/mL Liver Function 04/16/19 Range/Units 11:35 Total Bilirubin 0.7 (0.3-1.0) mg/dL Direct Bilirubin 0.1 (0.0-0.2) mg/dL AST 14 (13-39) Units/L ALT 10 (7-52) Units/L Alkaline Phosphatase 52 (34-104) Units/L Albumin 4.0 (3.5-5.7) g/dL Urine 04/16/19 Range/Units 12:08 Urine Color Yellow (Yellow) Urine Clarity Clear (Clear) Urine pH 7.5 (5.0-8.0) pH Units Ur Specific [place] 1.016 (1.010-1.025) Urine Protein 30 H (Neg-Trace) mg/dL Urine Glucose (UA) Normal (Normal) mg/dL - Imaging EKG: report reviewed (94bpm - Sinus rhythm Right bundle branch block Electronically Signed On 11-19-2018 15:39:04 EDT by Tammy Washington) Additional studies: ECHO 10/27/2018 EV/EV echocardiogram w enhance Impressions: LVEF 45-50%. Moderate concentric left ventricular hypertrophy. Mild left ventricular diastolic dysfunction. Normal right ventricular structure and function. No evidence of PFO with agitated saline contrast. No evidence of pulmonary hypertension. Left Ventricular Wall Motion: Rest Echo Findings The apex, apical inferior, mid inferior, basal inferior, apical anterior, mid anterior, basal anterior, apical septal, mid inferior septal, basal inferior septal, apical lateral, mid anterior lateral, basal anterior lateral, mid anterior septal, mid inferior lateral, basal anterior septal and basal inferior lateral hayes were hypokinetic. Findings: Study Quality * Technically sub-optimal due to body habitus. ECG Findings * Normal sinus rhythm. Left Ventricle * LVEF 45-50%. * Definity echo contrast was used. * There is no LV thrombus. * Moderate concentric left ventricular hypertrophy. * Mild left ventricular diastolic dysfunction. * Mild global left ventricular systolic dysfunction. Right Ventricle * Normal right ventricular structure and function. Left Atrium * Mildly dilated left atrium. Right Atrium * Normal right atrial size. Interatrial Septum * No evidence of PFO with agitated saline contrast. Aortic Valve * Trileaflet aortic valve. * No aortic regurgitation. * No aortic stenosis. * Mildly sclerotic aortic valve leaflets. Mitral Valve * Normal mitral valve structure. * No mitral regurgitation. * No mitral stenosis. Tricuspid Valve * Normal tricuspid valve structure. * Trace tricuspid regurgitation. * No tricuspid stenosis. * No evidence of pulmonary hypertension. Pulmonic Valve * Trace pulmonic regurgitation. Aorta * Normally sized aortic root. Pericardium * The pericardium appears normal. IVC * Normal IVC dimensions and inspiratory collapse. Pulmonary Artery * Pulmonary artery not well visualized. Impressions CT Dissection 04/16/19 11:33 IMPRESSION: 1. Status post endovascular repair of an abdominal aortic aneurysm with a bifurcated aorto bi-iliac endograft with new development of an endoleak and increase in size of the aneurysm sac now measuring 9 x 9 cm. There is also a new large left retroperitoneal hemorrhage which displaces the left kidney and likely is secondary to rupture of the aneurysm sac. These findings were discussed with Mariposa Bedolla at 12:25 p.m. 04/16/2019. 2. No active pulmonary disease. D/ / Rigoberto Patel MD / Rigoberto Patel MD Interpreting Provider: Rigoberto Patel MD Chest X-Ray 04/16/19 14:00 IMPRESSION: 1. Right jugular central venous line placement with tip in the superior vena cava and no immediate complications. 2. Low lung volumes with mild vascular congestion. D/ / Rigoberto Patel MD / Rigoberto Patel MD Interpreting Provider: Rigoberto Patel MD Laboratory Results Anesthesia Exam Vital Signs Temp Pulse Resp BP Pulse Ox 04/16/19 15:18 110 18 186/114 97 04/16/19 15:12 14 72/56 94 04/16/19 15:09 84 18 114/69 99 04/16/19 15:03 93 18 104/65 99 04/16/19 14:05 81 16 115/67 100 04/16/19 13:59 83 16 101/55 100 04/16/19 13:19 88 21 87/60 100 04/16/19 12:46 94 17 108/58 95 04/16/19 12:44 95 19 97/60 100 04/16/19 12:35 96 18 94/70 100 04/16/19 12:29 92 14 94/46 100 04/16/19 12:20 91 18 62/40 100 04/16/19 12:02 97 18 118/66 95 04/16/19 11:55 94 18 104/68 97 04/16/19 11:50 93 19 112/66 97 04/16/19 11:47 90 18 108/75 96 04/16/19 11:37 98.2 F 104 19 73/32 92 Intake and Output 04/15/19 04/16/19 04/16/19 23:59 07:59 15:59 Intake Total 1400 / 1400 Balance 1400 / 1400 Intake: Blood Product 1400 / 1400 Plasma Unit [id number] 700 / 700 Plasma Unit [id number] 350 / 350 Rbcs Leuko Poor As-1 Unit 350 / 350 [id number] Other: Weight 110.132 kg Blood Glucose* 283 Patient Weight 04/16/19 23:59 Weight 110.132 kg Height: 5'8" Weight: 242# BMI = 37 NPO (# of Hours): 12Noon. Pt ate Breakfast approx 7am - HEENT Pupil (Motor): Pupils equal, EOMI Mallampati: Intubated (7.0 ETT Placed by Emergency Dept. approx 1430) Oral Opening: Greater than 3 - SOFTWARE QUALITY TESTER LOC: Unable to assess (Pt intubated/sedated in Emergency Dept.) - Cardiac Rhythm: Irregular - Pulmonary Breath Sounds: bilateral Clear Respiratory Effort: Symmetrical Anesthesia Assess/Plan ASA Score: 5 (PT symptomatic & hypotensive in ED. Recv'd 3uPRBCs, 3L NS, 2 FFP, 1 Albumin in Emergency Dept prior to OR arrival.), E Level of consciousness: Cooperative, Oriented Anesthetic Plan: General Monitoring Plan: Standard Monitors, A-Line Recovery Plan: PACU Anes Supervising Prov Stmt: PT seen/evaluated in ED. Brief discussion w/ ED staff & Pt family prior to emergent arrival to OR#1. Brief explanation of Anesthesia procedures necessary for surgery. Family denies any prior Anesthestic problems/complications. No additional questions from PT family. - MD Fabian
--- NOTE | 2019-04-16 15:21 | Pulmonology Consult Note ---
<Eliseo Hartmann M - Last Filed: 04/16/19 15:48> Date of Encounter: 04/16/19 Medications and Allergies Garlic 1,000 mg PO QPM 11/17/15 [History] Allopurinol [Zyloprim] 300 mg PO QPM 04/03/17 [History] Levothyroxine [Synthroid] 75 mcg PO DAILY 04/03/17 [History] Clopidogrel [Plavix] 75 mg PO DAILY #30 tablet 04/05/17 [Rx] Ranitidine HCl [Acid Bariatric Surgeon] 150 mg PO BID 06/25/17 [History] dilTIAZem HCl [Diltiazem HCl] 120 mg PO QPM 06/25/17 [History] Loratadine [Allergy Relief] 10 mg PO DAILY 10/27/18 [History] Carvedilol 3.125 mg PO BID 10/28/18 [History] [place]-3/Dha/Epa/Fish Oil [[facility] Fish Oil 1,000 mg Softgel] 1 cap PO QPM 10/28/18 [History] Albuterol Sulfate [Proventil Inhaler] 2 puff IH Q6HR PRN #1 hfa.aer.ad 11/01/18 [Rx] Omeprazole [PriLOSEC] 20 mg PO BIDAC #60 capsule.dr 11/17/18 [Rx] Allergy/AdvReac Type Severity Reaction Status Date / Time No Known Allergies Allergy Verified 11/15/18 16:54 All Systems: The remainder of the systems were reviewed and are negative Physical Examination Vital Signs: Vital Signs, Last 4 Hours Pulse Resp BP Pulse Ox 04/16/19 15:42 18 150/136 97 04/16/19 15:28 110 18 187/105 97 04/16/19 15:18 110 18 186/114 97 04/16/19 15:12 14 72/56 94 04/16/19 15:09 84 18 114/69 99 04/16/19 15:03 93 18 104/65 99 04/16/19 14:05 81 16 115/67 100 04/16/19 13:59 83 16 101/55 100 04/16/19 13:19 88 21 87/60 100 04/16/19 12:46 94 17 108/58 95 04/16/19 12:44 95 19 97/60 100 09/04/19 12:35 96 18 94/70 100 04/16/19 12:29 92 14 94/46 100 04/16/19 12:20 91 18 62/40 100 04/16/19 12:02 97 18 118/66 95 04/16/19 11:55 94 18 104/68 97 04/16/19 11:50 93 19 112/66 97 Ventilator Settings Ventilator Settings: Ventilator Settings, Last 8 Hours Ventilator Tidal Volume 500 Setting Ventilator Tidal Volume 500 Setting Ventilator Tidal Volume 500 Setting Ventilator Respiratory Rate 16 Setting Ventilator Respiratory Rate 14 Setting Ventilator Respiratory Rate 14 Setting Actual Respiratory Rate 16 Actual Respiratory Rate 14 Positive End Expiratory 5 Pressure Positive End Expiratory 5 Pressure Positive End Expiratory 5 Pressure Peak Inspiratory Airway 24 Pressure Peak Inspiratory Airway 22 Pressure Results - Laboratory Findings CBC and BMP: 04/16/19 14:48 04/16/19 11:35 ABG ABG pH 7.28 pH Units (7.32-7.45) L 04/16/19 15:34 ABG pCO2 46 mmHg (35-45) H 04/16/19 15:34 ABG pO2 87 mmHg (85-104) 04/16/19 15:34 ABG O2 Saturation 95 % (95-98) 04/16/19 15:34 PT/INR, D-dimer PT 16.1 Seconds (9.4-12.1) H 04/16/19 11:35 Abnormal lab findings: Abnormal lab results RBC 3.45 M/mcL (4.19-5.50) L 04/16/19 11:35 Hgb 10.3 g/dL (12.9-16.9) L 04/16/19 14:48 Hct 32.0 % (37.5-50.1) L 04/16/19 14:48 MCV 102.6 fL (83.0-100.0) H 04/16/19 11:35 Band Neutrophils % 6.0 % (0-4) H 04/16/19 11:35 Reactive Lymphocytes Present (Not Present) A 04/16/19 11:35 PT 16.1 Seconds (9.4-12.1) H 04/16/19 11:35 ABG pH 7.28 pH Units (7.32-7.45) L 04/16/19 15:34 ABG pCO2 46 mmHg (35-45) H 04/16/19 15:34 ABG Base Excess -5 mEq/L (-2 to 3) L 04/16/19 15:34 VBG pCO2 36 mmHg (41-51) L 04/16/19 12:04 VBG pO2 129 mmHg (25-50) H 04/16/19 12:04 VBG HCO3 19 mEq/L (21-27) L 04/16/19 12:04 Carbon Dioxide 20 mEq/L (23-29) L 04/16/19 11:35 Glucose 263 mg/dL (70-105) H 04/16/19 11:35 Lactic Acid 4.4 mmol/L (0.5-2.2) H* 04/16/19 12:01 Calcium 8.3 mg/dL (8.6-10.3) L 04/16/19 11:35 Serum Total Protein 6.3 g/dL (6.4-8.9) L 04/16/19 11:35 Globulin 2.3 g/dL (2.4-3.5) L 04/16/19 11:35 Urine Protein 30 mg/dL (Neg-Trace) H 04/16/19 12:08 Urine Blood Small (Negative) H 04/16/19 12:08 Urine Microscopic RBC 5-15 per hpf (0-3) H 04/16/19 12:08 Ur Squamous Epith Cells Many per lpf (None-Few) H 04/16/19 12:08 Crossmatch See Detail 04/16/19 12:01 MTS Gel Crossmatch See Detail 04/16/19 12:01 - Microbiology Findings Microbiology Findings: Microbiology, Last 48 Hours 04/16/19 12:01 Blood Culture - Preliminary Peripheral Venipuncture Culture is incubating and being continuously mo nitored for growth. Final report to follow. 04/16/19 11:35 Blood Culture - Preliminary Peripheral Venipuncture Culture is incubating and being continuously monitored for growth. Final report to follow. - Clinical Findings Intake & Output: Intake & Output 04/15/19 04/16/19 04/16/19 23:59 07:59 15:59 Intake Total 1400 / 1400 Balance 1400 / 1400 Weight 110.132 kg Consult Discharge Plan - Plan Referrals: Kelvin Loya DO [Primary Care Provider] - - Attending Attestation I examined this patient and my medical decision-making was reviewed with the Resident Physician. I agree with the documented findings, disposition and treatment plan as described except to the extent set forth below. Patient seen and examined. I was called by the hospitalist to see the patient in the emergency room. Labs, radiology, chart personally reviewed. 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 Pulmonary: Acceptable oxygenation and ventilation. Patient was intubated and reviewed his ABG and change his vent setting. Cardiovascular: Hemorrhagic shock. Patient is being receiving blood transfusion and he has resuscitation. I have reviewed CAT scan of the abdomen with interventional radiologist and then discussed the case with Dr. Howe. Clinically patient becoming hypotensive and he is on pressors at this time. According to the interventional radiologist patient will need to be transferred to [place] and this was discussed with Dr. Howe and plan for surgery. This was communicated with ER physician. GI: Nutrition per dietary and GI prophylaxis per routine. Patient has history of peptic ulcer and unlikely this is the cause of these shock but he will need have endoscopy when he is more stable. Heme: DVT prophylaxis per routine. Patient has been on anticoagulation and unfortunately no reversal agent other than supportive care. ID: This is not infectious. Renal; urine out put and renal function reviewed. Renal impairment is a concern with the changes in his CT chest. Abdomen bedside ultrasound and patient is obese which is very difficult to visualize any vesicles. Endorcine: blood glucose is monitored Lines: all lines checked and no evidence of infections Skin: skin care to prevent pressure ulcers per nursing routine care Dispo: ICU Code: Full. Prognosis. Critical I spent 85 min of Critical Care time with this patient. It involved decision making of high complexity to assess, manipulate, and support vital organ system failure and/or to prevent further life threatening deterioration of the patient's condition. The time involved in the performance of separately reportable procedures was not counted toward critical care time. <Colby Pollock - Last Filed: 04/16/19 16:28> Date of Encounter: 04/16/19 Time of Encounter: 15:19 Assessment and Plan (1) Endoleak post (EVAR) endovascular aneurysm repair Current Visit: Yes Status: Acute PT taken to emergency surgery by Vascular Surgery Pt given 3 units of trauma blood and 2 units of platelets prior to surgery IJ central line placed prior to surgery -Postoperatively plan to be in ICU -Will follow surgical recommendations Qualifiers: Encounter type: initial encounter Qualified Code(s): T82.330A - Leakage of aortic (bifurcation) graft (replacement), initial encounter (2) Hemorrhagic shock Current Visit: Yes Status: Acute Pt with BP of 73/32 on presentation with HR of 104 Pt was pale and diaphoretic CT dissection was performed showing status post endovascular repair of an abdominal aortic aneurysm with a bifurcated aorto bi-iliac endograft with new development of an endoleak and increase in size of the aneurysm sac now measuring 9 x 9 cm There was also a retroperitoneal hemorrhage measuring at least 8 x 11 x 24 cm. -Pt taken for emergent surgery after Central Line was placed and pt was intubated in ED -Given Levophed, 3 units of PRBC, 2 units of platelets, and 3.5 L of NS prior to surgery -Will reassess following surgery. (3) Nontraumatic retroperitoneal hematoma Current Visit: Yes Status: Acute Most likely due to pts Aortic Leak -Postoperatively will be admitted to ICU plan to follow surgical recommendations (4) Essential hypertension Current Visit: No Status: Chronic Postoperatively will manage medically depending on readings. -Place Arterial line if not done preoperatively. History of Present Illness Consult date: 04/16/19 Chief complaint: Back pain History of present illness: Mr. 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 According to patient's he was in the shower and came out to sit down on the couch when he stopped answering questions and slumped to one side. History of present illness difficult to obtain due to patient's acute nature. Pt had AAA repair in 2012 at [place] and a revision was done in 2013 at an outside facility. In ED patient appeared pale and diaphoretic with lower abdominal tenderness. Initial vital signs with a pulse of 104, respiratory rate of 19, blood pressure 73/32, saturating at 92% on room air. A CT dissection was performed showing s tatus post endovascular repair of an abdominal aortic aneurysm with a bifurcated aorto bi-iliac endograft with new development of an endoleak and increase in size of the aneurysm sac now measuring 9 x 9 cm. There is also a new large left retroperitoneal hemorrhage which displaces the left kidney and likely is secondary to rupture of the aneurysm sac. On initial presentation patient with a H&H of 11.3 and 35.4 which dropped to 8.9 and 28.2 in slightly less than 2 hours. 3 units of PRBs and 2 units of platelets given in the ED prior to surgery with H&H up to 10.3 and 32.0. Pt became unstable and intubation was performed as welle as central line placed post-procedure CXR shows low lung volumes with mild vascular congestion. Pt taken from the ED to the OR for emergent surgery. Past Med Surg Social Fam HX - Past Medical History Medical history: atrial fibrillation, COPD, hyperlipidemia, hypertension, thyroid disease Additional medical history: gout Psychiatric history: no psych history - Past Surgical History Surgical History: orthopedic, other, other Additional surgical history: AAA, left ear surgery,RTK, EGD 2016 - Social History Smoking Status: Never smoker Smokeless Tobacco Status: No Alcohol use: none Drug use: none - Family History Father Family Member Ethnicity: Non- Living Status: Hx Family Cancer: Yes (Multiple myeloma) Mother Family Member Ethnicity: Non- Living Status: Hx Family Endocrine Disorder: Yes (Liver disease) Brother Family Member Ethnicity: Non- Living Status: Hx Family Cardiac Disorders: Yes (HD) Hx Family Endocrine Disorder: Yes (DM) Sister Family Member Ethnicity: Non- Living Status: Still Living ROS unobtainable: due to endotracheal tube All Systems: The remainder of the systems were reviewed and are negative Physical Examination Vital Signs: Vital Signs, Last 4 Hours Temp Pulse Resp BP Pulse Ox 04/16/19 15:12 14 72/56 94 04/16/19 15:09 84 18 114/69 99 04/16/19 15:03 93 18 104/65 99 04/16/19 14:05 81 16 115/67 100 04/16/19 13:59 83 16 101/55 04/16/19 13:19 88 21 87/60 100 04/16/19 12:46 94 17 108/58 95 04/16/19 12:44 95 19 97/60 100 04/16/19 12:35 96 18 94/70 100 04/16/19 12:29 92 14 94/46 100 04/16/19 12:20 91 18 62/40 100 04/16/19 12:02 97 18 118/66 95 04/16/19 11:55 94 18 104/68 97 04/16/19 11:50 93 19 112/66 97 04/16/19 11:47 90 18 108/75 96 04/16/19 11:37 98.2 F 104 19 73/32 92 General appearance: other (Intubated pt.) Eyes: nonicteric ENT: other (ET tube in place) Effort: normal Auscultation: bilateral: clear Cardiovascular: other (Sinus Tachycardia) Gastrointestinal: normoactive bowel sounds, tender Integumentary: other (Pale diaphoretic male) Extremities: no edema Musculoskeletal: no deformities unable to assess due to mental status Ventilator Settings Ventilator Settings: Ventilator Settings, Last 8 Hours Ventilator Tidal Volume 500 Setting Ventilator Respiratory Rate 14 Setting Actual Respiratory Rate 14 Positive End Expiratory 5 Pressure Peak Inspiratory Airway 22 Pressure Results - Laboratory Findings CBC and BMP: 04/16/19 14:48 04/16/19 11:35 PT/INR, D-dimer PT 16.1 Seconds (9.4-12.1) H 04/16/19 11:35 Abnormal lab findings: Abnormal lab results RBC 3.45 M/mcL (4.19-5.50) L 04/16/19 11:35 Hgb 10.3 g/dL (12.9-16.9) L 04/16/19 14:48 Hct 32.0 % (37.5-50.1) L 04/16/19 14:48 MCV 102.6 fL (83.0-100.0) H 04/16/19 11:35 Band Neutrophils % 6.0 % (0-4) H 04/16/19 11:35 Reactive Lymphocytes Present (Not Present) A 04/16/19 11:35 PT 16.1 Seconds (9.4-12.1) H 04/16/19 11:35 VBG pCO2 36 mmHg (41-51) L 04/16/19 12:04 VBG pO2 129 mmHg (25-50) H 04/16/19 12:04 VBG HCO3 19 mEq/L (21-27) L 04/16/19 12:04 Carbon Dioxide 20 mEq/L (23-29) L 04/16/19 11:35 Glucose 263 mg/dL (70-105) H 04/16/19 11:35 Lactic Acid 4.4 mmol/L (0.5-2.2) H* 04/16/19 12:01 Calcium 8.3 mg/dL (8.6-10.3) L 04/16/19 11:35 Serum Total Protein 6.3 g/dL (6.4-8.9) L 04/16/19 11:35 Globulin 2.3 g/dL (2.4-3.5) L 04/16/19 11:35 Urine Protein 30 mg/dL (Neg-Trace) H 04/16/19 12:08 Urine Blood Small (Negative) H 04/16/19 12:08 Urine Microscopic RBC 5-15 per hpf (0-3) H 04/16/19 12:08 Ur Squamous Epith Cells Many per lpf (None-Few) H 04/16/19 12:08 Crossmatch See Detail 04/16/19 12:01 MTS Gel Crossmatch See Detail 04/16/19 12:01 - Microbiology Findings Microbiology Findings: Microbiology, Last 48 Hours 04/16/19 12:01 Blood Culture - Preliminary Peripheral Venipuncture Culture is incubating and being continuously m onitored for growth. Final report to follow. 04/16/19 11:35 Blood Culture - Preliminary Peripheral Venipuncture Culture is incubating and being continuously monitored for growth. Final report to follow. - Clinical Findings Intake & Output: Intake & Output 04/15/19 04/16/19 04/16/19 23:59 07:59 15:59 Intake Total 1400 / 1400 Balance 1400 / 1400 Weight 110.132 kg
[2019-04-16] MEDS ORDERED: ceFAZolin 2,000 MG in D5% in Water 100 ML IVPB ONE (15:23)
[2019-04-16] MEDS ORDERED: *HR* Propofol 200 MG/20 ML VIAL IVP ONE (15:25)
[2019-04-16] MEDS ORDERED: Dexamethasone 4 MG/ML VIAL ONE (15:25)
[2019-04-16] MEDS ORDERED: *HR* Succinylcholine 200 MG/10 ML VIAL IVP ONE (15:25)
[2019-04-16] MEDS ORDERED: *HR* Norepinephrine 4 MG/4 ML VIAL IVC ONE (15:26)
[2019-04-16] MEDS ORDERED: Albumin Human 5% 50.0 GM/1,000 ML VIAL ONE (15:26)
[2019-04-16] MEDS ORDERED: Calcium Gluconate 1,000 MG/10 ML VIAL ONE (15:26)
[2019-04-16] MEDS ORDERED: D5% in Water 1,000 ML IVC ONE (15:27)
[2019-04-16] MEDS ORDERED: NiCARdipine 2.5 MG/10 ML Syringe IVPB ONE (15:27)
[2019-04-16] MEDS ORDERED: *HR* FentaNYL (PF) 100 MCG/2 ML VIAL ONE (15:28)
[2019-04-16] MEDS ORDERED: EPINEPHrine 1 MG/ML VIAL ONE ×3 (15:29→15:46)
[2019-04-16] MEDS ORDERED: *HR* PHENYLEPHRINE 1,000 MCG/10 ML SYRINGE IVP ONE (15:30)
[2019-04-16 15:42] LABS: ABG Base Excess -5 mEq/L (-2 to 3); ABG HCO3 22 mEq/L (21-27); ABG Oxygen Saturation 95 % (95-98); ABG PCO2 46 mmHg (35-45); ABG PH 7.28 pH Units (7.32-7.45); ABG PO2 87 mmHg (85-104); ABG TCO2 23 mEq/L (20-26); Blood Gas Modality BiLevel; Blood Gas PEEP 5 cm H2O; Blood Gas VT 500 cc
--- NOTE | 2019-04-16 15:48 | Vascular/Endovasc Consult Note ---
Date of Encounter: 04/16/19 Time of Encounter: 15:43 Assessment and Plan (1) Nontraumatic retroperitoneal hematoma Current Visit: Yes Status: Acute Large left-sided retroperitoneal hematoma. Patient is hemodynamically unstable due to this issue and suspected continue retroperitoneal bleeding. Patient to the operating room today for abdominal exploration and control of bleeding. (2) Endoleak post (EVAR) endovascular aneurysm repair Current Visit: Yes Status: Acute Recurrent type II endoleak. This does not appear to be involved in the retroperitoneal hematoma which is most likely secondary to Eliquis. Qualifiers: Encounter type: initial encounter Qualified Code(s): T82.330A - Leakage of aortic (bifurcation) graft (replacement), initial encounter (3) Atrial fibrillation Current Visit: No Status: Chronic Patient has history of atrial fibrillation. Qualifiers: Atrial fibrillation type: chronic Qualified Code(s): I48.2 - Chronic atrial fibrillation - History of Present Illness Consult date: 04/16/19 Consult reason: Retroperitoneal hematoma Chief complaint: Severe back pain History of present illness: Mr. Hernandez is a 78 year old male Who was seen in the emergency room because of severe back pain. The patient had a CT scan that demonstrated a large left-sided retroperitoneal hematoma. The patient's history is complex in the sense that approximately 5 years ago he had undergone a's endovascular stent graft repair of an abdominal aortic aneurysm. He was noted on postop follow-up developed a type II endoleak that demonstrated increasing size of the residual aneurysm sac. This was eventually treated at [facility] with coiling with successful obliteration of the type II endoleak and stabilization of the size of the sac. He was in the clinic to see me earlier this summer. At that time the aneurysm sac was approximately 7.6 cm with no finding of endoleak and the patient was asymptomatic. Because of atrial fibrillation he was recommended to be placed on anticoagulation therapy which begun approximately in mid February. The patient's does relate the story of back pain that occurred last week. This was not pursued and and he had the issue earlier today that began this morning after no trauma or unusual activity. After a very aggressive resuscitative effort in the emergency room including consultation with multiple specialists the patient did not respond to blood product therapy. His initial hemoglobin was 11 and then when repeated was 8. He had intermittent but persistent episodes of hypotension. He was eventually intubated because of nausea and vomiting and required Levophed for blood pressure support. Because of this irregular hemodynamic profile and instability the patient was recommended to undergo a laparotomy for treatment of suspected ongoing retroperitoneal bleeding. The type II endoleak identified on the CT scan from earlier today most likely represents E effect of the Ellik was as the size of the residual aneurysm sac is also increased. I do not see any disruption of the stent graft. The issue appears to be that of retroperitoneal bleeding associated with anticoagulation and antiplatelet therapy. Therefore the patient will be taken to the operating room today for emergency exploratory laparotomy and retroperitoneal exploration. This was discussed with the patient's and family. All questions were answered. Plan on patient going to the intensive care unit following surgery. Past Med Surg Social Fam HX - Past Medical History Medical history: atrial fibrillation, COPD, hyperlipidemia, hypertension, thyroid disease Additional medical history: gout Psychiatric history: no psych history - Past Surgical History Surgical History: orthopedic, other, other Additional surgical history: AAA, left ear surgery,RTK, EGD 2016 - Social History Smoking Status: Never smoker Smokeless Tobacco Status: No Alcohol use: none Drug use: none - Family History Father Family Member Ethnicity: Non- Living Status: Hx Family Cancer: Yes (Multiple myeloma) Mother Family Member Ethnicity: Non- Living Status: Hx Family Endocrine Disorder: Yes (Liver disease) Brother Family Member Ethnicity: Non- Living Status: Hx Family Cardiac Disorders: Yes (HD) Hx Family Endocrine Disorder: Yes (DM) Sister Family Member Ethnicity: Non- Living Status: Still Living Medications and Allergies Garlic 1,000 mg PO QPM 11/17/15 [History] Allopurinol [Zyloprim] 300 mg PO QPM 04/03/17 [History] Levothyroxine [Synthroid] 75 mcg PO DAILY 04/03/17 [History] Clopidogrel [Plavix] 75 mg PO DAILY #30 tablet 04/05/17 [Rx] Ranitidine HCl [Acid Dental Hygiene Teacher] 150 mg PO BID 06/25/17 [History] dilTIAZem HCl [Diltiazem HCl] 120 mg PO QPM 06/25/17 [History] Loratadine [Allergy Relief] 10 mg PO DAILY 10/27/18 [History] Carvedilol 3.125 mg PO BID 10/28/18 [History] [place]-3/Dha/Epa/Fish Oil [[facility] Fish Oil 1,000 mg Softgel] 1 cap PO QPM 10/28/18 [History] Albuterol Sulfate [Proventil Inhaler] 2 puff IH Q6HR PRN #1 hfa.aer.ad 11/01/18 [Rx] Omeprazole [PriLOSEC] 20 mg PO BIDAC #60 capsule. 11/17/18 [Rx] Allergy/AdvReac Type Severity Reaction Status Date / Time No Known Allergies Allergy Verified 11/15/18 16:54 All Systems Review: The remainder of the systems were reviewed and are negative Exam Vital Signs, Last 4 Hours Pulse Resp BP Pulse Ox 04/16/19 15:28 110 18 187/105 97 04/16/19 15:18 110 18 186/114 97 04/16/19 15:12 14 72/56 94 04/16/19 15:09 84 18 114/69 99 04/16/19 15:03 93 18 104/65 99 04/16/19 14:05 81 16 115/67 100 04/16/19 13:59 83 16 101/55 100 04/16/19 13:19 88 21 87/60 100 04/16/19 12:46 94 17 108/58 95 04/16/19 12:44 95 19 97/60 100 04/16/19 12:35 96 18 94/70 100 04/16/19 12:29 92 14 94/46 100 04/16/19 12:20 91 18 62/40 100 04/16/19 12:02 97 18 118/66 95 04/16/19 11:55 94 18 104/68 97 04/16/19 11:50 93 19 112/66 97 04/16/19 11:47 90 18 108/75 96 HEENT: Present: Atraumatic, Normocephaly, Trachea midline Neck: Absent: JVD, Midline deformity Cardiac: Present: Reg Rate and Rhythm, Normal S1 and S2 Lungs: Present: Normal Breath Sounds Neuro: Present: Other (Patient is sedated and intubated) Abdomen: Present: Soft, Other (Abdomen is obese and distended. He has active bowel sounds. There are no abdominal bruits. There is no discoloration of the periumbilical or flank region.) Vascular: Present: Normal capillary refill Skin: Present: No rashes noted on visualized skin Consult Discharge Plan - Plan Referrals: Kelvin Loya DO [Primary Care Provider] -
[2019-04-16] MEDS ORDERED: Esmolol 2.5 GM/250 ML MLS IVC ONE (15:52)
[2019-04-16] MEDS ORDERED: Lidocaine -MPF 2% 2 ML VIAL ONE ×2 (15:53→19:35)
[2019-04-16] MEDS ORDERED: Esmolol 100 MG/10 ML VIAL IVP ONE ×2 (15:53→19:35)
[2019-04-16] MEDS ORDERED: EPHEDrine 50 MG/ML VIAL ONE (15:54)
[2019-04-16] MEDS ORDERED: *HR* Atropine Sulfate 8 MG/20 ML VIAL IVP ONE (15:55)
[2019-04-16] MEDS ORDERED: *HR* Rocuronium Bromide 50 MG/5 ML VIAL ONE (15:58)
[2019-04-16] MEDS ORDERED: Lacri-Lube 3.5 GM TUBE ONE (16:03)
[2019-04-16 16:56] LABS: Basophils % 0.1 %; Hematocrit 32.1 % (37.5-50.1); Hemoglobin 10.5 g/dL (12.9-16.9); Immature Granulocytes % 3.1 % (0-4); Lymphocytes # 0.6 K/mcL (0.6-4.6); Lymphocytes % 4.9 %; Mean Corpuscular HGB Conc 32.7 g/dL (31.6-35.5); Mean Corpuscular Hemoglobin 32.5 pg (28.0-33.3); Mean Corpuscular Volume 99.4 fL (83.0-100.0); Mean Platelet Volume 11.2 fL (9.4-12.4); Monocytes % 15.7 %; Neutrophils # 9.7 K/mcL (1.6-8.9); Platelet Count 103 K/mcL (140-400); Red Blood Count 3.23 M/mcL (4.19-5.50); Red Cell Distribution Width 15.7 % (11.5-14.5); Segmented Neutrophils % 76.2 %; White Blood Count 12.7 K/mcL (4.3-11.1)
[2019-04-16 17:01] LABS: ABG Base Excess -6 mEq/L (-2 to 3); ABG HCO3 22 mEq/L (21-27); ABG Oxygen Saturation 98 % (95-98); ABG PCO2 60 mmHg (35-45); ABG PH 7.18 pH Units (7.32-7.45); ABG PO2 123 mmHg (85-104); ABG TCO2 24 mEq/L (20-26)
[2019-04-16] MEDS ORDERED: Sodium Bicarbonate 50 MEQ/50 ML VIAL ONE (17:01)
[2019-04-16 17:08] LABS: INR 1.2; Prothrombin Time 13.9 Seconds (9.4-12.1)
[2019-04-16 17:13] LABS: Alanine Aminotransferase 9 Units/L (7-52); Albumin 3.6 g/dL (3.5-5.7); Albumin/Globulin Ratio 2.3 (1.1-2.2); Alkaline Phosphatase 40 Units/L (34-104); Aspartate Amino Transferase 16 Units/L (13-39); BUN/Creatinine Ratio 16 (6-26); Bilirubin,Total 0.8 mg/dL (0.3-1.0); Blood Urea Nitrogen 18 mg/dL (8-23); Calcium 7.2 mg/dL (8.6-10.3); Carbon Dioxide 24 mEq/L (23-29); Chloride 107 mEq/L (98-107); Globulin 1.6 g/dL (2.4-3.5); Glucose 190 mg/dL (70-105); Magnesium 1.9 mg/dL (1.6-2.6); Osmolality,Calculated 299 (280-300); Potassium 4.5 mEq/L (3.5-5.1); Sodium 141 mEq/L (136-145); Total Protein 5.2 g/dL (6.4-8.9); eGFR For African Americans > 60 (> 60); eGFR For Non-African Americans > 60 (> 60)
--- NOTE | 2019-04-16 17:38 | Internal Med History&Physical ---
Date of Encounter: 04/16/19 Time of Encounter: 13:15 Internal Medicine - H&P: HPI Chief complaint: shock Admitted From: Emergency Dept Plans for Post Hospital Care: Transfer [facility] Facility History of present illness: Mr. Hernandez is a 78 year old male who presents to the ER in shock -- found to be hemorrhagic in nature secondary to retroperitoneal bleed and suspected endovascular leak from an abdominal aortic aneurysm. Vascular surgery was consulted emergently to the ER and I was asked t admit patient o the intensive care unit. I came to ER to see patient, assessed the patient, and I then discussed with her Carley and ER staff. He was fluid and blood product resuscitated. I again discussed the case with Dr. Howe. The goal was to stabilize him hemodynamically, reverse coagulopathy as best possible, and monitor closely in ICU. If he did not stabilize, Dr. Fishman was planning on taking him to surgery. I requested further blood product transfusion including PRBCs, FFP, and IV fluid support. I requested the ER staff place a central venous catheter for ongoing need for hemodynamic monitoring, aggressive transfusion if necessary, and need for frequent blood draws. I met with patient, family, and obtained further history. He does have remote history of duodenal ulcer. I confirmed this on records and noted he had a cratered duodenal ulcer back in November of this year. He and his deny patient having had a history of GI bleed recently. He has had melena, however since then. He has been on iron supplementation since November, and this could not lead to melenic-appearing stools. I discussed the case with Dr. Hartmann and Dr. Rosas, requesting consultation from both of them given his presentation with hemorrhagic shock. The hemorrhage was in his retroperitoneum and likely related to his AAA. However, there is a remote possibility of retroperitoneal bleed from a perforated duodenal ulcer. I therefore requested EGD from Dr. Rosas to which he was receptive. I then went back to ER to reassess him, and he initially appeared to be stabilize hemodynamically. He was pink, well-perfused, mentating normally, and was able to provide history to me and his . In the midst of our conversation, he became acutely pale, diaphoretic, nauseated, and was trying to vomit. He also became hypotensive at that point. At that moment, I requested emergency intubation in the ER to protect his airway. He was successfully intubated by ER staff per my request. I contacted Dr. Howe, Dr. Hartmann, Dr. Rosas -- updating them of the status. I also called interventional radiology wondering if they can do an angiogram to help localize source of bleeding. IR did not feel they could be of help given his CT findings. I discussed the patient's case at length with Dr. Hartmann at the bedside in the ER. Once he was stabilized in the ER, we were planning on proceeding with repeat CT scan, then transferring to ICU for ongoing care, and proceeding with EGD to rule out any potential GI bleed. As I was discussing with the patient family, Dr. Hartmann and Dr. Howe will conversing together, and I was informed that Dr. Howe was on his way to take him to the operating room emergently. We therefore decided to forego the CAT scan and to postpone EGD. I updated family and discussed the case again with Dr. Hartmann, Dr. Howe, and Dr. Rosas. Patient is presently in the OR undergoing emergency vascular surgery. We will assume care in the intensive care unit in consultation with Dr. Hartmann, Dr. Howe, and Dr. Rosas. Past Med Surg Social Fam HX - Past Medical History Attestation: Yes The following information was validated with the patient. Source: patient, old records reviewed, obtained from family, other (discussions with ER staff and vascular surgery) Medical history: aortic aneurysm, atrial fibrillation, COPD, hyperlipidemia, hypertension, thyroid disease Additional medical history: gout Psychiatric history: no psych history - Past Surgical History Surgical History: orthopedic, other, vascular surgery, other Additional surgical history: AAA, left ear surgery,RTK, EGD 2016 - Social History Smoking Status: Never smoker Smokeless Tobacco Status: No Alcohol use: none Drug use: none Current living situation: Home, With Family Activity Level: Independent ambulation Recent Out of Country Travel Within the Last 8 Weeks: No - Family History Father Family Member Ethnicity: Non- Living Status: Hx Family Cancer: Yes (Multiple myeloma) Mother Family Member Ethnicity: Non- Living Status: Hx Family Endocrine Disorder: Yes (Liver disease) Brother Family Member Ethnicity: Non- Living Status: Hx Family Cardiac Disorders: Yes (HD) Hx Family Endocrine Disorder: Yes (DM) Sister Family Member Ethnicity: Non- Living Status: Still Living Internal Medicine - H&P: Meds Garlic 1,000 mg PO QPM 11/17/15 [History] Allopurinol [Zyloprim] 300 mg PO QPM 04/03/17 [History] Levothyroxine [Synthroid] 75 mcg PO DAILY 04/03/17 [History] Clopidogrel [Plavix] 75 mg PO DAILY #30 tablet 04/05/17 [Rx] Ranitidine HCl [Acid Long Chain Dyeing Machine Operator] 150 mg PO BID 06/25/17 [History] dilTIAZem HCl [Diltiazem HCl] 120 mg PO QPM 06/25/17 [History] Loratadine [Allergy Relief] 10 mg PO DAILY 10/27/18 [History] Carvedilol 3.125 mg PO BID 10/28/18 [History] [place]-3/Dha/Epa/Fish Oil [[facility]vs Fish Oil 1,000 mg Softgel] 1 cap PO QPM 10/28/18 [History] Albuterol Sulfate [Proventil Inhaler] 2 puff IH Q6HR PRN #1 hfa.aer.ad 11/01/18 [Rx] Omeprazole [PriLOSEC] 20 mg PO BIDAC #60 capsule.dr 11/17/18 [Rx] Allergy/AdvReac Type Severity Reaction Status Date / Time No Known Allergies Allergy Verified 11/15/18 16:54 - Constitutional Constitutional: no chills, no fever(s) - EENT Eyes: no blurry vision, no change in vision Ears: no ear pain, no other Nose, mouth and throat: no sore throat - Cardiovascular Cardiovascular ROS IM: diaphoresis, lightheadedness, syncope, no chest pain - Respiratory Respiratory: dyspnea, no cough, no hemoptysis - Gastrointestinal Gastrointestinal: abdominal pain, melena (on iron supplements), no coffee ground emesis, no hematemesis, no hematochezia - Genitourinary Genitourinary ROS male: flank pain, no dysuria, no hematuria - Musculoskeletal Musculoskeletal ROS IM: no arthralgias, no back pain - Integumentary Integumentary IM: no rash, no jaundice - Neurological Neurological ROS: dizziness, no focal weakness, no frequent falls - Psychiatric Psychiatric: no anxiety, no depression - Endocrine Endocrine IM: no polydipsia, no polyuria - Hematologic/Lymphatic Hematologic/Lymphatic: easy bruising - Allergic/Immunologic Allergic/Immunologic: GI upset with certain foods - Constitutional Vitals: Temp Pulse Resp BP Pulse Ox 98.2 F 110 18 150/136 97 04/16/19 11:37 04/16/19 15:28 04/16/19 15:42 04/16/19 15:42 04/16/19 15:42 General appearance: Present: A&O X 3, severe distress Exam: initially was in shock, stabilized and well-perfused after fluid and PRBC resuscitation, then became acutely diaphoretic and pale again on repeat exam - Head Head exam: Present: normal inspection - Eye Eye exam: Present: EOMI, PERRL. Absent: scleral icterus Pupils: Present: normal accommodation Additional comments: pale conjunctiva - ENT ENT exam: Present: mucous membranes dry, normal exam, normal oropharynx - Neck Neck exam general surgery: Present: full ROM, supple. Absent: lymphadenopathy, tenderness, nuchal rigidity, thyromegaly - Respiratory Respiratory exam: Present: rhonchi. Absent: accessory muscle use, chest wall tenderness, rales, respiratory distress, wheezes - Cardiovascular Cardiovascular exam: Present: distant heart sounds, irregular rhythm, tachycardia. Absent: diastolic murmur, systolic murmur - GI/Abdominal GI/Abdominal exam: Present: hypoactive bowel sounds, soft, tenderness (mild epigastric), no peritoneal signs. Absent: guarding, hepatomegaly, rebound, sple nomegaly - Extremities Exam Extremities exam: Present: full ROM. Absent: calf tenderness, joint swelling, normal capillary refill (delayed initially at 5 seconds; normalized after stabilzation), pedal edema - Back Exam Back exam: Present: CVA tenderness (L). Absent: CVA tenderness (R) - Neurological Exam Neurological exam: Present: alert, CN II-XII intact, oriented X3, no focal deficits, strengths equal and symetr throughout - Psychiatric Psychiatric exam: Present: anxious - Skin Skin exam: Present: dry, pallor, warm. Absent: rash Internal Med - H&P Results - Labs CBC & Chem 7: 04/16/19 16:38 04/16/19 16:38 Labs: Short CBC 04/16/19 04/16/19 04/16/19 Range/Units 11:35 13:12 14:48 WBC 10.9 (4.3-11.1) K/mcL Hgb 11.3 L 8.9 L D 10.3 L (12.9-16.9) g/dL Hct 35.4 L 28.2 L 32.0 L (37.5-50.1) % Plt Count 178 (140-400) K/mcL Neutrophils # 7.9 (1.6-8.9) K/mcL 04/16/19 Range/Units 16:38 WBC 12.7 H (4.3-11.1) K/mcL Hgb 10.5 L (12.9-16.9) g/dL Hct 32.1 L (37.5-50.1) % Plt Count 103 L (140-400) K/mcL Neutrophils # 9.7 H (1.6-8.9) K/mcL BMP 04/16/19 04/16/19 11:35 16:38 Sodium 137 141 Potassium 3.9 4.5 Chloride 102 107 Carbon Dioxide 20 L 24 BUN 14 18 Creatinine 1.07 1.13 Glucose 263 H 190 H Calcium 8.3 L 7.2 L Cardiac Enzymes 04/16/19 Range/Units 11:35 Troponin I < 0.03 (< 0.04) ng/mL Liver Function 04/16/19 04/16/19 Range/Units 11:35 16:38 Total Bilirubin 0.7 0.8 (0.3-1.0) mg/dL Direct Bilirubin 0.1 (0.0-0.2) mg/dL AST 14 16 (13-39) Units/L ALT 10 9 (7-52) Units/L Alkaline Phosphatase 52 40 (34-104) Units/L Albumin 4.0 3.6 (3.5-5.7) g/dL Urine 04/16/19 Range/Units 12:08 Urine Color Yellow (Yellow) Urine Clarity Clear (Clear) Urine pH 7.5 (5.0-8.0) pH Units Ur Specific [place] 1.016 (1.010-1.025) Urine Protein 30 H (Neg-Trace) mg/dL Urine Glucose (UA) Normal (Normal) mg/dL - ABG Interpretation ABG results: 04/16/19 04/16/19 04/16/19 11:37 12:04 15:34 ABG pH 7.28 L ABG pCO2 46 H ABG pO2 87 ABG HCO3 22 ABG Total CO2 23 ABG O2 Saturation 95 ABG Base Excess -5 L VBG pH 7.41 7.33 VBG pCO2 30 L 36 L VBG pO2 92 H 129 H VBG HCO3 19 L 19 L 04/16/19 16:56 ABG pH 7.18 L* ABG pCO2 60 H ABG pO2 123 H ABG HCO3 22 ABG Total CO2 24 ABG O2 Saturation 98 ABG Base Excess -6 L VBG pH VBG pCO2 VBG pO2 VBG HCO3 - Impressions ITS Impressions CT Dissection 04/16/19 11:33 IMPRESSION: 1. Status post endovascular repair of an abdominal aortic aneurysm with a bifurcated aorto bi-iliac endograft with new development of an endoleak and increase in size of the aneurysm sac now measuring 9 x 9 cm. There is also a new large left retroperitoneal hemorrhage which displaces the left kidney and likely is secondary to rupture of the aneurysm sac. These findings were discussed with Mariposa Bedolla at 12:25 p.m. 04/16/2019. 2. No active pulmonary disease. D/ / Rigoberto Patel MD / Rigoberto Patel MD Interpreting Provider: Rigoberto Patel MD Chest X-Ray 04/16/19 14:00 IMPRESSION: 1. Right jugular central venous line placement with tip in the superior vena cava and no immediate complications. 2. Low lung volumes with mild vascular congestion. D/ / Rigoberto Patel MD / Rigoberto Patel MD Interpreting Provider: Rigoberto Patel MD Chest X-Ray 04/16/19 14:30 IMPRESSION: Endotracheal tube tip is within the proximal right mainstem bronchus. Recommend retraction of at least 4-5 cm. Slightly increasing right basilar opacities likely atelectasis. The findings were sent to the Radiology Results Communication Center at 3:40 pm on 04/16/2019to be communicated to a licensed caregiver. D/ / 04/16/2019 15:41:34 Shaniqua Aguirre MD / [facility] Interpreting Provider: Shaniqua Aguirre MD - Diagnostic Studies CT scan - abdomen Status: image reviewed by me (with Dr. Fishman and Dr. Hartmann) - Assessment and Plan (1) Hemorrhagic shock Current Visit: Yes Status: Acute Assessment and plan: 1. S/P fluid and blood product resuscitation in ER per my and ER staff orders. 2. CVC placed in ER per my request. 3. Emergently intubated by ER per my request for concerns of impending UGI bleed and/or ongoing AAA bleed (airway protection). 4. Hemodynamics preserved with above and short course Levophed. 5. Consult Dr. Hartmann for ongoing assistance in ICU management. 6. Dr. Fishman consulted and managing vascular repair. 7. Consult Dr. Rosas for EGD after vascular surgery. 8. IV PPI drip, frequent H/H monitoring, and transfusion as necessary. (2) Duodenal ulcer Current Visit: Yes Status: Chronic Assessment and plan: 1. Documented history of cratered duodenal ulcer in November,. 2. No history to suggest UGI bleed other than melena -- however, he is on iron supplementation. 3. Continue PPI drip. 4. EGD after vascular surgical intervention. 5. Low suspicion of UGI bleed. (3) Endoleak post (EVAR) endovascular aneurysm repair Current Visit: Yes Status: Acute Assessment and plan: 1. As above, Dr. Fishman currently in OR with patient performing surgery. Qualifiers: Encounter type: initial encounter Qualified Code(s): T82.330A - Leakage of aortic (bifurcation) graft (replacement), initial encounter (4) DVT prophylaxis Current Visit: Yes Status: Acute Assessment and plan: 1. EPCD's. (5) Atrial fibrillation Current Visit: Yes Status: Chronic Assessment and plan: 1. Stop anticoagulation. 2. Rate control as necessary while maintaining hemodynamic stability. Qualifiers: Atrial fibrillation type: chronic Qualified Code(s): I48.2 - Chronic atrial fibrillation - Time Spent With Patient Total time spent is greater than 50% in coordination of care (as documented) at patient's floor/unit and/or counseling patient: 75 minutes critical care time spent assessing patient, reassessing patient, stabilizing patient, and coordinating care with multiple consultants, ER staff, and updating family.
--- NOTE | 2019-04-16 18:43 | Operative Note ---
Date of procedure: 04/16/19 Pre-op diagnosis: retroperitoneal hematoma/hemorrhagic shock Post-op diagnosis: same Procedure: exploratory laparotomy with evacuation of retroperitoneal hematoma Complications: 0 Anesthesia: GETA Surgeon: River Fishman Co-Surgeon: Gagan Aldrich Was there an insurance claims assistant present: No Estimated blood loss (cc): 1,000 (from retroperitoneal hematoma) Urine output (cc): 300 Specimen: 0 Condition: stable Disposition: ICU Procedure in Detail: History Arnold Hernandez is a 78-year-old white male who presented to the emergency room this morning with severe back pain and hypotension. The patient had severe onset of symptoms this morning with profound pain and then altered state of consciousness. In review of the situation with the patient's family the patient had had back pain last week that was intermittent. The patient is on anticoagulation and antiplatelet agents. A CT scan was performed which demonstrated a very large left-sided retroperitoneal hematoma. There is also findings of a type II endoleak and expansion of the residual aneurysm sac. Type II endoleak had been previously treated by coiling and had resolved and so this endoleak was thought secondary to the institution of anticoagulation as was this large retroperitoneal hematoma. The patient was initially responsive to fluid and blood that became more unstable requiring intubation and the institution of levo fed. Because of this conservative treatment for the retroperitoneal hematoma was no longer viable and the patient needed emergency surgery for exploration. Procedure After informed consent was obtained the patient was taken to the operating room. The patient was placed under general endotracheal anesthesia. The abdomen groin and upper thighs were sterilely prepped and draped. A vertical midline incision was made after timeout protocol was observed. Exploration of the abdomen revealed a markedly distended stomach. There was no free blood. The other viscera appeared normal. The patient had deep staining all the midline and left lower quadrant area retroperitoneum with obvious distention of the retroperitoneal area. Of note however this was nonpulsatile. After the stomach was decompressed with a nasogastric tube the viscera was then rotated into the right upper quadrant. The duodenum was carefully inspected to ensure that there was no perforation or bleeding as the patient had a history of previous duodenal ulcer. Then the lateral margin of the descending colon and sigmoid colon were dissected away from the abdominal wall. The colon was then reflected medially to expose the left lateral and left central retroperitoneum. This demonstrated a very large nonpulsatile hematoma over the psoas muscle. The fascia and investing tissue was then incised. The space medial to the psoas muscle was then freed and this was the area where the concentration of the greatest amount of retroperitoneal hematoma was found. The retroperitoneal hematoma was then evacuated. There was well over 1 L of liquid and clotted blood was removed from this area. This area was then repeatedly packed with laps and then with thrombin-soaked Gelfoam. There was no active venous or arterial bleeding in this area. There was diffuse oozing which is expected in light of the patient's anticoagulation and antiplatelet medications and the distention of the tissue. After this oozing significantly abated the area was then treated with Ehsan for further topical hemostasis. His material was left in position and the retroperitoneum was then allowed to passively be closed by replacing the left colon back into its normal position. It should be noted that prior to this the abdomen and retroperitoneum was copiously irrigated with warm antibiotic containing solution. The aneurysm sac was intact without signs of any type of leakage from the aneurysm sac. It was opted not to open the aneurysm sac due to the distortion of the anatomy and the possibility of causing disruption of the stent grafts. All 4 quadrants of the abdomen were carefully aspirated to remove any residual fluid or old blood and to inspect for any potential alternative source of bleeding. None was found. With this done the viscera were placed back into the normal position. The fascia of the abdomen was closed with 2 looped PDS sutures. The deep subcutaneous and superficial subcutaneous tissue with an closed with running absorbable suture. Skin remedios were used to approximate the skin edges. A dry sterile dressing was then applied. The patient was left intubated. He was transported from the operating room to the intensive care unit intubated and without the need for pressors as he was hemodynamically stable. The patient created approximately 300 mL of urine in the operating room. The patient received approximately 550 mL of Cell Saver. One unit of packed red blood cells was administered in the operating room. The patient will no longer be permitted to be on anticoagulation for his history of atrial fibrillation. His antiplatelet agents will be held indefinitely.
[2019-04-16] MEDS ORDERED: Ondansetron 4 MG/2 ML VIAL IVP PRN (18:44)
[2019-04-16] MEDS ORDERED: *HR* Labetalol 20 MG/4 ML SYRINGE IVP PRN (18:44)
[2019-04-16] MEDS ORDERED: Naloxone 0.4 MG/ML INJ IVP PRN (18:44)
[2019-04-16] MEDS ORDERED: Artificial Tears SOLN 15 ML BOTTLE BOTH EYES PRN (19:01)
[2019-04-16] MEDS ORDERED: *HR* Phenylephrine 10 MG/ML VIAL ONE (19:35)
[2019-04-16] MEDS: Pantoprazole 40 MG in 0.9 % Sodium Chloride Mini Bag 100 ML IVC SCH ×2 (19:44→19:45)
[2019-04-16] MEDS: Ringers Solution, Lactated 1,000 ML IVC SCH (19:44)
[2019-04-16] MEDS: Artificial Tears SOLN 15 ML BOTTLE BOTH EYES SCH ×2 (19:45→23:41)
[2019-04-16 20:14] LABS: Basophils % 0.1 %; Hematocrit 38.9 % (37.5-50.1); Hemoglobin 12.9 g/dL (12.9-16.9); Immature Granulocytes % 2.8 % (0-4); Lymphocytes # 0.4 K/mcL (0.6-4.6); Lymphocytes % 2.7 %; Mean Corpuscular HGB Conc 33.2 g/dL (31.6-35.5); Mean Corpuscular Hemoglobin 31.5 pg (28.0-33.3); Mean Corpuscular Volume 95.1 fL (83.0-100.0); Monocytes # 1.9 K/mcL (0.0-1.3); Monocytes % 13.1 %; Neutrophils # 11.5 K/mcL (1.6-8.9); Platelet Count 101 K/mcL (140-400); Red Blood Count 4.09 M/mcL (4.19-5.50); Red Cell Distribution Width 16.9 % (11.5-14.5); Segmented Neutrophils % 81.3 %; White Blood Count 14.2 K/mcL (4.3-11.1)
[2019-04-16 20:14] LABS: VBG Ionized Calcium 1.03 mmol/L (1.15-1.35)
[2019-04-16 20:21] LABS: INR 1.1; Prothrombin Time 12.9 Seconds (9.4-12.1)
[2019-04-16 20:24] LABS: Activated Partial Thrombo Time 30.3 Seconds (26.0-36.0)
[2019-04-16 20:27] LABS: ABG Base Excess -2 mEq/L (-2 to 3); ABG HCO3 25 mEq/L (21-27); ABG Oxygen Saturation 98 % (95-98); ABG PCO2 51 mmHg (35-45); ABG PO2 113 mmHg (85-104); ABG TCO2 27 mEq/L (20-26); Blood Gas Modality ASSIST CONTROL; Blood Gas PEEP 5 cm H2O; Blood Gas VT 500 cc
[2019-04-16 20:31] LABS: BUN/Creatinine Ratio 18 (6-26); Blood Urea Nitrogen 17 mg/dL (8-23); Calcium 7.9 mg/dL (8.6-10.3); Carbon Dioxide 25 mEq/L (23-29); Chloride 109 mEq/L (98-107); Glucose 137 mg/dL (70-105); Osmolality,Calculated 300 (280-300); Potassium 4.1 mEq/L (3.5-5.1); Sodium 143 mEq/L (136-145); eGFR For African Americans > 60 (> 60); eGFR For Non-African Americans > 60 (> 60)
--- NOTE | 2019-04-16 20:57 | Operative Note ---
Date of procedure: 04/16/19 Pre-op diagnosis: Left retroperitoneal hemorrhage, hemorrhagic shock Post-op diagnosis: same Procedure: Exploratory laparotomy for retroperitoneal hemorrhage with evacuation of hematoma. Complications: None Anesthesia: GETA Surgeon: Gagan Aldrich Co-Surgeon: River Fishman Was there an mechanic's assistant present: No Estimated blood loss (cc): 300 (retroperitoneal hematoma) Specimen: None Condition: stable Disposition: ICU Procedure in Detail: Indications: The patient is a 78-year-old male with a history of an abdominal aortic aneurysm. He previously underwent endograft repair of his abdominal aort ic aneurysm. Patient also had an endoleak which was embolized by interventional radiology several years ago. The patient presented to the emergency room with hypotension and shock. He was noted to have a large retroperitoneal hematoma. He was anticoagulated at the time. The patient was resuscitated and was initially stable. However he developed progressive hypotension and operative exploration was warranted. Procedure: The patient was identified and taken to the operative room. After general endotracheal intubation, the patient was prepped and draped in normal sterile fashion. A benign incision was made sharply. Hemostasis was obtained with large cautery. Through a process of blunt, sharp R dissection the midline fascia was encountered. An incision was made through the midline fascia and into the peritoneal cavity. Duration of the abdomen revealed no evidence of intraperitoneal blood. The retroperitoneum was then exposed along the left paracolic gutter. The descending colon was rotated medially and the retroperitoneum was explored. Scattered venous bleeding was identified. There is no arterial bleeding. The aneurysm was inspected and there was no evidence of bleeding from the aneurysmal sac. The hematoma was evacuated. Thrombin and Gelfoam used to aid in hemostasis. The wound was then irrigated with warm saline. Additional exploration was then performed and no evidence of any significant bleeding site was identified. The wound was packed with additional thrombin and Gelfoam. The was then irrigated again with warm saline. Additional inspection along the aneurysm was performed and no evidence of bleeding was identified. Meticulous hemostasis was obtained throughout the retroperitoneum with electrocautery. Ehsan was then infiltrated along the retroperitoneum to aid in hemostasis. The retroperitoneum was then reapproximated with Vicryl suture. The abdominal contents were returned to the normal anatomical position. The midline fascia was reapproximated with running #2 looped PDS suture. Subcutaneous tissue was reapproximated with a running Vicryl suture. Skin was repaired with remedios and a sterile dressing was applied. The patient then taken to the intensive care unit intubated and in stable condition.
[2019-04-16] MEDS ORDERED: Chlorhexidine Rinse 15 ML MOUTHWASH MM SCH (21:00)
[2019-04-16] MEDS ORDERED: Budesonide/Formoterol 160/4.5 1 PUFF INH IH SCH (22:00)
[2019-04-17] MEDS: Pantoprazole 40 MG in 0.9 % Sodium Chloride Mini Bag 100 ML IVC SCH ×6 (00:28→22:56)
[2019-04-17 01:36] LABS: Hematocrit 33.1 % (37.5-50.1)
[2019-04-17 01:39] LABS: Hemoglobin 11.1 g/dL (12.9-16.9)
[2019-04-17] MEDS: Ringers Solution, Lactated 1,000 ML IVC SCH ×2 (03:40→12:18)
[2019-04-17] MEDS: Artificial Tears SOLN 15 ML BOTTLE BOTH EYES SCH ×7 (03:41→22:57)
[2019-04-17 04:31] LABS: ABG Base Excess -2 mEq/L (-2 to 3); ABG HCO3 24 mEq/L (21-27); ABG Oxygen Saturation 94 % (95-98); ABG PCO2 45 mmHg (35-45); ABG PH 7.34 pH Units (7.32-7.45); ABG PO2 77 mmHg (85-104); ABG TCO2 25 mEq/L (20-26); Blood Gas Modality ASSIST CONTROL; Blood Gas PEEP 5 cm H2O; Blood Gas VT 500 cc
[2019-04-17 04:46] LABS: Basophils % 0.1 %; Hematocrit 32.4 % (37.5-50.1); Hemoglobin 10.9 g/dL (12.9-16.9); Lymphocytes # 0.6 K/mcL (0.6-4.6); Lymphocytes % 3.4 %; Mean Corpuscular HGB Conc 33.6 g/dL (31.6-35.5); Mean Corpuscular Hemoglobin 32.6 pg (28.0-33.3); Mean Platelet Volume 11.8 fL (9.4-12.4); Monocytes # 2.5 K/mcL (0.0-1.3); Monocytes % 13.4 %; Neutrophils # 15.4 K/mcL (1.6-8.9); Platelet Count 112 K/mcL (140-400); Red Blood Count 3.34 M/mcL (4.19-5.50); Red Cell Distribution Width 17.7 % (11.5-14.5); Segmented Neutrophils % 82.1 %; White Blood Count 18.8 K/mcL (4.3-11.1)
[2019-04-17 05:00] LABS: INR 1.2; Prothrombin Time 13.6 Seconds (9.4-12.1)
[2019-04-17 05:03] LABS: Activated Partial Thrombo Time 29.5 Seconds (26.0-36.0)
[2019-04-17 05:06] LABS: Albumin 3.5 g/dL (3.5-5.7); Albumin/Globulin Ratio 2.1 (1.1-2.2); Bilirubin,Total 0.5 mg/dL (0.3-1.0); Calcium 7.4 mg/dL (8.6-10.3); Globulin 1.7 g/dL (2.4-3.5); Potassium 4.4 mEq/L (3.5-5.1); Total Protein 5.2 g/dL (6.4-8.9)
[2019-04-17] MEDS: FentaNYL (PF) 1,000 MCG in 0.9 % Sodium Chloride 80 ML IVC SCH ×2 (06:13→12:20)
--- NOTE | 2019-04-17 07:40 | Pulmonology Consult Note ---
Date of Encounter: 04/16/19 Time of Encounter: 14:30 History of Present Illness Consult date: 04/16/19 Requesting physician: Waldemar Jimenez Chief complaint: Abdominal aortic aneurysm History of present illness: This document services only for the purpose of procedure note for endotracheal intubation. Please see pulmonology H&P by Dr. Colby Pollock for further details. Past Med Surg Social Fam HX - Past Medical History Medical history: aortic aneurysm, atrial fibrillation, COPD, hyperlipidemia, hypertension, thyroid disease Additional medical history: gout Psychiatric history: no psych history - Past Surgical History Surgical History: orthopedic, other, vascular surgery, other Additional surgical history: AAA, left ear surgery,RTK, EGD 2016 - Social History Smoking Status: Former smoker Smokeless Tobacco Status: No Alcohol use: none, rarely Drug use: none - Family History Father Family Member Ethnicity: Non- Living Status: Hx Family Cancer: Yes (Multiple myeloma) Mother Family Member Ethnicity: Non- Living Status: Hx Family Endocrine Disorder: Yes (Liver disease) Brother Family Member Ethnicity: Non- Living Status: Hx Family Cardiac Disorders: Yes (HD) Hx Family Endocrine Disorder: Yes (DM) Sister History Unknown: Yes Family Member Ethnicity: Non- Living Status: Still Living Medications and Allergies Garlic 1,000 mg PO QPM 11/17/15 [History] Allopurinol [Zyloprim] 300 mg PO QPM 04/03/17 [History] Levothyroxine [Synthroid] 75 mcg PO DAILY 04/03/17 [History] Clopidogrel [Plavix] 75 mg PO DAILY #30 tablet 04/05/17 [Rx] Ranitidine HCl [Acid [employer]] 150 mg PO BID 06/25/17 [History] dilTIAZem HCl [Diltiazem HCl] 120 mg PO QPM 06/25/17 [History] Loratadine [Allergy Relief] 10 mg PO DAILY 10/27/18 [History] Carvedilol 3.125 mg PO BID 10/28/18 [History] [place]-3/Dha/Epa/Fish Oil [[facility] Fish Oil 1,000 mg Softgel] 1 cap PO QPM 10/28/18 [History] Albuterol Sulfate [Proventil Inhaler] 2 puff IH Q6HR PRN #1 [email or web address] 11/01/18 [Rx] Omeprazole [PriLOSEC] 20 mg PO BIDAC #60 capsule.dr 11/17/18 [Rx] Allergy/AdvReac Type Severity Reaction Status Date / Time No Known Allergies Allergy Verified 11/15/18 16:54 ROS unobtainable: due to endotracheal tube All Systems: The remainder of the systems were reviewed and are negative Physical Examination Vital Signs: Vital Signs, Last 4 Hours Temp Pulse Resp BP Pulse Ox 04/17/19 06:00 94 22 110/61 92 04/17/19 05:00 95 20 114/64 93 04/17/19 04:00 98 F 92 19 105/60 94 04/17/19 03:53 17 94 Ventilator Settings Ventilator Settings: Ventilator Settings, Last 8 Hours Ventilator Tidal Volume 500 Setting Ventilator Tidal Volume 500 Setting Ventilator Tidal Volume 500 Setting Ventilator Tidal Volume 500 Setting Ventilator Tidal Volume 500 Setting Ventilator Tidal Volume 500 Setting Ventilator Tidal Volume 500 Setting Ventilator Tidal Volume 500 Setting Ventilator Tidal Volume 500 Setting Ventilator Tidal Volume 500 Setting Ventilator Tidal Volume 500 Setting Ventilator Respiratory Rate 16 Setting Ventilator Respiratory Rate 16 Setting Ventilator Respiratory Rate 14 Setting Ventilator Respiratory Rate 16 Setting Ventilator Respiratory Rate 16 Setting Ventilator Respiratory Rate 16 Setting Ventilator Respiratory Rate 16 Setting Ventilator Respiratory Rate 16 Setting Ventilator Respiratory Rate 16 Setting Ventilator Respiratory Rate 16 Setting Ventilator Respiratory Rate 16 Setting Actual Respiratory Rate 22 Actual Respiratory Rate 20 Actual Respiratory Rate 19 Actual Respiratory Rate 18 Actual Respiratory Rate 16 Actual Respiratory Rate 20 Actual Respiratory Rate 21 Actual Respiratory Rate 21 Actual Respiratory Rate 18 Actual Respiratory Rate 17 Positive End Expiratory 5 Pressure Positive End Expiratory 5 Pressure Positive End Expiratory 5 Pressure Positive End Expiratory 5 Pressure Positive End Expiratory 5 Pressure Positive End Expiratory 5 Pressure Positive End Expiratory 5 Pressure Positive End Expiratory 5 Pressure Positive End Expiratory 5 Pressure Positive End Expiratory 5 Pressure Positive End Expiratory 5 Pressure Peak Inspiratory Airway 9.4 Pressure Peak Inspiratory Airway 15 Pressure Peak Inspiratory Airway 13 Pressure Peak Inspiratory Airway 15 Pressure Peak Inspiratory Airway 17 Pressure Peak Inspiratory Airway 11 Pressure Peak Inspiratory Airway 12 Pressure Peak Inspiratory Airway 15 Pressure Peak Inspiratory Airway 11 Pressure Peak Inspiratory Airway 16 Pressure Results - Laboratory Findings CBC and BMP: 04/17/19 04:26 04/17/19 04:26 ABG ABG pH 7.34 pH Units (7.32-7.45) 04/17/19 04:29 ABG pCO2 45 mmHg (35-45) 04/17/19 04:29 ABG pO2 77 mmHg (85-104) L 04/17/19 04:29 ABG O2 Saturation 94 % (95-98) L 04/17/19 04:29 PT/INR, D-dimer PT 13.6 Seconds (9.4-12.1) H 04/17/19 04:26 Abnormal lab findings: Abnormal lab results WBC 18.8 K/mcL (4.3-11.1) H 04/17/19 04:26 RBC 3.34 M/mcL (4.19-5.50) L 04/17/19 04:26 Hgb 10.9 g/dL (12.9-16.9) L 04/17/19 04:26 Hct 32.4 % (37.5-50.1) L 04/17/19 04:26 MCV 102.6 fL (83.0-100.0) H 04/16/19 11:35 RDW 17.7 % (11.5-14.5) H 04/17/19 04:26 Plt Count 112 K/mcL (140-400) L 04/17/19 04:26 Band Neutrophils % 6.0 % (0-4) H 04/16/19 11:35 Neutrophils # 15.4 K/mcL (1.6-8.9) H 04/17/19 04:26 Lymphocytes # 0.4 K/mcL (0.6-4.6) L 04/16/19 19:32 Monocytes # 2.5 K/mcL (0.0-1.3) H 04/17/19 04:26 Reactive Lymphocytes Present (Not Present) A 04/16/19 11:35 PT 13.6 Seconds (9.4-12.1) H 04/17/19 04:26 ABG pH 7.30 pH Units (7.32-7.45) L D 04/16/19 20:23 ABG pCO2 51 mmHg (35-45) H 04/16/19 20:23 ABG pO2 77 mmHg (85-104) L 04/17/19 04:29 ABG Total CO2 27 mEq/L (20-26) H 04/16/19 20:23 ABG O2 Saturation 94 % (95-98) L 04/17/19 04:29 ABG Base Excess -6 mEq/L (-2 to 3) L 04/16/19 16:56 VBG pCO2 36 mmHg (41-51) L 04/16/19 12:04 VBG pO2 129 mmHg (25-50) H 04/16/19 12:04 VBG HCO3 19 mEq/L (21-27) L 04/16/19 12:04 Chloride 111 mEq/L (98-107) H 04/17/19 04:26 Carbon Dioxide 21 mEq/L (23-29) L 04/17/19 04:26 BUN 24 mg/dL (8-23) H 04/17/19 04:26 Creatinine 1.42 mg/dL (0.70-1.30) H 04/17/19 04:26 Est GFR ( Amer) 59 (> 60) L 04/17/19 04:26 Est GFR (Non-Af Amer) 48 (> 60) L 04/17/19 04:26 Glucose 148 mg/dL (70-105) H 04/17/19 04:26 POC Glucose 147 mg/dL (70-99) H 04/16/19 23:59 Calculated Osmolality 305 (280-300) H 04/17/19 04:26 Lactic Acid 4.4 mmol/L (0.5-2.2) H* 04/16/19 12:01 Calcium 7.4 mg/dL (8.6-10.3) L 04/17/19 04:26 Venous Ioniz Calcium 1.03 mmol/L (1.15-1.35) L 04/16/19 20:11 Phosphorus 5.0 mg/dL (2.7-4.5) H 04/16/19 16:38 Alkaline Phosphatase 30 Units/L (34-104) L 04/17/19 04:26 Serum Total Protein 5.2 g/dL (6.4-8.9) L 04/17/19 04:26 Globulin 1.7 g/dL (2.4-3.5) L 04/17/19 04:26 Albumin/Globulin Ratio 2.3 (1.1-2.2) H 04/16/19 16:38 Urine Protein 30 mg/dL (Neg-Trace) H 04/16/19 12:08 Urine Blood Small (Negative) H 04/16/19 12:08 Urine Microscopic RBC 5-15 per hpf (0-3) H 04/16/19 12:08 Ur Squamous Epith Cells Many per lpf (None-Few) H 04/16/19 12:08 Crossmatch See Detail 04/16/19 12:01 MTS Gel Crossmatch See Detail 04/16/19 12:01 - Microbiology Findings Microbiology Findings: Microbiology, Last 48 Hours 04/16/19 12:01 Blood Culture - Preliminary Peripheral Venipuncture Culture is incubating and being continuously monitored for growth. Final report to follow. 04/16/19 11:35 Blood Culture - Preliminary Peripheral Venipuncture Culture is incubating and being continuously monitored for growth. Final report to follow. - Clinical Findings Intake & Output: Intake & Output 04/16/19 04/16/19 04/17/19 15:59 23:59 07:59 Intake Total 1400 / 1793.1 393.1 / 1793.1 1219.1 / 1219.1 Output Total 3150 / 3375 400 / 400 Balance 1400 / -1581.9 -2756.9 / -1581.9 819.1 / 819.1 Weight 110.132 kg 112 kg 111.8 kg Pulmonary Procedures - Intubation Time out performed: Yes Sedative: Etomidate Mg given: 20 Paralytic: Rocuronium Mg given: 100 Laryngoscope: fiber optic Assist device used: fiber optic device ET tube size: 7 ET tube uncuffed: Yes Tube secured depth (cm): 21 Tube secured location: lips Tube placement confirmation: visualized tube passing through cords, equal breath sounds bilaterally, no breath sounds over epigastrium, confirmation by capnomet ry Patient tolerated procedure: well Intubation complications: none, difficult intubation (Patient with significant airway edema, was not able to pass a 7.5 ET tube. Second attempt was made with a 7 which was successfully passed.) Consult Discharge Plan - Plan Referrals: Kelvin Loya DO [Primary Care Provider] -
--- NOTE | 2019-04-17 07:42 | Pulmonology Progress Note ---
<Nicho Vazquez - Last Filed: 04/17/19 12:01> Date of Encounter: 04/17/19 Time of Encounter: 07:42 Subjective Principal diagnosis: Aortic aneurysm Interval history: The patient is a 78-year-old male with past medical history of high blood pressure, duodenal ulcer, thyroid disease, gout, asthma, with a significant past medical history of abdominal aortic aneurysm with repair graft placed by Dr. 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 Currently on clopidogrel was recently linda ricardo on Eliquis due to atrial fibrillation. Patient developed severe back pain yesterday on April 16 and had a syncopal episode at home was brought to the ER and found to be hemodynamically unstable with blood pressures as low as 50/30 noted on the monitor. Emergent vascular surgery consult and consult to ICU/critical care were placed in the ED, the patient was given TXA, FFP, in the ED along with 3 units of trauma blood, 3 L of normal saline, a unit albumin. Patient began having worsening pain and was developing nausea and vomiting, in the setting of aneurysm versus concern for duodenal perforation the decision was made at that time for emergent intubation for airway protection. The patient and family verbalized their consent to this procedure and intubation was performed by resident physician in the ED. Initially 7.5 tube was attempted but could not be passed to significant airway edema. The tube was withdrawn and the resident was able to pass a 7.0 endotracheal tube under glide scope visualization. Patient tolerated the procedure well was noted to have a small right mainstem intubation, the tube was withdrawn and verified to be in the correct position. Patient was taken emergently to the OR by Dr. Howe where he removed 1 L of fluid from the patient's retroperitoneum. However the aneurysm graft and sac appear to be in good condition and did not require further in tervention. The patient was transferred to the care of ICU for further evaluation and management. Upon my initial evaluation the patient is intubated, sedated mechanically ventilated, his vitals are within normal limits, his skin is pink, warm, dry, good peripheral pulses, there is a holosystolic murmur noted to cardiopulmonary auscultation otherwise unremarkable exam. His abdominal incision is clean, dry, well dressed, minimal amount of blood noted on the abdominal dressing. There is no peripheral edema appreciated. Assessment and plan: Mechanically ventilated. Continue fentanyl/propofol/Precedex drips Elevated white blood cell count -Continue to monitor, antibiotics plus cultures if repeat not improved Acute kidney injury: Continue to monitor, patient has received significant fluids, likely prerenal due to significant hypotension in the setting of hemorrhagic shock HYPOCALCEMIA: Replaced, continue to monitor Gastric ulceration: Continue Protonix, hold EGD at this time Anticoagulation: EPCDs Objective PUL Vital signs: Last Vital Signs Temp 98 F 04/17/19 04:00 Pulse 97 04/17/19 07:00 Resp 22 04/17/19 07:00 BP 100/55 04/17/19 07:00 Pulse Ox 92 04/17/19 07:00 Ventilator Settings Ventilator Settings: Ventilator Settings, Last 8 Hours Ventilator Tidal Volume 500 Setting Ventilator Tidal Volume 500 Setting Ventilator Tidal Volume 500 Setting Ventilator Tidal Volume 500 Setting Ventilator Tidal Volume 500 Setting Ventilator Tidal Volume 500 Setting Ventilator Tidal Volume 500 Setting Ventilator Tidal Volume 500 Setting Ventilator Tidal Volume 500 Setting Ventilator Tidal Volume 500 Setting Ventilator Tidal Volume 500 Setting Ventilator Tidal Volume 500 Setting Ventilator Respiratory Rate 16 Setting Ventilator Respiratory Rate 16 Setting Ventilator Respiratory Rate 16 Setting Ventilator Respiratory Rate 14 Setting Ventilator Respiratory Rate 16 Setting Ventilator Respiratory Rate 16 Setting Ventilator Respiratory Rate 16 Setting Ventilator Respiratory Rate 16 Setting Ventilator Respiratory Rate 16 Setting Ventilator Respiratory Rate 16 Setting Ventilator Respiratory Rate 16 Setting Ventilator Respiratory Rate 16 Setting Actual Respiratory Rate 22 Actual Respiratory Rate 22 Actual Respiratory Rate 20 Actual Respiratory Rate 19 Actual Respiratory Rate 18 Actual Respiratory Rate 16 Actual Respiratory Rate 20 Actual Respiratory Rate 21 Actual Respiratory Rate 21 Actual Respiratory Rate 18 Actual Respiratory Rate 17 Positive End Expiratory 5 Pressure Positive End Expiratory 5 Pressure Positive End Expiratory 5 Pressure Positive End Expiratory 5 Pressure Positive End Expiratory 5 Pressure Positive End Expiratory 5 Pressure Positive End Expiratory 5 Pressure Positive End Expiratory 5 Pressure Positive End Expiratory 5 Pressure Positive End Expiratory 5 Pressure Positive End Expiratory 5 Pressure Positive End Expiratory 5 Pressure Peak Inspiratory Airway 7 Pressure Peak Inspiratory Airway 9.4 Pressure Peak Inspiratory Airway 15 Pressure Peak Inspiratory Airway 13 Pressure Peak Inspiratory Airway 15 Pressure Peak Inspiratory Airway 17 Pressure Peak Inspiratory Airway 11 Pressure Peak Inspiratory Airway 12 Pressure Peak Inspiratory Airway 15 Pressure Peak Inspiratory Airway 11 Pressure Peak Inspiratory Airway 16 Pressure Results - Laboratory Findings CBC and BMP: 04/17/19 04:26 04/17/19 04:26 ABG ABG pH 7.34 pH Units (7.32-7.45) 04/17/19 04:29 ABG pCO2 45 mmHg (35-45) 04/17/19 04:29 ABG pO2 77 mmHg (85-104) L 04/17/19 04:29 ABG O2 Saturation 94 % (95-98) L 04/17/19 04:29 PT/INR, D-dimer PT 13.6 Seconds (9.4-12.1) H 04/17/19 04:26 Abnormal lab findings: Abnormal lab results WBC 18.8 K/mcL (4.3-11.1) H 04/17/19 04:26 RBC 3.34 M/mcL (4.19-5.50) L 04/17/19 04:26 Hgb 10.9 g/dL (12.9-16.9) L 04/17/19 04:26 Hct 32.4 % (37.5-50.1) L 04/17/19 04:26 MCV 102.6 fL (83.0-100.0) H 04/16/19 11:35 RDW 17.7 % (11.5-14.5) H 04/17/19 04:26 Plt Count 112 K/mcL (140-400) L 04/17/19 04:26 Band Neutrophils % 6.0 % (0-4) H 04/16/19 11:35 Neutrophils # 15.4 K/mcL (1.6-8.9) H 04/17/19 04:26 Lymphocytes # 0.4 K/mcL (0.6-4.6) L 04/16/19 19:32 Monocytes # 2.5 K/mcL (0.0-1.3) H 04/17/19 04:26 Reactive Lymphocytes Present (Not Present) A 04/16/19 11:35 PT 13.6 Seconds (9.4-12.1) H 04/17/19 04:26 ABG pH 7.30 pH Units (7.32-7.45) L D 04/16/19 20:23 ABG pCO2 51 mmHg (35-45) H 04/16/19 20:23 ABG pO2 77 mmHg (85-104) L 04/17/19 04:29 ABG Total CO2 27 mEq/L (20-26) H 04/16/19 20:23 ABG O2 Saturation 94 % (95-98) L 04/17/19 04:29 ABG Base Excess -6 mEq/L (-2 to 3) L 04/16/19 16:56 VBG pCO2 36 mmHg (41-51) L 04/16/19 12:04 VBG pO2 129 mmHg (25-50) H 04/16/19 12:04 VBG HCO3 19 mEq/L (21-27) L 04/16/19 12:04 Chloride 111 mEq/L (98-107) H 04/17/19 04:26 Carbon Dioxide 21 mEq/L (23-29) L 04/17/19 04:26 BUN 24 mg/dL (8-23) H 04/17/19 04:26 Creatinine 1.42 mg/dL (0.70-1.30) H 04/17/19 04:26 Est GFR ( Amer) 59 (> 60) L 04/17/19 04:26 Est GFR (Non-Af Amer) 48 (> 60) L 04/17/19 04:26 Glucose 148 mg/dL (70-105) H 04/17/19 04:26 POC Glucose 147 mg/dL (70-99) H 04/16/19 23:59 Calculated Osmolality 305 (280-300) H 04/17/19 04:26 Lactic Acid 4.4 mmol/L (0.5-2.2) H* 04/16/19 12:01 Calcium 7.4 mg/dL (8.6-10.3) L 04/17/19 04:26 Venous Ioniz Calcium 1.03 mmol/L (1.15-1.35) L 04/16/19 20:11 Phosphorus 5.0 mg/dL (2.7-4.5) H 04/16/19 16:38 Alkaline Phosphatase 30 Units/L (34-104) L 04/17/19 04:26 Serum Total Protein 5.2 g/dL (6.4-8.9) L 04/17/19 04:26 Globulin 1.7 g/dL (2.4-3.5) L 04/17/19 04:26 Albumin/Globulin Ratio 2.3 (1.1-2.2) H 04/16/19 16:38 Urine Protein 30 mg/dL (Neg-Trace) H 04/16/19 12:08 Urine Blood Small (Negative) H 04/16/19 12:08 Urine Microscopic RBC 5-15 per hpf (0-3) H 04/16/19 12:08 Ur Squamous Epith Cells Many per lpf (None-Few) H 04/16/19 12:08 Crossmatch See Detail 04/16/19 12:01 MTS Gel Crossmatch See Detail 04/16/19 12:01 - Microbiology Findings Microbiology Findings: Microbiology, Last 48 Hours 04/16/19 12:01 Blood Culture - Preliminary Peripheral Venipuncture Culture is incubating and being continuously m onitored for growth. Final report to follow. 04/16/19 11:35 Blood Culture - Preliminary Peripheral Venipuncture Culture is incubating and being continuously monitored for growth. Final report to follow. - Clinical Findings Intake & Output: Intake & Output 04/16/19 04/16/19 04/17/19 15:59 23:59 07:59 Intake Total 1400 / 1793.1 393.1 / 1793.1 1219.1 / 1219.1 Output Total 3150 / 3375 400 / 400 Balance 1400 / -1581.9 -2756.9 / -1581.9 819.1 / 819.1 Weight 110.132 kg 112 kg 111.8 kg - VTE Documentation of Mechanical Device: Graduated compression elastic hosiery Consult Discharge Plan - Plan Referrals: Kelvin Loya DO [Primary Care Provider] - <Eliseo Hartmann - Last Filed: 04/17/19 14:13> Date of Encounter: 04/17/19 Objective PUL Vital signs: Last Vital Signs Temp 99.6 F 04/17/19 11:55 Pulse 112 04/17/19 13:00 Resp 24 04/17/19 13:00 BP 148/61 04/17/19 13:00 Pulse Ox 92 04/17/19 13:00 Ventilator Settings Ventilator Settings: Ventilator Settings, Last 8 Hours Ventilator Tidal Volume 500 Setting Ventilator Tidal Volume 500 Setting Ventilator Tidal Volume 500 Setting Ventilator Tidal Volume 500 Setting Ventilator Tidal Volume 500 Setting Ventilator Tidal Volume 500 Setting Ventilator Tidal Volume 500 Setting Ventilator Tidal Volume 500 Setting Ventilator Respiratory Rate 16 Setting Ventilator Respiratory Rate 16 Setting Ventilator Respiratory Rate 16 Setting Ventilator Respiratory Rate 16 Setting Ventilator Respiratory Rate 16 Setting Ventilator Respiratory Rate 16 Setting Ventilator Respiratory Rate 16 Setting Ventilator Respiratory Rate 16 Setting Actual Respiratory Rate 25 Actual Respiratory Rate 25 Actual Respiratory Rate 26 Actual Respiratory Rate 24 Actual Respiratory Rate 20 Actual Respiratory Rate 17 Actual Respiratory Rate 22 Actual Respiratory Rate 19 Actual Respiratory Rate 22 Positive End Expiratory 5 Pressure Positive End Expiratory 5 Pressure Positive End Expiratory 5 Pressure Positive End Expiratory 5 Pressure Positive End Expiratory 5 Pressure Positive End Expiratory 5 Pressure Positive End Expiratory 5 Pressure Positive End Expiratory 5 Pressure Positive End Expiratory 5 Pressure Peak Inspiratory Airway 10 Pressure Peak Inspiratory Airway 14 Pressure Peak Inspiratory Airway 14 Pressure Peak Inspiratory Airway 12 Pressure Peak Inspiratory Airway 9.5 Pressure Peak Inspiratory Airway 10 Pressure Peak Inspiratory Airway 16 Pressure Peak Inspiratory Airway 8.3 Pressure Peak Inspiratory Airway 7 Pressure Results - Laboratory Findings CBC and BMP: 04/17/19 12:30 04/17/19 12:30 ABG ABG pH 7.34 pH Units (7.32-7.45) 04/17/19 04:29 ABG pCO2 45 mmHg (35-45) 04/17/19 04:29 ABG pO2 77 mmHg (85-104) L 04/17/19 04:29 ABG O2 Saturation 94 % (95-98) L 04/17/19 04:29 PT/INR, D-dimer PT 13.6 Seconds (9.4-12.1) H 04/17/19 04:26 Abnormal lab findings: Abnormal lab results WBC 18.8 K/mcL (4.3-11.1) H 04/17/19 04:26 RBC 3.34 M/mcL (4.19-5.50) L 04/17/19 04:26 Hgb 10.4 g/dL (12.9-16.9) L 04/17/19 12:30 Hct 32.0 % (37.5-50.1) L 04/17/19 12:30 MCV 102.6 fL (83.0-100.0) H 04/16/19 11:35 RDW 17.7 % (11.5-14.5) H 04/17/19 04:26 Plt Count 112 K/mcL (140-400) L 04/17/19 04:26 Band Neutrophils % 6.0 % (0-4) H 04/16/19 11:35 Neutrophils # 15.4 K/mcL (1.6-8.9) H 04/17/19 04:26 Lymphocytes # 0.4 K/mcL (0.6-4.6) L 04/16/19 19:32 Monocytes # 2.5 K/mcL (0.0-1.3) H 04/17/19 04:26 Reactive Lymphocytes Present (Not Present) A 04/16/19 11:35 PT 13.6 Seconds (9.4-12.1) H 04/17/19 04:26 ABG pH 7.30 pH Units (7.32-7.45) L D 04/16/19 20:23 ABG pCO2 51 mmHg (35-45) H 04/16/19 20:23 ABG pO2 77 mmHg (85-104) L 04/17/19 04:29 ABG Total CO2 27 mEq/L (20-26) H 04/16/19 20:23 ABG O2 Saturation 94 % (95-98) L 04/17/19 04:29 ABG Base Excess -6 mEq/L (-2 to 3) L 04/16/19 16:56 VBG pCO2 36 mmHg (41-51) L 04/16/19 12:04 VBG pO2 129 mmHg (25-50) H 04/16/19 12:04 VBG HCO3 19 mEq/L (21-27) L 04/16/19 12:04 Chloride 109 mEq/L (98-107) H 04/17/19 12:30 Carbon Dioxide 21 mEq/L (23-29) L 04/17/19 04:26 BUN 32 mg/dL (8-23) H 04/17/19 12:30 Creatinine 2.01 mg/dL (0.70-1.30) H 04/17/19 12:30 Est GFR ( Amer) 39 (> 60) L 04/17/19 12:30 Est GFR (Non-Af Amer) 32 (> 60) L 04/17/19 12:30 Glucose 135 mg/dL (70-105) H 04/17/19 12:30 POC Glucose 147 mg/dL (70-99) H 04/16/19 23:59 Calculated Osmolality 307 (280-300) H 04/17/19 12:30 Lactic Acid 4.4 mmol/L (0.5-2.2) H* 04/16/19 12:01 Calcium 7.7 mg/dL (8.6-10.3) L 04/17/19 12:30 Venous Ioniz Calcium 1.03 mmol/L (1.15-1.35) L 04/16/19 20:11 Phosphorus 5.0 mg/dL (2.7-4.5) H 04/16/19 16:38 Alkaline Phosphatase 30 Units/L (34-104) L 04/17/19 04:26 Serum Total Protein 5.2 g/dL (6.4-8.9) L 04/17/19 04:26 Globulin 1.7 g/dL (2.4-3.5) L 04/17/19 04:26 Albumin/Globulin Ratio 2.3 (1.1-2.2) H 04/16/19 16:38 Urine Protein 30 mg/dL (Neg-Trace) H 04/16/19 12:08 Urine Blood Small (Negative) H 04/16/19 12:08 Urine Microscopic RBC 5-15 per hpf (0-3) H 04/16/19 12:08 Ur Squamous Epith Cells Many per lpf (None-Few) H 04/16/19 12:08 Crossmatch See Detail 04/16/19 12:01 MTS Gel Crossmatch See Detail 04/16/19 12:01 - Microbiology Findings Microbiology Findings: Microbiology, Last 48 Hours 04/16/19 12:01 Blood Culture - Preliminary Peripheral Venipuncture Culture is incubating and being continuously monitored for growth. Final report to follow. 04/16/19 11:35 Blood Culture - Preliminary Peripheral Venipuncture Culture is incubating and being continuously monitored for growth. Final report to follow. - Clinical Findings Intake & Output: Intake & Output 04/16/19 04/17/19 04/17/19 23:59 07:59 15:59 Intake Total 393.1 / 1793.1 1219.1 / 2555.1 1336 / 2555.1 Output Total 3150 / 3375 505 / 575 70 / 575 Balance -2756.9 / -1581.9 714.1 / 1980.1 1266 / 1980.1 Weight 112 kg 111.8 kg - Attending Attestation I examined this patient and my medical decision-making was reviewed with the Resident Physician. I agree with the documented findings, disposition and treatment plan as described except to the extent set forth below. Patient seen and examined. Labs, radiology, chart personally reviewed. Agree with resident's history and physical, assessment, plan with following comments: BLOCK SEALER: Patient does not follows commands, patient is heavily sedated and will start to wean off sedation to and came out put and he is hard of hearing with families help at the bedside hopefully he will respond and be more cooperative. Pulmonary: Acceptable oxygenation and ventilation. Starting spontaneous breathing trial and I am hoping we will be able to extubate patient. Since patient was somewhat difficult to intubate will check cuff leak before extubation. I have reviewed his ABG which is acceptable and no significant abnormalities and patient is tolerating treatment well. Cardiovascular: stable GI: Nutrition per dietary and GI prophylaxis per routine. Patient postop plan he will remain nothing by mouth. I do not this from the patient needs to have endoscopy at this time and that can be done more as an elective procedure as long as patient hemoglobin stable and no evidence of active bleed. Heme: DVT prophylaxis per routine. Patient has significant retroperitoneal bleed and appreciate vascular surgeon help. Patient should not be on anticoagulation which unfortunately put him at risk for the thromboembolic diseases. ID: Postop Renal; urine out put and renal function reviewed Endorcine: blood glucose is monitored Lines: all lines checked and no evidence of infections Skin: skin care to prevent pressure ulcers per nursing routine care Dispo: ICU Code: Full. Prognosis. Guarded. Discussed with family at bedside. I spent 40 min of Critical Care time with this patient. It involved decision making of high complexity to assess, manipulate, and support vital organ system failure and/or to prevent further life threatening deterioration of the patient's condition. The time involved in the performance of separately reportable procedures was not counted toward critical care time.
[2019-04-17] MEDS ORDERED: Artificial Tears SOLN 15 ML BOTTLE BOTH EYES PRN (07:56)
[2019-04-17] MEDS ORDERED: *HR* Labetalol 20 MG/4 ML SYRINGE IVP PRN (07:56)
[2019-04-17] MEDS ORDERED: Ringers Solution, Lactated 1,000 ML IVC SCH (07:56)
[2019-04-17] MEDS ORDERED: Naloxone 0.4 MG/ML INJ IVP PRN (07:56)
[2019-04-17] MEDS ORDERED: Ondansetron 4 MG/2 ML VIAL IVP PRN (07:56)
[2019-04-17] MEDS: Chlorhexidine Rinse 15 ML MOUTHWASH MM SCH ×2 (09:35→19:57)
--- NOTE | 2019-04-17 11:05 | Vascular/[facility] Progress Note ---
Date of Encounter: 04/17/19 Time of Encounter: 11:02 - Assessment and plan (1) Nontraumatic retroperitoneal hematoma Current Visit: Yes Status: Acute Patient is postoperative day #1 following exploratory laparotomy and evacuation of retroperitoneal hematoma. Patient has been essentially hemodynamically stable overnight. Patient is on ventilator. Patient has drainage through NG tube suggesting upper GI bleeding. The cystotomy further evaluated. Of note the BUN/creatinine is elevated this morning as compared to his immediate pre-and postoperative values. This is not surprising due to the patient's episodes of hypotension. (2) Endoleak post (EVAR) endovascular aneurysm repair Current Visit: Yes Status: Acute Recurrent type II endoleak. No immediate plans for treatment of this issue at this time. This may be addressed in the future via endovascular means via coiling. Qualifiers: Encounter type: subsequent encounter Qualified Code(s): T82.330D - Leakage of aortic (bifurcation) graft (replacement), subsequent encounter (3) Atrial fibrillation Current Visit: No Status: Chronic Patient has history of atrial fibrillation. Due to the life-threatening retroperitoneal hematoma the patient may no longer use oral anticoagulants. Plavix will be on hold indefinitely. Qualifiers: Atrial fibrillation type: chronic Qualified Code(s): I48.2 - Chronic atrial fibrillation - Subjective Interval history: The patient is in ICU bed #1. He is postoperative day #1 following exploratory laparotomy and drainage of retroperitoneal hematoma. He is intubated, mech anically ventilated, and sedated. He responds to manipulation but is not awake. Overall he had an uneventful night. The only new findings are a dark, black fluid draining from his nasogastric tube. He does have a history of duodenal ulcer that was evaluated earlier this year by GI medicine. He is tentatively going to be evaluated for possible upper GI endoscopy for later today the patient is on ulcer prophylaxis medication. No further transfusions overnight. The patient has required brief use of levophed. According to nursing staff when the patient awakens and is stimulated his blood pressure is elevated. Plans for extubation are on hold pending the upper GI evaluation. Vital Signs, Last 4 Hours Temp Pulse Resp BP Pulse Ox 04/17/19 10:00 103 24 114/61 92 04/17/19 09:04 20 91 04/17/19 09:00 98 20 93/54 91 04/17/19 08:00 102 22 83/51 90 04/17/19 07:49 99.2 F 04/17/19 07:10 20 95 - Physical Examination General: Present: Other (Intubated, mechanically ventilated, and sedated.) HEENT: Present: Atraumatic, Normocephaly Neck: Absent: JVD Cardiac: Present: Reg Rate and Rhythm, No Murmur Lungs: Present: Normal Breath Sounds Neuro: Present: Other (Sedated) Vascular: Present: Normal capillary refill, Color/Temperature (Normal color and temperature of feet.), Surgical incisions (Abdominal surgical dressing is dry and intact.), Other (The patient has Doppler signals 2 at each ankle.). Absent: Cyanosis, Edema Abdomen: Present: Soft, Non-tender, Other (The patient has hypoactive bowel sounds. There is no periumbilical or flank ecchymosis at this time.). Absent: Masses Skin: Present: No rashes noted on visualized skin - VTE Documentation of Mechanical Device: Graduated compression elastic hosiery Results 04/17/19 04:26 04/17/19 04:26 Lab Results, Last 24 hours 04/16/19 04/16/19 04/16/19 11:35 11:35 11:35 WBC 10.9 Hgb 11.3 L Hct 35.4 L Plt Count 178 INR 1.4 APTT 27.7 Sodium 137 Potassium 3.9 Chloride 102 Carbon Dioxide 20 L BUN 14 Creatinine 1.07 Glucose 263 H Calcium 8.3 L Magnesium Total Bilirubin 0.7 AST 14 ALT 10 Alkaline Phosphatase 52 Troponin I < 0.03 Amylase 49 Lipase 22 04/16/19 04/16/19 04/16/19 13:12 14:48 16:38 WBC Hgb 8.9 L D 10.3 L Hct 28.2 L 32.0 L Plt Count INR APTT Sodium 141 Potassium 4.5 Chloride 107 Carbon Dioxide 24 BUN 18 Creatinine 1.13 Glucose 190 H Calcium 7.2 L Magnesium 1.9 Total Bilirubin 0.8 AST 16 ALT 9 Alkaline Phosphatase 40 Troponin I Amylase Lipase 04/16/19 04/16/19 04/16/19 16:38 16:38 19:32 WBC 12.7 H Hgb 10.5 L Hct 32.1 L Plt Count 103 L INR 1.2 1.1 APTT 30.3 Sodium Potassium Chloride Carbon Dioxide BUN Creatinine Glucose Calcium Magnesium Total Bilirubin AST ALT Alkaline Phosphatase Troponin I Amylase Lipase 04/16/19 04/16/19 04/17/19 19:32 19:32 01:25 WBC 14.2 H Hgb 12.9 D 11.1 L D Hct 38.9 33.1 L Plt Count 101 L INR APTT Sodium 143 Potassium 4.1 Chloride 109 H Carbon Dioxide 25 BUN 17 Creatinine 0.96 Glucose 137 H Calcium 7.9 L Magnesium Total Bilirubin AST ALT Alkaline Phosphatase Troponin I Amylase Lipase 04/17/19 04/17/19 04/17/19 04:26 04:26 04:26 WBC 18.8 H Hgb 10.9 L Hct 32.4 L Plt Count 112 L INR 1.2 APTT 29.5 Sodium 144 Potassium 4.4 Chloride 111 H Carbon Dioxide 21 L BUN 24 H Creatinine 1.42 H Glucose 148 H Calcium 7.4 L Magnesium Total Bilirubin 0.5 AST 19 ALT 10 Alkaline Phosphatase 30 L Troponin I Amylase Lipase Consult Discharge Plan - Plan Referrals: Kelvin Loya DO [Primary Care Provider] -
[2019-04-17] MEDS: Budesonide/Formoterol 160/4.5 1 PUFF INH IH SCH ×2 (11:07→21:57)
[2019-04-17] MEDS ORDERED: Calcium Gluconate 2,000 MG in 0.9 % Sodium Chloride 100 ML IVPB ONE (11:25)
--- NOTE | 2019-04-17 11:45 | Electrocardiograph Report ---
[facility] Test Date: 2019-04-16 Pat Name: Arnold Hernandez Department: [id number] Room: 01 Gender: M Material Clerk: : 1940 Requested By: Mariposa See Order Number: [id number] Reading MD: Claudio Mitchell Measurements Intervals [place] Rate: 93 P: 9 [place]: 148 QRS: -4 QRSD: 92 T: 73 QT: 392 QTc: 488 Interpretive Statements Sinus rhythm Inferior infarct, Lateral leads are also involved Electronically Signed On 04-17-2019 11:44:20 EDT by Claudio Mitchell
[2019-04-17] MEDS: Norepinephrine 4 MG in 0.9 % Sodium Chloride 250 ML IVC SCH (12:21)
[2019-04-17 12:40] LABS: Hemoglobin 10.4 g/dL (12.9-16.9)
[2019-04-17 12:59] LABS: Calcium 7.7 mg/dL (8.6-10.3); Potassium 4.4 mEq/L (3.5-5.1)
--- NOTE | 2019-04-17 14:33 | Internal Med Progress Note ---
Hospitalist Progress Note - Encounter Date of Encounter: 04/17/19 Time of Encounter: 08:30 - Subjective Interval History: Patient underwent exploratory laparotomy yesterday evening and has stabilized. He was mechanical ventilator overnight and plans were to attempt extubation today. Patient weaned off the ventilator and exhibited per pulmonary recommen dations today. He seems be tolerating this well at this time. We will trend his labs and monitor for any further bleeding. Of note, he did have some dark brown/black drainage from his NG tube. Will monitor for any further bleeding and/or GI blood loss. If necessary, he may EGD given his history of duodenal ulcer in November of this year. However, he is maintaining hemodynamic stability and has not had any further evidence of significant bleeding. Of note, his kidney function is impaired likely as a direct result to his hemorrhagic shock he experienced yesterday/last evening. We will continue monitoring his renal function and consult nephrology as well. His white blood cell count is elevated and likely reactive in nature secondary to surgery, massive transfusion, and fluid shifts encountered in surgery and after massive transfusion. However, we will empirically cover him for possible GI cruz source of infection given his history of duodenal ulcer and retroperitoneal bleed. I discussed with and updated his . - Exam Vitals: Temp Pulse Resp BP Pulse Ox 99.6 F 112 24 148/61 92 04/17/19 11:55 04/17/19 13:00 04/17/19 13:00 04/17/19 13:00 04/17/19 13:00 Exam: General: gerneralized edema; intubated, sedated, arousable, and responding appropriately. HEENT: ETT/OG in place chest: CTA B with diminished BS at bases, CTA otherwise, RRR-borderline tachycardic, grade 1 murmur Abdomen: clean/dry incision; +BS Ext: diffuse edema; equal pulses Neuro: + purposeful movements, even on sedation Skin: pink, warm, dry - Assessment and Plan (1) Hemorrhagic shock Current Visit: Yes Status: Resolved Assessment and Plan: 1. S/P fluid and blood product reuscistation in ER and surgery per Dr. Fishman. 2. Agree with Dr. Fishman that patient should avoid anticoagulation and Plavix lifelong due to life theratening hemorrhage. 3. Monitor H/H, hemodynamics, and transfuse as necessary. (2) Duodenal ulcer Current Visit: Yes Status: Chronic Assessment and Plan: 1. Protonix drip. 2. Monitor H/H and check stool hemoccult. 3. Cancel EGD for now; if above significant, will proceed with EGD. 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 Per. Dr. Fishman. (4) Atrial fibrillation Current Visit: Yes Status: Chronic Assessment and Plan: 1. Resume Carvedilol today, Cardizem as in the next day or two. 2. Monitor on telemetry. 3. No anti-coagulation. (5) DVT prophylaxis Current Visit: Yes Status: Acute Assessment and Plan: 1. EPCD's. - Time Spent with Patient Total time spent is greater than 50% in coordination of care (as documented) at patient's floor/unit and/or counseling patient: 25 - 35 minutes Internal Medicine: Result - Labs CBC & Chem 7: 04/17/19 12:30 04/17/19 12:30 Labs: Short CBC 04/16/19 04/16/19 04/16/19 Range/Units 14:48 16:38 19:32 WBC 12.7 H 14.2 H (4.3-11.1) K/mcL Hgb 10.3 L 10.5 L 12.9 D (12.9-16.9) g/dL Hct 32.0 L 32.1 L 38.9 (37.5-50.1) % Plt Count 103 L 101 L (140-400) K/mcL Neutrophils # 9.7 H 11.5 H (1.6-8.9) K/mcL 04/17/19 04/17/19 04/17/19 Range/Units 01:25 04:26 12:30 WBC 18.8 H (4.3-11.1) K/mcL Hgb 11.1 L D 10.9 L 10.4 L (12.9-16.9) g/dL Hct 33.1 L 32.4 L 32.0 L (37.5-50.1) % Plt Count 112 L (140-400) K/mcL Neutrophils # 15.4 H (1.6-8.9) K/mcL BMP 04/16/19 04/16/19 04/17/19 16:38 19:32 04:26 Sodium 141 143 144 Potassium 4.5 4.1 4.4 Chloride 107 109 H 111 H Carbon Dioxide 24 25 21 L BUN 18 17 24 H Creatinine 1.13 0.96 1.42 H Glucose 190 H 137 H 148 H Calcium 7.2 L 7.9 L 7.4 L 04/17/19 12:30 Sodium 144 Potassium 4.4 Chloride 109 H Carbon Dioxide 23 BUN 32 H Creatinine 2.01 H Glucose 135 H Calcium 7.7 L Liver Function 04/16/19 04/17/19 Range/Units 16:38 04:26 Total Bilirubin 0.8 0.5 (0.3-1.0) mg/dL AST 16 19 (13-39) Units/L ALT 9 10 (7-52) Units/L Alkaline Phosphatase 40 30 L (34-104) Units/L Albumin 3.6 3.5 (3.5-5.7) g/dL - ABG Interpretation ABG results: ABG ABG pH 7.34 pH Units (7.32-7.45) 04/17/19 04:29 ABG pCO2 45 mmHg (35-45) 04/17/19 04:29 ABG pO2 77 mmHg (85-104) L 04/17/19 04:29 ABG O2 Saturation 94 % (95-98) L 04/17/19 04:29 PT/INR, D-dimer PT 13.6 Seconds (9.4-12.1) H 04/17/19 04:26 - Impressions Impressions Chest X-Ray 04/16/19 14:30 IMPRESSION: Endotracheal tube tip is within the proximal right mainstem bronchus. Recommend retraction of at least 4-5 cm. Slightly increasing right basilar opacities likely atelectasis. The findings were sent to the Radiology Results Communication [facility] at 3:40 pm on 04/16/2019to be communicated to a licensed caregiver. D/ / 04/16/2019 15:41:34 Shaniqua Aguirre MD / [facility] Interpreting Provider: Shaniqua Aguirre MD Chest X-Ray 04/16/19 18:44 IMPRESSION: Endotracheal tube has been slightly retracted and is now in the distal trachea above the kimberly. Enteric tube tip projects off the bottom of the image. Slight interval worsening of bilateral airspace disease which could represent atelectasis, pneumonia or edema. D/ / Aristeo Carter MD / Aristeo Carter MD Interpreting Provider: Aristeo Carter MD - VTE Documentation of Mechanical Device: Graduated compression elastic hosiery Consult Discharge Plan - Plan Referrals: Kelvin Loya DO [Primary Care Provider] - (3) Endoleak post (EVAR) endovascular aneurysm repair Qualifiers: Encounter type: subsequent encounter Qualified Code(s): T82.330D - Leakage of aortic (bifurcation) graft (replacement), subsequent encounter (4) Atrial fibrillation Qualifiers: Atrial fibrillation type: chronic Qualified Code(s): I48.2 - Chronic atrial fibrillation
--- NOTE | 2019-04-17 15:18 | Nephrology Consult Note ---
Date of Encounter: 04/17/19 Time of Encounter: 15:16 Assessment and Plan (1) BRENDA (acute kidney injury) Current Visit: Yes Status: Acute No previous CKD. GFR's greater than 60. GFR is 32 today. BRENDA workup ordered however most likely related to hemorrhagic shock. Urine NA 21, likely pre-renal continue IVF. Avoid nephrotoxins and renal dose all medications. Strict I/O (2) Retroperitoneal hemorrhage Current Visit: Yes Status: Acute Stable, per vascular. 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 Hernandez is a 78 year old male who presented to ED with left lower back pain. PMH: atrial fibrillation, COPD, hyperlipidemia, hypertension, thyroid disease, and a AAA. He was hypotensive and hypertensive in the ED and was taken to the OR by vascular surgery. Found to have a large retroperitoneal hematoma which was evacuated. Per EMR recieved 3 units PRBCs and 1 pack of platelets. Unsure if trauma blood was given in ED or OR. Patient has never seen a zone supervisor firearms in the past. He has never been told he has CKD. He does have a brother that was CKD IV/V and was going to be started on HD but he before starting. He thinks that his CKD was related to uncontrolled DM. No chronic use of NSAIDS. He lives at home with his . Denies etoh, tobacco us or illicit drug use. Past Med Surg Social Fam HX - Past Medical History Medical history: aortic aneurysm, atrial fibrillation, COPD, hyperlipidemia, hypertension, thyroid disease Additional medical history: gout Psychiatric history: no psych history - Past Surgical History Surgical History: orthopedic, other, vascular surgery, other Additional surgical history: AAA, left ear surgery,RTK, EGD 2016 - Social History Smoking Status: Former smoker Smokeless Tobacco Status: No Alcohol use: none, rarely Drug use: none - Family History Father Family Member Ethnicity: Non- Living Status: Hx Family Cancer: Yes (Multiple myeloma) Mother Family Member Ethnicity: Non- Living Status: Hx Family Endocrine Disorder: Yes (Liver disease) Brother Family Member Ethnicity: Non- Living Status: Hx Family Cardiac Disorders: Yes (HD) Hx Family Endocrine Disorder: Yes (DM) Sister History Unknown: Yes Family Member Ethnicity: Non- Living Status: Still Living Medications and Allergies Garlic 1,000 mg PO QPM 11/17/15 [History] Allopurinol [Zyloprim] 300 mg PO QPM 04/03/17 [History] Levothyroxine [Synthroid] 75 mcg PO QAM 04/03/17 [History] Clopidogrel [Plavix] 75 mg PO DAILY #30 tablet 04/05/17 [Rx] dilTIAZem HCl [Diltiazem HCl] 120 mg PO QPM 06/25/17 [History] Loratadine [Allergy Relief] 10 mg PO DAILY 10/27/18 [History] Carvedilol 3.125 mg PO BID 10/28/18 [History] [place]-3/Dha/Epa/Fish Oil [[facility] Fish Oil 1,000 mg Softgel] 1 cap PO QPM 10/28/18 [History] Apixaban [Eliquis] 5 mg PO BID 04/17/19 [History] Cyanocobalamin (Vitamin B-12) [Vitamin B-12] 1,000 mcg PO DAILY 04/17/19 [History] Ferrous Sulfate [Iron] 325 mg PO 2100 04/17/19 [History] Glucosamine HCl 1,500 mg PO BID 04/17/19 [History] Lisinopril [Zestril] 20 mg PO DAILY 04/17/19 [History] Omeprazole 20 mg PO DAILY 04/17/19 [History] Allergy/AdvReac Type Severity Reaction Status Date / Time No Known Allergies Allergy Verified 11/15/18 16:54 Review of Systems All Systems review (narrative): The remainder of the systems are negative. Constitutional: no chills, no fatigue, no fever(s) Cardiovascular: no chest pain, no dyspnea, no edema, no irregular heart rhythm Gastrointestinal: no diarrhea, no nausea, no vomiting Genitourinary Male: no hematuria, no urinary frequency, no urinary hesitancy, no urinary urgency Exam - Vital Signs Vital signs: Initial Vital Signs Temp Pulse Resp BP Pulse Ox 98.2 F 104 19 73/32 92 04/16/19 11:37 04/16/19 11:37 04/16/19 11:37 04/16/19 11:37 04/16/19 11:37 Vital Signs - Last 8 Hours Temp Pulse Resp BP Pulse Ox 04/17/19 13:00 112 24 148/61 92 04/17/19 12:00 111 26 130/65 94 04/17/19 11:55 99.6 F 04/17/19 11:10 26 92 04/17/19 11:00 106 26 129/69 91 04/17/19 10:00 103 24 114/61 92 04/17/19 09:04 20 91 04/17/19 09:00 98 20 93/54 91 04/17/19 08:00 102 22 83/51 90 04/17/19 07:49 99.2 F Intake and Output 04/16/19 04/17/19 04/17/19 23:59 07:59 15:59 Intake Total 393.1 / 1793.1 1219.1 / 2555.1 1336 / 2555.1 Output Total 3150 / 3375 505 / 575 70 / 575 Balance -2756.9 / -1581.9 714.1 / 1980.1 1266 / 1979.1 Intake: IV Fluids 393.1 / 393.1 1219.1 / 2555.1 1336 / 2555.1 FentaNYL (PF) 1,000 MCG In 0.9 31.9 / 31.9 68.1 / 88.1 20 / 88.1 % Sodium Chloride 80 ML @ 50 MCG/HR 5 mls/hr IVC CONT [facility]ETTE Rx #:[id number] Levophed 4 MG In 0.9 % Sodium 0 / 0 12.2 / 38.2 26 / 38.2 Chloride 250 ML @ 8 MCG/MIN 30. 48 mls/hr IVC CONT EVETTE Rx#: [id number] Protonix 40 MG In 0.9 % Sodium 43 / 43 157 / 257 100 / 257 Chloride (Mini-Bag +) 100 ML @ 20 mls/hr IVC .Q5H [facility]ETTE Rx#: [id number] Diprivan 1,000 mg In 100 ml @ 5 48.2 / 48.2 151.8 / 241.8 90 / 241.8 MCG/KG/MIN 3.304 mls/hr IVC . Q24H [facility]ETTE Rx#:[id number] Lactated Ringers 1,000 ML @ 125 270 / 270 730 / 1730 1000 / 1730 mls/hr IVC .Q8H [facility]TE Rx#: [id number] Ancef 2,000 MG In 0.9 % Sodium 100 / 200 100 / 200 Chloride 100 ML @ 200 mls/hr IVPB Q8HR [facility]ETTE Rx#:[id number] Oral 0 / 0 Output: Estimated Blood Loss 1000 / 1000 Urine Amount (Catheter) 300 / 300 Catheter 1850 / 5 375 / 425 50 / 425 Gastric Drainage 130 / 150 20 / 150 Right Nare 0 / 0 Other: Weight 112 kg 111.8 kg Blood Glucose* 138 147 139 Patient Weight 04/17/19 23:59 Weight 111.8 kg - General Appearance General appearance: well-developed, well-nourished EENT: ATNC, hearing intact, vision intact Neck: supple Respiratory: clear Cardiology: edema (non pitting edema noted to bilat upper/lower extremities.), normal S1, normal S2 Gastrointestinal: normoactive bowel sounds, no tenderness, no guarding Integumentary: no rash, warm and dry Neurologic: alert and oriented x3 Musculoskeletal: no deformities, no erythema Psychiatric: mood/affect appropriate, cooperative Results - Lab Results 04/17/19 17:24 04/17/19 12:30 Most recent lab results 04/17/19 04/17/19 04/17/19 04:26 04:29 12:30 ABG pH 7.34 ABG pCO2 45 ABG pO2 77 L ABG HCO3 24 ABG O2 Saturation 94 L Calcium 7.4 L 7.7 L Consult Discharge Plan - Plan Referrals: Kelvin Loya DO [Primary Care Provider] -
[2019-04-17] MEDS: MetroNIDAZOLE 500 MG/100 ML 500 MG/100 ML BAG IVPB SCH ×2 (15:40→21:00)
[2019-04-17 16:26] LABS: Bilirubin,Urine Negative (Negative); Blood,Urine Moderate (Negative); Clarity,Urine Clear (Clear); Color,Urine Yellow (Yellow); Glucose,Urine (UA) Normal (Normal); Ketones,Urine Negative (Negative); Leukocyte Esterase,Urine Negative (Negative); Nitrite,Urine Negative (Negative); PH,Urine 5.5 pH Units (5.0-8.0); Protein,Urine 30 mg/dL (Neg-Trace); Specific Gravity,Urine > 1.030 (1.010-1.025); Urobilinogen,Urine Normal (Normal)
[2019-04-17 16:32] LABS: Bacteria,Urine None Seen per hpf (None-Few); RBC,Urine 50-100 per hpf (0-3); Squamous Epithelial Cell,Urine Many per lpf (None-Few)
[2019-04-17 16:35] LABS: Sodium, Urine 21.3 mEq/L
[2019-04-17 16:48] LABS: Uric Acid 4.8 mg/dL (2.3-7.6)
[2019-04-17 18:23] LABS: Hemoglobin 9.9 g/dL (12.9-16.9)
[2019-04-17] MEDS ORDERED: Acetaminophen 325 MG TABLET PO PRN (20:14)
[2019-04-18] MEDS: Pantoprazole 40 MG in 0.9 % Sodium Chloride Mini Bag 100 ML IVC SCH (02:07)
[2019-04-18] MEDS: Ringers Solution, Lactated 1,000 ML IVC SCH (02:07)
[2019-04-18 04:03] LABS: Basophils % 0.1 %; Hematocrit 26.9 % (37.5-50.1); Hemoglobin 8.7 g/dL (12.9-16.9); Immature Granulocytes % 1.7 % (0-4); Lymphocytes # 1.2 K/mcL (0.6-4.6); Lymphocytes % 8.4 %; Mean Corpuscular HGB Conc 32.3 g/dL (31.6-35.5); Mean Corpuscular Hemoglobin 31.6 pg (28.0-33.3); Mean Corpuscular Volume 97.8 fL (83.0-100.0); Mean Platelet Volume 11.4 fL (9.4-12.4); Monocytes % 20.4 %; Neutrophils # 10.1 K/mcL (1.6-8.9); Platelet Count 101 K/mcL (140-400); Red Blood Count 2.75 M/mcL (4.19-5.50); Red Cell Distribution Width 16.5 % (11.5-14.5); Segmented Neutrophils % 69.4 %; White Blood Count 14.6 K/mcL (4.3-11.1)
[2019-04-18 04:11] LABS: INR 1.3; Prothrombin Time 14.2 Seconds (9.4-12.1)
[2019-04-18 04:22] LABS: BUN/Creatinine Ratio 24 (6-26); Blood Urea Nitrogen 32 mg/dL (8-23); Calcium 7.9 mg/dL (8.6-10.3); Carbon Dioxide 24 mEq/L (23-29); Chloride 109 mEq/L (98-107); Glucose 129 mg/dL (70-105); Osmolality,Calculated 303 (280-300); Potassium 4.2 mEq/L (3.5-5.1); Sodium 142 mEq/L (136-145); eGFR For African Americans > 60 (> 60); eGFR For Non-African Americans 52 (> 60)
[2019-04-18] MEDS: FentaNYL (PF) 1,000 MCG in 0.9 % Sodium Chloride 80 ML IVC SCH (04:24)
[2019-04-18] MEDS: Norepinephrine 4 MG in 0.9 % Sodium Chloride 250 ML IVC SCH (04:24)
[2019-04-18] MEDS: Artificial Tears SOLN 15 ML BOTTLE BOTH EYES SCH (04:24)
[2019-04-18 05:11] LABS: Platelet Estimate Normal (Normal)
[2019-04-18] MEDS ORDERED: Calcium Gluconate 2,000 MG in 0.9 % Sodium Chloride 100 ML IVPB ONE ×2 (06:55→10:52)
[2019-04-18] MEDS ORDERED: *HR* OxyCODONE/APAP 5/325 TABLET PO PRN (07:15)
[2019-04-18] MEDS ORDERED: *HR* FentaNYL (PF) 100 MCG/2 ML VIAL IVP ONE (07:17)
[2019-04-18] MEDS ORDERED: Calcium Gluconate 1gm/50mL 1 GM/50 ML BAG IVPB ONE ×2 (07:30→08:00)
[2019-04-18] MEDS: Budesonide/Formoterol 160/4.5 1 PUFF INH IH SCH ×2 (07:39→20:03)
--- NOTE | 2019-04-18 08:12 | Pulmonology Progress Note ---
<Nicho Vazquez - Last Filed: 04/18/19 09:46> Date of Encounter: 04/18/19 Time of Encounter: 08:04 Subjective Principal diagnosis: Aortic aneurysm Interval history: The patient is a 78-year-old male with past medical history of high blood pressure, duodenal ulcer, thyroid disease, gout, asthma, with a significant past medical history of abdominal aortic aneurysm with repair graft placed by Dr. 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 Currently on clopidogrel was recently linda ricardo on Eliquis due to atrial fibrillation. Patient developed severe back pain yesterday on April 16 and had a syncopal episode at home was brought to the ER and found to be hemodynamically unstable with blood pressures as low as 50/30 noted on the monitor. Emergent vascular surgery consult and consult to ICU/critical care were placed in the ED, the patient was given TXA, FFP, in the ED along with 3 units of trauma blood, 3 L of normal saline, a unit albumin. Patient began having worsening pain and was developing nausea and vomiting, in the setting of aneurysm versus concern for duodenal perforation the decision was made at that time for emergent intubation for airway protection. The patient and family verbalized their consent to this procedure and intubation was performed by resident physician in the ED. Initially 7.5 tube was attempted but could not be passed to significant airway edema. The tube was withdrawn and the resident was able to pass a 7.0 endotracheal tube under glide scope visualization. Patient tolerated the procedure well was noted to have a small right mainstem intubation, the tube was withdrawn and verified to be in the correct position. Patient was taken emergently to the OR by Dr. Howe where he removed 1 L of fluid from the patient's retroperitoneum. However the aneurysm graft and sac appear to be in good condition and did not require further in tervention. The patient was transferred to the care of ICU for further evaluation and management. Upon my initial evaluation the patient is awake, alert, oriented, engaged to conversation answering questions appropriately. He is sitting upright in the hospital bed, his vitals are within normal limits, his skin is pink, warm, dry, good peripheral pulses, there is a holosystolic murmur noted to cardiopulmonary auscultation otherwise unremarkable exam. His abdominal incision is clean, dry, well dressed, minimal amount of blood noted on the abdominal dressing the abdomen is nontender, nondistended. There is no peripheral edema appreciated. Patient will be transferred from the ICU today. We will sign off from a pulmonology/critical care standpoint-please reconsult for any needs or concerns. Assessment and plan: Elevated white blood cell count: -Began Cipro and Flagyl yesterday for antibiotic coverage. -White blood cell count is trending downward. Acute kidney injury: Creatinine continues to trend downward and is currently at 1.34. The patient has received a significant amount of fluids. Nephrology consulted and is following. Nephrology agrees acute kidney injury is likely prerenal due to significant hypotension in the setting of hemorrhagic shock. Continue to monitor closely. HYPOCALCEMIA: -Calcium level VII.9 on 04/18/2019. -Replaced with 2 g of calcium gluconate, continue to monitor. Gastric ulceration: -We stopped Protonix, hold EGD at this time. -We began Omeprazole. -Hemoglobin continues to trend downward and is currently at 8.7. -Continue to monitor closely with transfusion is necessary. -Every 12 hours BMP/H&H. Anticoagulation: EPCDs Objective PUL Vital signs: Last Vital Signs Temp 97.8 F 04/18/19 07:00 Pulse 97 04/18/19 06:00 Resp 17 04/18/19 07:40 BP 162/73 04/18/19 06:00 Pulse Ox 93 04/18/19 07:40 General appearance: no acute distress, alert Eyes: nonicteric ENT: oropharynx moist Neck: supple Effort: normal Auscultation: bilateral: clear Cardiovascular: regular rate and rhythm Gastrointestinal: normoactive bowel sounds, soft, non-tender, non-distended Integumentary: normal Extremities: no cyanosis, no edema Musculoskeletal: no deformities normal mental status, non-focal exam mood appropriate, affect normal Results - Laboratory Findings CBC and BMP: 04/18/19 03:30 04/18/19 03:30 ABG ABG pH 7.34 pH Units (7.32-7.45) 04/17/19 04:29 ABG pCO2 45 mmHg (35-45) 04/17/19 04:29 ABG pO2 77 mmHg (85-104) L 04/17/19 04:29 ABG O2 Saturation 94 % (95-98) L 04/17/19 04:29 PT/INR, D-dimer PT 14.2 Seconds (9.4-12.1) H 04/18/19 03:30 Abnormal lab findings: Abnormal lab results WBC 14.6 K/mcL (4.3-11.1) H 04/18/19 03:30 RBC 2.75 M/mcL (4.19-5.50) L 04/18/19 03:30 Hgb 8.7 g/dL (12.9-16.9) L 04/18/19 03:30 Hct 26.9 % (37.5-50.1) L 04/18/19 03:30 MCV 102.6 fL (83.0-100.0) H 04/16/19 11:35 RDW 16.5 % (11.5-14.5) H 04/18/19 03:30 Plt Count 101 K/mcL (140-400) L 04/18/19 03:30 Band Neutrophils % 6.0 % (0-4) H 04/16/19 11:35 Neutrophils # 10.1 K/mcL (1.6-8.9) H 04/18/19 03:30 Lymphocytes # 0.4 K/mcL (0.6-4.6) L 04/16/19 19:32 Monocytes # 3.0 K/mcL (0.0-1.3) H 04/18/19 03:30 Reactive Lymphocytes Present (Not Present) A 04/16/19 11:35 PT 14.2 Seconds (9.4-12.1) H 04/18/19 03:30 ABG pH 7.30 pH Units (7.32-7.45) L D 04/16/19 20:23 ABG pCO2 51 mmHg (35-45) H 04/16/19 20:23 ABG pO2 77 mmHg (85-104) L 04/17/19 04:29 ABG Total CO2 27 mEq/L (20-26) H 04/16/19 20:23 ABG O2 Saturation 94 % (95-98) L 04/17/19 04:29 ABG Base Excess -6 mEq/L (-2 to 3) L 04/16/19 16:56 VBG pCO2 36 mmHg (41-51) L 04/16/19 12:04 VBG pO2 129 mmHg (25-50) H 04/16/19 12:04 VBG HCO3 19 mEq/L (21-27) L 04/16/19 12:04 Chloride 109 mEq/L (98-107) H 04/18/19 03:30 Carbon Dioxide 21 mEq/L (23-29) L 04/17/19 04:26 BUN 32 mg/dL (8-23) H 04/18/19 03:30 Creatinine 1.34 mg/dL (0.70-1.30) H 04/18/19 03:30 Est GFR ( Amer) 39 (> 60) L 04/17/19 12:30 Est GFR (Non-Af Amer) 52 (> 60) L 04/18/19 03:30 Glucose 129 mg/dL (70-105) H 04/18/19 03:30 POC Glucose 146 mg/dL (70-99) H 04/17/19 23:40 Calculated Osmolality 303 (280-300) H 04/18/19 03:30 Lactic Acid 4.4 mmol/L (0.5-2.2) H* 04/16/19 12:01 Calcium 7.9 mg/dL (8.6-10.3) L 04/18/19 03:30 Venous Ioniz Calcium 1.03 mmol/L (1.15-1.35) L 04/16/19 20:11 Phosphorus 5.0 mg/dL (2.7-4.5) H 04/16/19 16:38 Alkaline Phosphatase 30 Units/L (34-104) L 04/17/19 04:26 Creatine Kinase 379 Units/L (30-223) H 04/17/19 16:19 Serum Total Protein 5.2 g/dL (6.4-8.9) L 04/17/19 04:26 Globulin 1.7 g/dL (2.4-3.5) L 04/17/19 04:26 Albumin/Globulin Ratio 2.3 (1.1-2.2) H 04/16/19 16:38 Ur Specific [place] > 1.030 (1.010-1.025) H 04/17/19 16:15 Urine Protein 30 mg/dL (Neg-Trace) H 04/17/19 16:15 Urine Blood Moderate (Negative) H 04/17/19 16:15 Urine Microscopic RBC 50-100 per hpf (0-3) H 04/17/19 16:15 Urine Microscopic WBC 5-15 per hpf (0-3) H 04/17/19 16:15 Ur Squamous Epith Cells Many per lpf (None-Few) H 04/17/19 16:15 Ur Culture Indicated? YES (NO) A 04/17/19 16:15 Crossmatch See Detail 04/16/19 12:01 MTS Gel Crossmatch See Detail 04/16/19 12:01 - Microbiology Findings Microbiology Findings: Microbiology, Last 48 Hours 04/17/19 16:15 Urine Culture - Preliminary Urine,Clean Catch Culture is incubating. 04/16/19 12:01 Blood Culture - Preliminary Peripheral Venipuncture Culture is incubating and being continuously monitored for growth. Final report to follow. 04/16/19 11:35 Blood Culture - Preliminary Peripheral Venipuncture Culture is incubating and being continuously monitored for growth. Final report to follow. - Clinical Findings Intake & Output: Intake & Output 04/17/19 04/18/19 04/18/19 23:59 07:59 15:59 Intake Total 610 / 3391.1 1568.1 / 1568.1 Output Total 500 / 1075 1050 / 1050 Balance 110 / 2316.1 518.1 / 518.1 Weight 112.6 kg - VTE Documentation of Mechanical Device: Graduated compression elastic hosiery Consult Discharge Plan - Plan Referrals: Kelvin Loya DO [Primary Care Provider] - <Eliseo Hartmann - Last Filed: 04/19/19 09:45> Date of Encounter: 04/18/19 Objective PUL Vital signs: Last Vital Signs Temp 98.5 F 04/18/19 11:58 Pulse 110 04/18/19 14:00 Resp 22 04/18/19 14:00 BP 179/94 04/18/19 14:00 Pulse Ox 94 04/18/19 14:00 Results - Laboratory Findings CBC and BMP: 04/19/19 03:09 04/19/19 03:09 ABG ABG pH 7.34 pH Units (7.32-7.45) 04/17/19 04:29 ABG pCO2 45 mmHg (35-45) 04/17/19 04:29 ABG pO2 77 mmHg (85-104) L 04/17/19 04:29 ABG O2 Saturation 94 % (95-98) L 04/17/19 04:29 PT/INR, D-dimer PT 14.2 Seconds (9.4-12.1) H 04/18/19 03:30 Abnormal lab findings: Abnormal lab results WBC 13.9 K/mcL (4.3-11.1) H 04/18/19 14:06 RBC 2.79 M/mcL (4.19-5.50) L 04/18/19 14:06 Hgb 8.8 g/dL (12.9-16.9) L 04/18/19 14:06 Hct 27.5 % (37.5-50.1) L 04/18/19 14:06 MCV 102.6 fL (83.0-100.0) H 04/16/19 11:35 RDW 15.9 % (11.5-14.5) H 04/18/19 14:06 Plt Count 100 K/mcL (140-400) L 04/18/19 14:06 Band Neutrophils % 6.0 % (0-4) H 04/16/19 11:35 Neutrophils # 10.1 K/mcL (1.6-8.9) H 04/18/19 03:30 Lymphocytes # 0.4 K/mcL (0.6-4.6) L 04/16/19 19:32 Monocytes # 3.0 K/mcL (0.0-1.3) H 04/18/19 03:30 Reactive Lymphocytes Present (Not Present) A 04/16/19 11:35 Immature Plt Fraction 8.4 % (1.1-6.1) H 04/18/19 14:06 PT 14.2 Seconds (9.4-12.1) H 04/18/19 03:30 ABG pH 7.30 pH Units (7.32-7.45) L D 04/16/19 20:23 ABG pCO2 51 mmHg (35-45) H 04/16/19 20:23 ABG pO2 77 mmHg (85-104) L 04/17/19 04:29 ABG Total CO2 27 mEq/L (20-26) H 04/16/19 20:23 ABG O2 Saturation 94 % (95-98) L 04/17/19 04:29 ABG Base Excess -6 mEq/L (-2 to 3) L 04/16/19 16:56 VBG pCO2 36 mmHg (41-51) L 04/16/19 12:04 VBG pO2 129 mmHg (25-50) H 04/16/19 12:04 VBG HCO3 19 mEq/L (21-27) L 04/16/19 12:04 Chloride 109 mEq/L (98-107) H 04/18/19 03:30 Carbon Dioxide 21 mEq/L (23-29) L 04/17/19 04:26 BUN 32 mg/dL (8-23) H 04/18/19 03:30 Creatinine 1.34 mg/dL (0.70-1.30) H 04/18/19 03:30 Est GFR ( Amer) 39 (> 60) L 04/17/19 12:30 Est GFR (Non-Af Amer) 52 (> 60) L 04/18/19 03:30 Glucose 124 mg/dL (70-105) H 04/18/19 14:06 POC Glucose 146 mg/dL (70-99) H 04/17/19 23:40 Calculated Osmolality 303 (280-300) H 04/18/19 03:30 Lactic Acid 4.4 mmol/L (0.5-2.2) H* 04/16/19 12:01 Calcium 7.9 mg/dL (8.6-10.3) L 04/18/19 03:30 Venous Ioniz Calcium 1.03 mmol/L (1.15-1.35) L 04/16/19 20:11 Phosphorus 5.0 mg/dL (2.7-4.5) H 04/16/19 16:38 Alkaline Phosphatase 30 Units/L (34-104) L 04/17/19 04:26 Creatine Kinase 379 Units/L (30-223) H 04/17/19 16:19 Serum Total Protein 5.2 g/dL (6.4-8.9) L 04/17/19 04:26 Globulin 1.7 g/dL (2.4-3.5) L 04/17/19 04:26 Albumin/Globulin Ratio 2.3 (1.1-2.2) H 04/16/19 16:38 Ur Specific [place] > 1.030 (1.010-1.025) H 04/17/19 16:15 Urine Protein 30 mg/dL (Neg-Trace) H 04/17/19 16:15 Urine Blood Moderate (Negative) H 04/17/19 16:15 Urine Microscopic RBC 50-100 per hpf (0-3) H 04/17/19 16:15 Urine Microscopic WBC 5-15 per hpf (0-3) H 04/17/19 16:15 Ur Squamous Epith Cells Many per lpf (None-Few) H 04/17/19 16:15 Ur Culture Indicated? YES (NO) A 04/17/19 16:15 Crossmatch See Detail 04/16/19 12:01 MTS Gel Crossmatch See Detail 04/16/19 12:01 - Microbiology Findings Microbiology Findings: Microbiology, Last 48 Hours 04/17/19 16:15 Urine Culture - Preliminary Urine,Clean Catch Culture is incubating. 04/16/19 12:01 Blood Culture - Preliminary Peripheral Venipuncture Culture is incubating and being continuously monitored for growth. Final report to follow. 04/16/19 11:35 Blood Culture - Preliminary Peripheral Venipuncture Culture is incubating and being continuously monitored for growth. Final report to follow. - Clinical Findings Intake & Output: Intake & Output 04/17/19 04/18/19 04/18/19 23:59 07:59 15:59 Intake Total 610 / 3391.1 1568.1 / 2463.1 895 / 2463.1 Output Total 500 / 1075 1050 / 1625 575 / 1625 Balance 110 / 2316.1 518.1 / 838.1 320 / 838.1 Weight 112.6 kg - Attending Attestation I examined this patient and my medical decision-making was reviewed with the Resident Physician. I agree with the documented findings, disposition and treatment plan as described except to the extent set forth below. Patient seen and examined. Labs, radiology, chart personally reviewed. Agree with resident's history and physical, assessment, plan with following comments: MANUAL WINDER: Patient follows commands, Pulmonary: Acceptable oxygenation and ventilation and incentive spirometry is extremely important for the patient and mobilization. Cardiovascular: stable . Patient is not on anticoagulation and this would be contraindication knowing the risk of thromboembolic and this patient in the future. GI: Nutrition per dietary and GI prophylaxis per routine. Patient is feeling bloated, however hopefully with mobilization this will get better. Heme: DVT prophylaxis per routine. Hemoglobin seems to be stable. Renal; urine out put and renal function reviewed Endorcine: blood glucose is monitored Lines: all lines checked and no evidence of infections Skin: skin care to prevent pressure ulcers per nursing routine care Dispo: transfer to Code: Full. Prognosis. Fair. Will sign off and please call for any questions.
[2019-04-18] MEDS: MetroNIDAZOLE 500 MG/100 ML 500 MG/100 ML BAG IVPB SCH ×2 (09:51→20:12)
--- NOTE | 2019-04-18 13:49 | Nephrology Progress Note ---
Date of Encounter: 04/18/19 Time of Encounter: 08:30 - Assessment and Plan (1) BRENDA (acute kidney injury) Current Visit: Yes Status: Acute BRENDA is trending better; no need for [employer]ER; continue to follow a renal supportive/Conservative strategy. Given that his renal function has so dramatically improved, I will politely sign off at this point. Thank you for having consulted the [facility]. These feel free to call or page me with any nephrology related questions. 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 He did not affirm feeling swollen, he said. I reviewed the sign out for my colleague Dr. Grajeda. Objective - Vital Signs Vital signs: Vital Signs Temp Pulse Resp BP Pulse Ox 04/18/19 12:00 114 16 167/75 92 04/18/19 11:58 98.5 F 04/18/19 09:59 104 16 178/87 92 04/18/19 08:00 108 24 167/84 94 04/18/19 07:40 17 93 04/18/19 07:00 97.8 F 99 04/18/19 06:00 97 20 162/73 95 04/18/19 05:00 93 20 148/87 92 04/18/19 04:00 99.1 F 99 20 156/74 92 04/18/19 03:46 105 04/18/19 03:00 89 22 110/50 92 04/18/19 02:00 97 20 107/40 92 04/18/19 01:00 93 18 121/61 93 04/18/19 00:09 100.5 F H 04/18/19 00:00 92 20 132/65 93 04/17/19 23:00 101 18 130/61 92 04/17/19 22:01 24 93 04/17/19 22:00 108 22 145/67 93 04/17/19 21:17 101.4 F H 04/17/19 21:00 115 25 132/70 93 04/17/19 20:00 114 22 137/63 91 04/17/19 19:00 107 26 124/71 91 04/17/19 18:00 111 25 118/71 91 04/17/19 17:26 99.7 F H 04/17/19 17:00 109 30 144/65 91 04/17/19 16:00 108 26 151/68 91 04/17/19 15:33 148/61 92 04/17/19 15:00 106 25 138/69 91 04/17/19 14:00 103 26 154/66 92 Intake and Output 04/17/19 04/18/19 04/18/19 23:59 07:59 15:59 Intake Total 610 / 3391.1 1568.1 / 2463.1 895 / 2463.1 Output Total 500 / 1075 1050 / 1625 575 / 1625 Balance 110 / 2316.1 518.1 / 838.1 320 / 838.1 Intake: IV Fluids 610 / 3391.1 1368.1 / 2263.1 895 / 2263.1 FentaNYL (PF) 1,000 MCG In 0.9 68.1 / 68.1 % Sodium Chloride 80 ML @ 50 MCG/HR 5 mls/hr IVC CONT [facility] Rx #:[id number] Protonix 40 MG In 0.9 % Sodium 100 / 200 100 / 100 Chloride (Mini-Bag +) 100 ML @ 20 mls/hr IVC .Q5H [facility] Rx#: [id number] Diprivan 1,000 mg In 100 ml @ 5 10 / 251.8 MCG/KG/MIN 3.304 mls/hr IVC . Q24H [facility] Rx#:[id number] Lactated Ringers 1,000 ML @ 75 1000 / 1675 675 / 1675 mls/hr IVC .Q15D13K [facility] Rx#: [id number] Calcium Gluconate 2,000 MG In 0 120 / 120 .9 % Sodium Chloride 100 ML @ 220 mls/hr IVPB ONCE ONE Rx#: [id number] Cipro Premix 400 MG/200 ML 400 200 / 200 200 / 200 mg In 200 ml @ 200 mls/hr IVPB Q12HR [facility] Rx#:[id number] Flagyl Premix 500 MG/100 ML 500 200 / 200 100 / 100 mg In 100 ml @ 100 mls/hr IVPB BID [facility] Rx#:[id number] Ancef 2,000 MG In 0.9 % Sodium 100 / 100 Chloride 100 ML @ 200 mls/hr IVPB Q8HR [facility] Rx#:[id number] Oral 200 / 200 Output: Urine 175 / 175 Catheter 500 / 925 1050 / 1450 400 / 1450 Other: Weight 112.6 kg Blood Glucose* 146 Patient Weight 04/18/19 23:59 Weight 112.6 kg - General Appearance General appearance: Present: well-developed, well-nourished, obese EENT: Present: ATNC, PERRL, mucous membranes moist Neck: Present: supple Respiratory: Present: clear Cardiology: Present: regular rate, regular rhythm, normal S1, normal S2 Gastrointestinal: Present: normoactive bowel sounds, no guarding Integumentary: Present: warm and dry Neurologic: Present: no focal deficit, no asterixis Psychiatric: Present: mood/affect appropriate, cooperative - Lab 04/18/19 14:06 04/18/19 14:06 Most recent lab results 04/18/19 03:30 Calcium 7.9 L - VTE Documentation of Mechanical Device: Graduated compression elastic hosiery Consult Discharge Plan - Plan Referrals: Kelvin Loya DO [Primary Care Provider] -
--- NOTE | 2019-04-18 14:22 | Internal Med Progress Note ---
Hospitalist Progress Note - Encounter Date of Encounter: 04/18/19 Time of Encounter: 07:10 - Subjective Interval History: Patient looks and feels much better. Other than some incisional pain, he feels well. No SOB, No CP. Patient is hungry and thirsty. Will start with liquid diet and advance as tolerated. H/H dropping slightly but no sign of bleeding. He has been up to chair serval times since yesterday. He has no sign of GI blood loss. Will transfer patient to step down unit today. I asked RN to leave CVC in place until tomorrow, then D/C tomorrow. I would like to trend H/H further before pulling CVC. We are resuming much of his home meds today. Patient advised per Dr. Fishman -- no further anticoagulation and/or Plavix lifetime due to life-threatening bleed. - Exam Vitals: Temp Pulse Resp BP Pulse Ox 98.5 F 110 22 179/94 94 04/18/19 11:58 04/18/19 14:00 04/18/19 14:00 04/18/19 14:00 04/18/19 14:00 Exam: General: NAD; pink, warm HEENT: dry mucosa, neck supple Chest: CTA B, No WRR, IRR/IRR Abdomen: incision dressed, clean, dry, no pain other than incision; + BS EXt: 1-2+ edema; no calf pain; full ROM Neuro: A&Ox3; no focal deficits. Skin: pink, warm, dry - Assessment and Plan (1) Hemorrhagic shock Current Visit: Yes Status: Resolved Assessment and Plan: 1. Resolved. 2. Trend H/H. 3. No sign of bleeding thus far. 4. Leave CVC in place until tomorrow to trend H/H for one more day. 5. Remove CVC tomorrow. 6. Transfer to step down unit. (2) Duodenal ulcer Current Visit: Yes Status: Chronic Assessment and Plan: 1. No sign of GI blood loss. 2. Monitor clinically and trend hemoglobin. 3. PPI. 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 Per Dr. Fishman. (4) Atrial fibrillation Current Visit: Yes Status: Chronic Assessment and Plan: 1. Resuming home meds and monitor on telemetry. 2. No anti-coagulation. (5) DVT prophylaxis Current Visit: Yes Status: Acute Assessment and Plan: 1. EPCD's. - Time Spent with Patient Total time spent is greater than 50% in coordination of care (as documented) at patient's floor/unit and/or counseling patient: 25 - 35 minutes Plan of Care Discussed with: other (patient and MDR team) Internal Medicine: Result - Labs CBC & Chem 7: 04/18/19 03:30 04/18/19 03:30 Labs: Short CBC 04/17/19 04/18/19 Range/Units 17:24 03:30 WBC 14.6 H (4.3-11.1) K/mcL Hgb 9.9 L 8.7 L (12.9-16.9) g/dL Hct 30.0 L 26.9 L (37.5-50.1) % Plt Count 101 L (140-400) K/mcL Neutrophils # 10.1 H (1.6-8.9) K/mcL BMP 04/18/19 03:30 Sodium 142 Potassium 4.2 Chloride 109 H Carbon Dioxide 24 BUN 32 H Creatinine 1.34 H Glucose 129 H Calcium 7.9 L Urine 04/17/19 Range/Units 16:15 Urine Color Yellow (Yellow) Urine Clarity Clear (Clear) Urine pH 5.5 (5.0-8.0) pH Units Ur Specific [place] > 1.030 H (1.010-1.025) Urine Protein 30 H (Neg-Trace) mg/dL Urine Glucose (UA) Normal (Normal) mg/dL - ABG Interpretation ABG results: ABG ABG pH 7.34 pH Units (7.32-7.45) 04/17/19 04:29 ABG pCO2 45 mmHg (35-45) 04/17/19 04:29 ABG pO2 77 mmHg (85-104) L 04/17/19 04:29 ABG O2 Saturation 94 % (95-98) L 04/17/19 04:29 PT/INR, D-dimer PT 14.2 Seconds (9.4-12.1) H 04/18/19 03:30 - Impressions Impressions Retroperitoneum Ultrasound 04/17/19 20:00 IMPRESSION: No evidence of obstructive uropathy. Incomplete voiding. D/ / Ervin Alvarez / Ervin Alvarez Interpreting Provider: Ervin Alvarez - VTE Documentation of Mechanical Device: Graduated compression elastic hosiery Consult Discharge Plan - Plan Referrals: Kelvin Loya DO [Primary Care Provider] - (3) Endoleak post (EVAR) endovascular aneurysm repair Qualifiers: Encounter type: subsequent encounter Qualified Code(s): T82.330D - Leakage of aortic (bifurcation) graft (replacement), subsequent encounter (4) Atrial fibrillation Qualifiers: Atrial fibrillation type: chronic Qualified Code(s): I48.2 - Chronic atrial fibrillation
--- NOTE | 2019-04-18 14:47 | Vascular/Endovas Progress Note ---
Date of Encounter: 04/18/19 Time of Encounter: 14:42 - Assessment and plan (1) Nontraumatic retroperitoneal hematoma Current Visit: Yes Status: Acute Patient is postoperative day #2 following exploratory laparotomy and evacuation of retroperitoneal hematoma. Patient has been hemodynamically stable. Of note the BUN/creatinine is improved this morning. The hemoglobin has decreased which is most likely business process representative of mobilization of third space fluids. The etiology for the retroperitoneal hematoma is the patient's use of Eliquis and Plavix. It is unrelated to the previously endovascularly treated abdominal aortic aneurysm or type II endovascular leak. Okay for patient to increase physical activities as tolerated. Patient may need physical therapy for this. Okay to advance diet as tolerated by patient. Patient may require diuretic therapy due to the amount of fluid received during his resuscitation and surgery. 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 No immediate plans for treatment of this issue at this time. This may be addressed in the future via endovascular means via coiling. The recurrent type II endoleak is not part of the patient's admitting or ongoing clinical process. Qualifiers: Encounter type: subsequent encounter Qualified Code(s): T82.330D - Leakage of aortic (bifurcation) graft (replacement), subsequent encounter (3) Atrial fibrillation Current Visit: No Status: Chronic Patient has history of atrial fibrillation. Due to the life-threatening retroperitoneal hematoma secondary to Elliquis and Plavix the patient may no longer use oral anticoagulants. Plavix will be on hold indefinitely. Qualifiers: Atrial fibrillation type: chronic Qualified Code(s): I48.2 - Chronic atrial fibrillation - Subjective Interval history: The patient is in ICU bed #1. He is postoperative day #2 following exploratory laparotomy and drainage of retroperitoneal hematoma. He was extubated yesterday morning. His Reid was removed earlier this morning. Overall he had an uneventful night. The patient was up in a chair early this morning and again later this morning. He was begun on clear liquid diet. He denies any back pain. The patient has had some nausea but no vomiting. Vital Signs, Last 4 Hours Temp Pulse Resp BP Pulse Ox 04/18/19 14:00 110 22 179/94 94 04/18/19 12:00 114 16 167/75 92 04/18/19 11:58 98.5 F - Physical Examination General: Present: Conversant HEENT: Present: Atraumatic Neck: Present: Other (Right triple-lumen catheter is in position.). Absent: Midline deformity, Tracheal deviation Cardiac: Present: Other (Patient is in sinus tachycardia) Lungs: Present: Normal Breath Sounds, No Wheeze, Rales, Rhonchi Neuro: Present: Alert and responsive, No focal deficits noted, Cranial nerves grossly intact Vascular: Present: Normal capillary refill, Color/Temperature (Feet are warm and pink), Surgical incisions (The surgical dressing was removed from the abdomen. The staple line is intact. This area will be redressed.) Abdomen: Present: Soft, Non-tender, Other (Active bowel sounds) Skin: Present: No rashes noted on visualized skin - VTE Documentation of Mechanical Device: Graduated compression elastic hosiery Results 04/18/19 03:30 04/18/19 03:30 Lab Results, Last 24 hours 04/17/19 04/18/19 04/18/19 17:24 03:30 03:30 WBC 14.6 H Hgb 9.9 L 8.7 L Hct 30.0 L 26.9 L Plt Count 101 L INR 1.3 APTT 28.0 Sodium Potassium Chloride Carbon Dioxide BUN Creatinine Glucose Calcium 04/18/19 03:30 WBC Hgb Hct Plt Count INR APTT Sodium 142 Potassium 4.2 Chloride 109 H Carbon Dioxide 24 BUN 32 H Creatinine 1.34 H Glucose 129 H Calcium 7.9 L Consult Discharge Plan - Plan Referrals: Kelvin Loya DO [Primary Care Provider] -
[2019-04-18 14:58] LABS: Hematocrit 27.5 % (37.5-50.1); Hemoglobin 8.8 g/dL (12.9-16.9); Immature Platelets 8.4 % (1.1-6.1); Mean Corpuscular Hemoglobin 31.5 pg (28.0-33.3); Mean Corpuscular Volume 98.6 fL (83.0-100.0); Mean Platelet Volume 11.6 fL (9.4-12.4); Platelet Count 100 K/mcL (140-400); Red Blood Count 2.79 M/mcL (4.19-5.50); Red Cell Distribution Width 15.9 % (11.5-14.5); White Blood Count 13.9 K/mcL (4.3-11.1)
[2019-04-18 15:17] LABS: BUN/Creatinine Ratio 24 (6-26); Blood Urea Nitrogen 22 mg/dL (8-23); Calcium 8.8 mg/dL (8.6-10.3); Carbon Dioxide 27 mEq/L (23-29); Chloride 106 mEq/L (98-107); Glucose 124 mg/dL (70-105); Osmolality,Calculated 295 (280-300); Potassium 3.8 mEq/L (3.5-5.1); Sodium 140 mEq/L (136-145); eGFR For African Americans > 60 (> 60); eGFR For Non-African Americans > 60 (> 60)
[2019-04-18 17:05] LABS: Lymphocytes # 1.1 K/mcL (0.6-4.6); Neutrophils # 10.8 K/mcL (1.6-8.9); Platelet Estimate Slight Decrease (Normal); Toxic Granulation Present (Not Present)
[2019-04-18] MEDS: dilTIAZem HCl 60 MG TABLET PO SCH (17:45)
[2019-04-19 03:20] LABS: Basophils % 0.1 %; Eosinophils % 0.2 %; Hematocrit 25.2 % (37.5-50.1); Hemoglobin 8.2 g/dL (12.9-16.9); Immature Granulocytes % 1.4 % (0-4); Lymphocytes # 1.1 K/mcL (0.6-4.6); Lymphocytes % 9.2 %; Mean Corpuscular HGB Conc 32.5 g/dL (31.6-35.5); Mean Corpuscular Volume 98.4 fL (83.0-100.0); Mean Platelet Volume 10.8 fL (9.4-12.4); Monocytes # 1.9 K/mcL (0.0-1.3); Monocytes % 16.6 %; Neutrophils # 8.5 K/mcL (1.6-8.9); Platelet Count 101 K/mcL (140-400); Red Blood Count 2.56 M/mcL (4.19-5.50); Red Cell Distribution Width 15.4 % (11.5-14.5); Segmented Neutrophils % 72.5 %; White Blood Count 11.7 K/mcL (4.3-11.1)
[2019-04-19 03:39] LABS: BUN/Creatinine Ratio 21 (6-26); Blood Urea Nitrogen 15 mg/dL (8-23); Calcium 8.4 mg/dL (8.6-10.3); Carbon Dioxide 27 mEq/L (23-29); Chloride 103 mEq/L (98-107); Glucose 123 mg/dL (70-105); Osmolality,Calculated 290 (280-300); Potassium 3.6 mEq/L (3.5-5.1); Sodium 139 mEq/L (136-145); eGFR For African Americans > 60 (> 60); eGFR For Non-African Americans > 60 (> 60)
[2019-04-19] MEDS: Budesonide/Formoterol 160/4.5 1 PUFF INH IH SCH ×2 (07:46→20:04)
[2019-04-19] MEDS: MetroNIDAZOLE 500 MG/100 ML 500 MG/100 ML BAG IVPB SCH (08:13)
--- NOTE | 2019-04-19 10:47 | Internal Med Progress Note ---
<Paris Zambrano - Last Filed: 04/19/19 13:49> Hospitalist Progress Note - Encounter Date of Encounter: 04/19/19 Time of Encounter: 10:15 - Exam Vitals: Temp Pulse Resp BP Pulse Ox 98.1 F 74 18 164/85 91 04/19/19 11:27 04/19/19 11:27 04/19/19 11:27 04/19/19 11:27 04/19/19 11:27 - Time Spent with Patient Total time spent is greater than 50% in coordination of care (as documented) at patient's floor/unit and/or counseling patient: Internal Medicine: Result - Labs CBC & Chem 7: 04/19/19 03:09 04/19/19 03:09 Labs: Short CBC 04/18/19 04/19/19 Range/Units 14:06 03:09 WBC 13.9 H 11.7 H (4.3-11.1) K/mcL Hgb 8.8 L 8.2 L (12.9-16.9) g/dL Hct 27.5 L 25.2 L (37.5-50.1) % Plt Count 100 L 101 L (140-400) K/mcL Neutrophils # 10.8 H 8.5 (1.6-8.9) K/mcL BMP 04/18/19 04/19/19 14:06 03:09 Sodium 140 139 Potassium 3.8 3.6 Chloride 106 103 Carbon Dioxide 27 27 BUN 22 15 Creatinine 0.92 0.70 Glucose 124 H 123 H Calcium 8.8 8.4 L - ABG Interpretation ABG results: ABG ABG pH 7.34 pH Units (7.32-7.45) 04/17/19 04:29 ABG pCO2 45 mmHg (35-45) 04/17/19 04:29 ABG pO2 77 mmHg (85-104) L 04/17/19 04:29 ABG O2 Saturation 94 % (95-98) L 04/17/19 04:29 PT/INR, D-dimer PT 14.2 Seconds (9.4-12.1) H 04/18/19 03:30 - Impressions Impressions Chest X-Ray 04/16/19 14:30 IMPRESSION: Endotracheal tube tip is within the proximal right mainstem bronchus. Recommend retraction of at least 4-5 cm. Slightly increasing right basilar opacities likely atelectasis. The findings were sent to the Radiology Results Communication [facility] at 3:40 pm on 04/16/2019to be communicated to a licensed caregiver. D/ / 04/16/2019 15:41:34 Shaniqua Aguirre MD / [email or web address] Interpreting Provider: Shaniqua Aguirre MD Consult Discharge Plan - Plan Referrals: Kelvin Loya DO [Primary Care Provider] - - Attending Attestation I saw evaluated and examined this patient and reviewed objective data including labs and my medical decision-making was reviewed with the Resident Physician, Cristian Ackerman. I agree with the documented findings, disposition and treatment plan as described except to any changes set forth below. We independently had [id number] contact with the patient. Patient with retroperitoneal hemorrhage and hemorrhagic shock no transferred out of ICU. Status post multiple units of PRBC transfusion. Hemoglobin levels 8.2 today. Stable. Patient is feeling much better overall. Denies any dizziness or lightheadedness. He does have some abdominal pain related to surgery but well controlled. No shortness of breath. No palpitations. Continue to monitor hemoglobin levels. Check iron profile, B12 and folic acid levels. Vascular surgery following. No signs of fluid overloaded this time. Will consult physical therapy for evaluation as patient has been mostly bedridden since admission. As patient is no longer going to be on anticoagulation, he does have an increased risk of stroke due to his underlying atrial fibrillation. He will be a candidate for closure of atrial appendage with occlusive device. We will arrange for outpatient follow-up with cardiology for this. <Cristian Ackerman I - Last Filed: 04/19/19 18:41> Hospitalist Progress Note - Encounter Date of Encounter: 04/19/19 - Subjective Interval History: today patient is seen and examined . He is doing well , sitting in a chair . Tolerating food well . Had bowel movement and said it was little dark , . lower back pain mostly muscoloskeletal due to surgery .Patient is feeling much better overall. Denies any dizziness or lightheadedness. He does have some abdominal pain related to surgery but well controlled. No shortness of breath. No palpitations. - Exam Vitals: Temp Pulse Resp BP Pulse Ox 98.6 F 77 18 162/83 97 04/19/19 07:26 04/19/19 07:26 04/19/19 07:50 04/19/19 07:26 04/19/19 07:50 Exam: General: NAD; pink, warm HEENT: dry mucosa, neck supple Chest: CTA B, No WRR, IRR/IRR Abdomen: incision dressed, clean, dry, no pain other than incision; + BS EXt: 1-2+ edema; no calf pain; full ROM Neuro: A&Ox3; no focal deficits. Skin: pink, warm, dry - Assessment and Plan (1) Upper GI bleed Current Visit: No Status: Acute Assessment and Plan: No sign of GI blood loss. Monitor clinically and trend hemoglobin. , today hemoglubin 8.2 PPI. (2) Atrial fibrillation Current Visit: Yes Status: Chronic Assessment and Plan: Resuming home meds and monitor on telemetry. No anti-coagulation. (3) Hemorrhagic shock Current Visit: Yes Status: Resolved Assessment and Plan: Resolved. Trend H/H. No sign of bleeding thus far. CVC removed today (4) Anemia Current Visit: No Status: Acute Assessment and Plan: Hb currently 8.2 , it is stable repeat H/H tomorrow morning - Time Spent with Patient Total time spent is greater than 50% in coordination of care (as documented) at patient's floor/unit and/or counseling patient: Internal Medicine: Result - Labs CBC & Chem 7: 04/19/19 03:09 04/19/19 03:09 Labs: Short CBC 04/18/19 04/19/19 Range/Units 14:06 03:09 WBC 13.9 H 11.7 H (4.3-11.1) K/mcL Hgb 8.8 L 8.2 L (12.9-16.9) g/dL Hct 27.5 L 25.2 L (37.5-50.1) % Plt Count 100 L 101 L (140-400) K/mcL Neutrophils # 10.8 H 8.5 (1.6-8.9) K/mcL BMP 04/18/19 04/19/19 14:06 03:09 Sodium 140 139 Potassium 3.8 3.6 Chloride 106 103 Carbon Dioxide 27 27 BUN 22 15 Creatinine 0.92 0.70 Glucose 124 H 123 H Calcium 8.8 8.4 L - ABG Interpretation ABG results: ABG ABG pH 7.34 pH Units (7.32-7.45) 04/17/19 04:29 ABG pCO2 45 mmHg (35-45) 04/17/19 04:29 ABG pO2 77 mmHg (85-104) L 04/17/19 04:29 ABG O2 Saturation 94 % (95-98) L 04/17/19 04:29 PT/INR, D-dimer PT 14.2 Seconds (9.4-12.1) H 04/18/19 03:30 - Impressions Impressions Chest X-Ray 04/16/19 14:30 IMPRESSION: Endotracheal tube tip is within the proximal right mainstem bronchus. Recommend retraction of at least 4-5 cm. Slightly increasing right basilar opacities likely atelectasis. The findings were sent to the Radiology Results Communication Center at 3:40 pm on 04/16/2019to be communicated to a licensed caregiver. D/ / 04/16/2019 15:41:34 Shaniqua Aguirre MD / [email or web address] Interpreting Provider: Shaniqua Aguirre MD - VTE Documentation of Mechanical Device: Graduated compression elastic hosiery <Cristian Ackerman I - Last Filed: 04/19/19 18:41> (2) Atrial fibrillation Qualifiers: Atrial fibrillation type: chronic Qualified Code(s): I48.2 - Chronic atrial fibrillation (4) Anemia Qualifiers: Anemia type: unspecified type Qualified Code(s): D64.9 - Anemia, unspecified
[2019-04-19 14:09] LABS: Folate > 22.3 ng/mL (3.0-16.0); Vitamin B12 361 pg/mL (250-1100)
[2019-04-19 14:43] LABS: % Iron Saturation 10 % (20-55); Iron 21 mcg/dL (65-175); Transferrin 146 mg/dL (203-362)
[2019-04-19 15:01] LABS: Ferritin 977 ng/mL (20-250)
[2019-04-19] MEDS: dilTIAZem HCl 60 MG TABLET PO SCH (16:06)
--- NOTE | 2019-04-19 16:42 | Vascular/Endovas Progress Note ---
Date of Encounter: 04/19/19 Time of Encounter: 15:30 - Assessment and plan (1) Retroperitoneal hemorrhage Current Visit: Yes Status: Acute Patient is healing well after his retroperitoneal exploration for a retroperitoneal hemorrhage. His diet has been advanced and is tolerating solid food. His incision appears to be healing well. Patient is doing well from a vascular surgery standpoint. He will follow-up with Dr. Fishman after discharge as an outpatient. - Subjective Interval history: The patient is reporting that he is tolerating some solid foods. He is eating small meals. He has had a bowel movement today. He reports adequate pain control. He denies chest pain or shortness of breath. - Physical Examination General: Present: Conversant, No Apparent Distress HEENT: Present: Pupils equal Cardiac: Present: Reg Rate and Rhythm Lungs: Present: Normal Breath Sounds Neuro: Present: Alert and responsive Vascular: Present: Normal capillary refill, Surgical incisions (Incision clean, dry and intact, no erythema). Absent: Cyanosis, Edema Abdomen: Present: Soft, Non-tender Skin: Present: No rashes noted on visualized skin - VTE Documentation of Mechanical Device: Graduated compression elastic hosiery Results 04/19/19 03:09 04/19/19 03:09 Lab Results, Last 24 hours 04/19/19 04/19/19 03:09 03:09 WBC 11.7 H Hgb 8.2 L Hct 25.2 L Plt Count 101 L Sodium 139 Potassium 3.6 Chloride 103 Carbon Dioxide 27 BUN 15 Creatinine 0.70 Glucose 123 H Calcium 8.4 L Consult Discharge Plan - Plan Referrals: Kelvin Loya DO [Primary Care Provider] -
[2019-04-20 02:35] LABS: BUN/Creatinine Ratio 21 (6-26); Blood Urea Nitrogen 13 mg/dL (8-23); Calcium 8.1 mg/dL (8.6-10.3); Carbon Dioxide 25 mEq/L (23-29); Chloride 100 mEq/L (98-107); Glucose 121 mg/dL (70-105); Osmolality,Calculated 281 (280-300); Potassium 3.8 mEq/L (3.5-5.1); Sodium 135 mEq/L (136-145); eGFR For African Americans > 60 (> 60); eGFR For Non-African Americans > 60 (> 60)
[2019-04-20 05:51] LABS: Basophils % 0.1 %; Eosinophils # 0.1 K/mcL (0.0-0.6); Eosinophils % 0.7 %; Hematocrit 26.1 % (37.5-50.1); Hemoglobin 8.6 g/dL (12.9-16.9); Immature Granulocytes % 1.8 % (0-4); Lymphocytes # 0.9 K/mcL (0.6-4.6); Lymphocytes % 8.7 %; Mean Corpuscular Hemoglobin 31.9 pg (28.0-33.3); Mean Corpuscular Volume 96.7 fL (83.0-100.0); Mean Platelet Volume 11.4 fL (9.4-12.4); Monocytes % 19.5 %; Neutrophils # 7.1 K/mcL (1.6-8.9); Platelet Count 138 K/mcL (140-400); Red Cell Distribution Width 14.6 % (11.5-14.5); Segmented Neutrophils % 69.2 %; White Blood Count 10.3 K/mcL (4.3-11.1)
[2019-04-20 06:18] LABS: Platelet Estimate Decreased (Normal)
[2019-04-20] MEDS: Budesonide/Formoterol 160/4.5 1 PUFF INH IH SCH (08:01)
[2019-04-20] MEDS ORDERED: Ferumoxytol 510 MG in 0.9 % Sodium Chloride 100 ML IVPB ONE (10:24)
[2019-04-20] MEDS ORDERED: Iron Sucrose Complex 400 MG in 0.9 % Sodium Chloride 250 ML IVPB ONE (10:28)
[2019-04-20 10:59] VITALS: BP 150/80
--- NOTE | 2019-04-20 11:36 | Internal Med Progress Note ---
Hospitalist Progress Note - Encounter Date of Encounter: 04/20/19 - Exam Vitals: Temp Pulse Resp BP Pulse Ox 98.1 F 78 18 150/80 94 04/20/19 10:56 04/20/19 10:56 04/20/19 10:56 04/20/19 10:56 04/20/19 10:56 - Assessment and Plan (1) Upper GI bleed Current Visit: No Status: Acute (2) Atrial fibrillation Current Visit: Yes Status: Chronic (3) Hemorrhagic shock Current Visit: Yes Status: Resolved (4) Anemia Current Visit: No Status: Acute - Time Spent with Patient Total time spent is greater than 50% in coordination of care (as documented) at patient's floor/unit and/or counseling patient: Internal Medicine: Result - Labs CBC & Chem 7: 04/20/19 05:23 04/20/19 01:56 Labs: Short CBC 04/20/19 Range/Units 05:23 WBC 10.3 (4.3-11.1) K/mcL Hgb 8.6 L (12.9-16.9) g/dL Hct 26.1 L (37.5-50.1) % Plt Count 138 L (140-400) K/mcL Neutrophils # 7.1 (1.6-8.9) K/mcL BMP 04/19/19 04/20/19 03:09 01:56 Sodium 139 135 L Potassium 3.6 3.8 Chloride 103 100 Carbon Dioxide 27 25 BUN 15 13 Creatinine 0.70 0.63 L Glucose 123 H 121 H Calcium 8.4 L 8.1 L - ABG Interpretation ABG results: ABG ABG pH 7.34 pH Units (7.32-7.45) 04/17/19 04:29 ABG pCO2 45 mmHg (35-45) 04/17/19 04:29 ABG pO2 77 mmHg (85-104) L 04/17/19 04:29 ABG O2 Saturation 94 % (95-98) L 04/17/19 04:29 PT/INR, D-dimer PT 14.2 Seconds (9.4-12.1) H 04/18/19 03:30 - VTE Documentation of Mechanical Device: Graduated compression elastic hosiery Consult Discharge Plan - Plan Referrals: Kelvin Streeter MD [Partnered Physician] - (in 1 week for AFib; consider wa tchman device) Kelvin Loya DO [Primary Care Provider] - (in 1 week) (2) Atrial fibrillation Qualifiers: Atrial fibrillation type: chronic Qualified Code(s): I48.2 - Chronic atrial fibrillation (4) Anemia Qualifiers: Anemia type: unspecified type Qualified Code(s): D64.9 - Anemia, unspecified
--- NOTE | 2019-04-20 14:02 | Discharge Summary ---
<Paris Zambrano - Last Filed: 04/20/19 14:06> Orders not resulted at time of discharge: Pending orders 04/16/19 12:01 Culture,Blood [BC] Stat 04/17/19 09:53 Fecal Hemoccult [Occult Blood,Stool] [BF] Stat Date of Encounter: 04/20/19 Time of Encounter: 10:15 Hospital course: Mr. Hernandez is a 78 year old male - Time Spent with Patient Total time spent providing and/or coordinating discharge services: - Discharge Medications Prescriptions: Continued Garlic 1,000 mg PO QPM Levothyroxine [Synthroid] 75 mcg PO QAM Allopurinol [Zyloprim] 300 mg PO QPM dilTIAZem HCl [Diltiazem HCl] 120 mg PO QPM Loratadine [Allergy Relief] 10 mg PO DAILY Carvedilol 3.125 mg PO BID Edgar-3/Dha/Epa/Fish Oil [Cvs Fish Oil 1,000 mg Softgel] 1 cap PO QPM Cyanocobalamin (Vitamin B-12) [Vitamin B-12] 1,000 mcg PO DAILY Ferrous Sulfate [Iron] 325 mg PO 2100 Glucosamine HCl 1,500 mg PO BID Lisinopril [Zestril] 20 mg PO DAILY Omeprazole 20 mg PO DAILY Discontinued Clopidogrel [Plavix] 75 mg PO DAILY #30 tablet Apixaban [Eliquis] 5 mg PO BID Home Medications: Garlic 1,000 mg PO QPM 11/17/15 [History] Allopurinol [Zyloprim] 300 mg PO QPM 04/03/17 [History] Levothyroxine [Synthroid] 75 mcg PO QAM 04/03/17 [History] dilTIAZem HCl [Diltiazem HCl] 120 mg PO QPM 06/25/17 [History] Loratadine [Allergy Relief] 10 mg PO DAILY 10/27/18 [History] Carvedilol 3.125 mg PO BID 10/28/18 [History] Edgar-3/Dha/Epa/Fish Oil [Cvs Fish Oil 1,000 mg Softgel] 1 cap PO QPM 10/28/18 [History] Cyanocobalamin (Vitamin B-12) [Vitamin B-12] 1,000 mcg PO DAILY 04/17/19 [History] Ferrous Sulfate [Iron] 325 mg PO 2100 04/17/19 [History] Glucosamine HCl 1,500 mg PO BID 04/17/19 [History] Lisinopril [Zestril] 20 mg PO DAILY 04/17/19 [History] Omeprazole 20 mg PO DAILY 04/17/19 [History] Allergies/Adverse Reactions: Allergy/AdvReac Type Severity Reaction Status Date / Time No Known Allergies Allergy Verified 11/15/18 16:54 Date of admission: 04/16/19 14:27 Primary care physician: Kelvin Loya Consults: 04/16/19 12:39 Consult to Vascular Surgery [CONS] Stat Consulting Provider: Vascular Surgery Erin Reason for Consult: Hx of AAA repair on 2012 with endoleak repair in 2013, followed by Dr. Fishman Time Notified: 12:39 Call Completed: Yes 04/17/19 14:46 Consult to Nephrology [CONS] Routine Consulting Provider: Kidney Erin/SOCRATES/FILOMENA/RA Reason for Consult: BRENDA Call Completed: Yes 04/19/19 11:29 Consult to Occupational Therapy [CONS] Routine Comment: Evaluate, develop and implement POC Reason for Consult: Gen weakness Does patient have active BEDREST order?: No Is patient medically & hemodynamically stable?: Yes Consult to Physical Therapy [CONS] Routine Comment: Evaluate, develop and implement POC Reason for Consult: Gen weakness Does patient have active BEDREST order?: No Is patient medically & hemodynamically stable?: Yes - Constitutional Vitals: Temp Pulse Resp BP Pulse Ox 98.1 F 105 20 150/80 94 04/20/19 10:56 04/20/19 11:30 04/20/19 11:30 04/20/19 10:56 04/20/19 10:56 - Patient Status Disposition: Home, Self-Care Condition: Fair - Discharge Instructions Follow Up With: Kelvin Streeter MD [Partnered Physician] - (in 1 week for AFib; consider watchman device) Kelvin Loya DO [Primary Care Provider] - (in 1 week) - Attending Attestation I saw evaluated and examined this patient and reviewed objective data including labs and my medical decision-making was reviewed with the Resident Physician. I agree with the documented findings, disposition and discharge plan as described except to any changes set forth below. We independently had [id number] contact with the patient. Patient with history of atrial fibrillation on anticoagulation with Eliquis was hospitalized here with hemorrhagic shock resulting from a retroperitoneal hemorrhage resulting from possible endovascular leak from an abdominal aortic aneurysm. He was admitted to ICU and treated with IV fluids and blood transfusions. He also has a history of duodenal ulcer and was placed on PPI dr sanchez. Vascular surgery was consulted and patient underwent exploratory laparotomy with evacuation of retroperitoneal hematoma. He has been advised to stop taking Eliquis and Plavix. His hemoglobin levels have remained stable. He has not had any further signs of bleeding. He remains off anticoagulation. Given his underlying atrial fibrillation, he remains at risk for stroke. He may be a candidate for placement of watchman device into the atrial appendage to decrease this risk. He will be referred to cardiology for further evaluation for this procedure. Patient does have low iron levels and has received IV iron infusion today. He will be discharged home today. Time spent on discharge: 10 min <Cristian Ackerman I - Last Filed: 04/20/19 15:06> - NOTES TO OUTPATIENT PROVIDER Notes to Outpatient Provider: Mr. Hernandez is a 78 year old male with PMH of AAA who presented to ED with left lower back pain. Found to have a large retroperitoneal hematoma due to rupture DU which was evacuated. He has been advised to stop taking Eliquis and Plavix. His hemoglobin levels have remained stable. He has not had any further signs of bleeding. follow up with Cardiology for placement of watchman device . Orders not resulted at time of discharge: Pending orders 04/16/19 12:01 Culture,Blood [BC] Stat 04/17/19 09:53 Fecal Hemoccult [Occult Blood,Stool] [BF] Stat Date of Encounter: 04/20/19 - Discharge Diagnosis (1) Upper GI bleed Priority: Secondary Status: Acute (2) Atrial fibrillation Priority: Secondary Status: Chronic Qualifiers: Atrial fibrillation type: chronic Qualified Code(s): I48.2 - Chronic atrial fibrillation (3) Hemorrhagic shock Priority: Primary Status: Resolved (4) Anemia Priority: Secondary Status: Acute Qualifiers: Anemia type: unspecified type Qualified Code(s): D64.9 - Anemia, unspecified Hospital course: Mr. Hernandez is a 78 year old male with past medical history of high blood pressure, duodenal ulcer, A fib on eliquis ,abdominal aortic aneurysm with repair graft placed by Dr. 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 Currently on clopidogrel was recently placed on Eliquis due to atrial fibrillation. Presented to the hospital with sever back pain and he was found to be hemodynamically unstable with blood pressures as low as 50/30 noted on the monitor. Emergent vascular surgery consult and consult to ICU/critical care were placed in the ED, the patient was given TXA, FFP, in the ED along with 3 units of trauma blood, 3 L of normal saline, a unit albumin. Patient began having worsening pain and was developing nausea and vomiting, in the setting of aneurysm versus concern for duodenal perforation the decision was made at that time for emergent intubation for airway protection.Then Patient was taken emergently to the OR by Dr. Howe where he removed 1 L of fluid from the patient's retroperitoneum. However the aneurysm graft and sac appear to be in good condition and did not require further intervention. The patient was transferred to the care of ICU for further evaluation and management. Patient remain medically stable later he was extubated .His hemoglobin levels have remained stable. He has not had any f urther signs of bleeding. his vitals are within normal limits, his skin is pink, warm, dry, good peripheral pulses, there is a holosystolic murmur noted to cardiopulmonary auscultation otherwise unremarkable exam. His abdominal incision is clean, dry, well dressed, minimal amount of blood noted on the abdominal dressing. There is no peripheral edema appreciated. He remains off anticoagulation. Given his underlying atrial fibrillation, he remains at risk for stroke. He may be a candidate for placement of watchman device into the atrial appendage to decrease this risk. He will be referred to cardiology for further evaluation for this procedure. Patient does have low iron levels and has received IV iron infusion today. He will be discharged home today. We stopped his plavix and elequis . Patient is stable able to walk understand and agree with the treatment and plan . Discharge discussed with: patient, family, nurse - Time Spent with Patient Total time spent providing and/or coordinating discharge services: Date of admission: 04/16/19 14:27 Primary care physician: Kelvin Loya Consults: 04/16/19 12:39 Consult to Vascular Surgery [CONS] Stat Consulting Provider: Vascular Surgery Erin Reason for Consult: Hx of AAA repair on 2012 with endoleak repair in 2013, followed by Dr. Fishman Time Notified: 12:39 Call Completed: Yes 04/17/19 14:46 Consult to Nephrology [CONS] Routine Consulting Provider: Kidney Erin/SOCRATES/FILOMENA/RA Reason for Consult: BRENDA Call Completed: Yes 04/19/19 11:29 Consult to Occupational Therapy [CONS] Routine Comment: Evaluate, develop and implement POC Reason for Consult: Gen weakness Does patient have active BEDREST order?: No Is patient medically & hemodynamically stable?: Yes Consult to Physical Therapy [CONS] Routine Comment: Evaluate, develop and implement POC Reason for Consult: Gen weakness Does patient have active BEDREST order?: No Is patient medically & hemodynamically stable?: Yes - Constitutional Vitals: Temp Pulse Resp BP Pulse Ox 98.1 F 105 20 150/80 94 04/20/19 10:56 04/20/19 11:30 04/20/19 11:30 04/20/19 10:56 04/20/19 10:56 General appearance: Present: A&O X 3, no acute distress, answers questions appropriately Exam: . - Head Head exam: Present: atraumatic, normal inspection - Eye Eye exam: Present: EOMI, PERRL, sclera anicteric - Neck Neck exam general surgery: Present: full ROM, trachea midline - Respiratory Respiratory exam: Present: CTAB - Cardiovascular Cardiovascular exam: Present: RRR, +S1, +S2, systolic murmur - GI/Abdominal GI/Abdominal exam: Present: normal bowel sounds, soft, no peritoneal signs - Neurological Exam Neurological exam: Present: alert, oriented X3, no focal deficits - Psychiatric Psychiatric exam: Present: normal affect, normal mood - Skin Skin exam: Present: intact, normal color, warm - Patient Status Functional capacity at discharge: independent ambulation Overall status at discharge: patient is progressing back to baseline - Diet and Activity Activity: increase activity as tolerated Diet: low fat, low cholesterol, low salt diet - VTE Documentation of Mechanical Device: Graduated compression elastic hosiery
[2019-04-20] MEDS ORDERED: *HR* Midazolam HCl 5 MG/5 ML VIAL IVP ONE (17:16)
[2019-04-20] MEDS ORDERED: *HR* Etomidate 20 MG/10 ML AMPUL IVP ONE (17:16)
[2019-04-20] MEDS ORDERED: *HR* Rocuronium Bromide 100 MG/10 ML VIAL IVC ONE (17:16)
== END 2019-04-20 17:17 | disposition home or self-care (01) ==
LOC: EMEROOARM 11:30 → ICNU 14:27 → SUATTDRO 14:27 → ICNU 16:05 → 2NNU 04-18 17:22
PROVIDERS: ADMIT Pediatrics; ATTEND Internal Medicine

== ENCOUNTER 2019-12-20 07:53 | Inpatient (IN) ==
[2019-12-20 09:35] LABS: Basophils % 0.2 %; Eosinophils % 0.2 %; Hematocrit 43.9 % (37.5-50.1); Hemoglobin 14.3 g/dL (12.9-16.9); Immature Granulocytes % 2.5 % (0-4); Lymphocytes # 0.8 K/mcL (0.6-4.6); Lymphocytes % 9.3 %; Mean Corpuscular HGB Conc 32.6 g/dL (31.6-35.5); Mean Corpuscular Hemoglobin 33.5 pg (28.0-33.3); Mean Corpuscular Volume 102.8 fL (83.0-100.0); Mean Platelet Volume 10.7 fL (9.4-12.4); Monocytes # 1.2 K/mcL (0.0-1.3); Monocytes % 13.4 %; Neutrophils # 6.7 K/mcL (1.6-8.9); Platelet Count 162 K/mcL (140-400); Red Blood Count 4.27 M/mcL (4.19-5.50); Red Cell Distribution Width 12.2 % (11.5-14.5); Segmented Neutrophils % 74.4 %
[2019-12-20] MEDS ORDERED: Morphine Sulfate 2 MG/ML SYRINGE IVP ONE (09:55)
[2019-12-20 09:56] LABS: BUN/Creatinine Ratio 15 (6-26); Blood Urea Nitrogen 11 mg/dL (8-23); Carbon Dioxide 27 mEq/L (23-29); Chloride 102 mEq/L (98-107); Glucose 120 mg/dL (70-105); Osmolality,Calculated 287 (280-300); Potassium 3.8 mEq/L (3.5-5.1); Sodium 138 mEq/L (136-145); eGFR For African Americans > 60 (> 60); eGFR For Non-African Americans > 60 (> 60)
[2019-12-20] MEDS ORDERED: Ondansetron 4 MG/2 ML VIAL IVP PRN (10:13)
[2019-12-20] MEDS ORDERED: Naloxone 0.4 MG/ML INJ IVP PRN (10:13)
[2019-12-20] MEDS ORDERED: *HR* OxyCODONE Immed Rel 5 MG TABLET PO PRN (10:18)
[2019-12-20] MEDS ORDERED: *HR* HYDROmorphone (PF) 1 MG/ML SYRINGE IVP PRN (10:18)
[2019-12-20] MEDS: *HR* Heparin 5,000 UNIT/ML VIAL SQ SCH ×2 (14:40→20:19)
[2019-12-21] MEDS: *HR* Heparin 5,000 UNIT/ML VIAL SQ SCH (04:45)
[2019-12-21 05:19] LABS: Eosinophils % 0.1 %; Hemoglobin 12.9 g/dL (12.9-16.9); Mean Corpuscular Volume 101.3 fL (83.0-100.0); Red Cell Distribution Width 12.4 % (11.5-14.5)
[2019-12-21 05:20] LABS: Basophils % 0.1 %; Hematocrit 39.6 % (37.5-50.1); Immature Platelets 6.1 % (1.1-6.1); Lymphocytes # 0.8 K/mcL (0.6-4.6); Lymphocytes % 7.2 %; Mean Corpuscular HGB Conc 32.6 g/dL (31.6-35.5); Mean Platelet Volume 10.9 fL (9.4-12.4); Monocytes # 1.7 K/mcL (0.0-1.3); Neutrophils # 7.9 K/mcL (1.6-8.9); Platelet Count 139 K/mcL (140-400); Red Blood Count 3.91 M/mcL (4.19-5.50); Segmented Neutrophils % 75.6 %; White Blood Count 10.5 K/mcL (4.3-11.1)
[2019-12-21 05:32] LABS: BUN/Creatinine Ratio 22 (6-26); Blood Urea Nitrogen 16 mg/dL (8-23); Calcium 8.9 mg/dL (8.6-10.3); Carbon Dioxide 26 mEq/L (23-29); Chloride 100 mEq/L (98-107); Glucose 128 mg/dL (70-105); Osmolality,Calculated 283 (280-300); Potassium 3.9 mEq/L (3.5-5.1); Sodium 135 mEq/L (136-145); eGFR For African Americans > 60 (> 60); eGFR For Non-African Americans > 60 (> 60)
[2019-12-21] MEDS ORDERED: Ondansetron 4 MG/2 ML VIAL ONE (07:24)
[2019-12-21] MEDS ORDERED: Dexamethasone 4 MG/ML VIAL ONE (07:24)
[2019-12-21] MEDS ORDERED: *HR* FentaNYL (PF) 100 MCG/2 ML VIAL ONE (07:24)
[2019-12-21] MEDS ORDERED: *HR* Succinylcholine 200 MG/10 ML VIAL IVP ONE (07:24)
[2019-12-21] MEDS ORDERED: Lidocaine -MPF 2% 2 ML VIAL ONE (07:24)
[2019-12-21] MEDS ORDERED: *HR* Propofol 200 MG/20 ML VIAL IVP ONE (07:24)
[2019-12-21] MEDS ORDERED: carvediloL 6.25 MG TABLET PO SCH (08:00)
[2019-12-21] MEDS ORDERED: *HR* Magnesium Sulfate 1 GM/2 ML VIAL ONE (08:03)
[2019-12-21] MEDS ORDERED: Acetaminophen IV 1,000 MG/100 ML INFUS..BTL ONE (08:04)
[2019-12-21] MEDS ORDERED: Famotidine 20 MG/2 ML VIAL ONE (08:05)
[2019-12-21] MEDS ORDERED: *HR* HYDROMORPHONE 2 MG/ML VIAL ONE (08:34)
[2019-12-21] MEDS ORDERED: ceFAZolin 2,000 MG in Water for inj. (sterile) 20 ML IVP ONE (08:39)
[2019-12-21] MEDS ORDERED: *HR* HYDROmorphone (PF) 1 MG/ML SYRINGE IVP PRN ×3 (08:56→09:35)
[2019-12-21] MEDS ORDERED: *HR* OxyCODONE Immed Rel 5 MG TABLET PO PRN ×2 (08:56→09:35)
[2019-12-21] MEDS ORDERED: *HR* Promethazine 25 MG/ML VIAL IVP PRN ×2 (08:56→09:35)
[2019-12-21] MEDS ORDERED: *HR* HYDROmorphone 2 MG TABLET PO PRN ×2 (08:56→09:35)
[2019-12-21] MEDS ORDERED: *HR* Labetalol 20 MG/4 ML SYRINGE IVP PRN ×2 (08:56→09:35)
[2019-12-21] MEDS ORDERED: Loratadine 10 MG TABLET PO SCH (09:00)
[2019-12-21] MEDS ORDERED: Cyanocobalamin (B-12) 1,000 MCG TABLET PO SCH (09:00)
[2019-12-21] MEDS ORDERED: allopurinoL 300 MG TABLET PO SCH (09:00)
[2019-12-21] MEDS ORDERED: Aspirin Enteric Coated 81 MG Tablet PO SCH (09:00)
[2019-12-21] MEDS ORDERED: lisinopriL 20 MG TABLET PO SCH (09:00)
[2019-12-21] MEDS ORDERED: Ondansetron 4 MG/2 ML VIAL IVP PRN (09:35)
[2019-12-21] MEDS ORDERED: Naloxone 0.4 MG/ML INJ IVP PRN (09:35)
[2019-12-21 10:46] LABS: INR 1.1; Prothrombin Time 12.5 Seconds (9.4-12.1)
[2019-12-21] MEDS: *HR* OxyCODONE Immed Rel 5 MG TABLET PO PRN ×2 (12:16→20:56)
[2019-12-21] MEDS: ceFAZolin 2,000 MG in 0.9 % Sodium Chloride 100 ML IVPB SCH ×2 (16:05→23:39)
[2019-12-21] MEDS: carvediloL 6.25 MG TABLET PO SCH (16:47)
[2019-12-21] MEDS: DilTIAZem CD (24hr) 120 MG CAP.ER.24H PO SCH (16:48)
[2019-12-21] MEDS ORDERED: DHA PO SCH (18:00)
[2019-12-21] MEDS ORDERED: EPA PO SCH (18:00)
[2019-12-21] MEDS ORDERED: DilTIAZem CD (24hr) 120 MG CAP.ER.24H PO SCH (18:00)
[2019-12-21] MEDS ORDERED: OMEGA PO SCH (18:00)
[2019-12-21] MEDS ORDERED: FISH OIL PO SCH (18:00)
[2019-12-22 02:41] LABS: Hematocrit 31.7 % (37.5-50.1); Hemoglobin 10.3 g/dL (12.9-16.9); Mean Corpuscular HGB Conc 32.5 g/dL (31.6-35.5)
[2019-12-22 02:43] LABS: Immature Platelets 6.7 % (1.1-6.1); Mean Corpuscular Hemoglobin 33.9 pg (28.0-33.3); Mean Corpuscular Volume 104.3 fL (83.0-100.0); Red Blood Count 3.04 M/mcL (4.19-5.50); Red Cell Distribution Width 12.4 % (11.5-14.5); White Blood Count 11.9 K/mcL (4.3-11.1)
[2019-12-22 03:03] LABS: BUN/Creatinine Ratio 25 (6-26); Blood Urea Nitrogen 26 mg/dL (8-23); Calcium 8.1 mg/dL (8.6-10.3); Carbon Dioxide 26 mEq/L (23-29); Chloride 99 mEq/L (98-107); Glucose 120 mg/dL (70-105); Osmolality,Calculated 282 (280-300); Potassium 4.4 mEq/L (3.5-5.1); Sodium 133 mEq/L (136-145); eGFR For African Americans > 60 (> 60); eGFR For Non-African Americans > 60 (> 60)
[2019-12-22] MEDS: Aspirin Enteric Coated 325 MG Tablet PO SCH (07:31)
[2019-12-22] MEDS: Loratadine 10 MG TABLET PO SCH (07:32)
[2019-12-22] MEDS: Cyanocobalamin (B-12) 1,000 MCG TABLET PO SCH (07:32)
[2019-12-22] MEDS: *HR* OxyCODONE Immed Rel 5 MG TABLET PO PRN ×2 (07:32→13:57)
[2019-12-22] MEDS: carvediloL 6.25 MG TABLET PO SCH ×2 (07:33→17:55)
[2019-12-22] MEDS: allopurinoL 300 MG TABLET PO SCH (07:33)
[2019-12-22] MEDS ORDERED: lisinopriL 20 MG TABLET PO SCH (09:00)
[2019-12-22] MEDS: DilTIAZem CD (24hr) 120 MG CAP.ER.24H PO SCH (17:55)
[2019-12-23 01:41] LABS: Hematocrit 28.5 % (37.5-50.1); Hemoglobin 9.3 g/dL (12.9-16.9); Immature Platelets 8.6 % (1.1-6.1); Mean Corpuscular HGB Conc 32.6 g/dL (31.6-35.5); Mean Corpuscular Hemoglobin 33.6 pg (28.0-33.3); Mean Corpuscular Volume 102.9 fL (83.0-100.0); Mean Platelet Volume 11.6 fL (9.4-12.4); Red Blood Count 2.77 M/mcL (4.19-5.50); Red Cell Distribution Width 12.5 % (11.5-14.5); White Blood Count 11.9 K/mcL (4.3-11.1)
[2019-12-23 01:47] LABS: BUN/Creatinine Ratio 30 (6-26); Blood Urea Nitrogen 32 mg/dL (8-23); Calcium 8.1 mg/dL (8.6-10.3); Carbon Dioxide 26 mEq/L (23-29); Chloride 99 mEq/L (98-107); Glucose 125 mg/dL (70-105); Osmolality,Calculated 284 (280-300); Potassium 4.4 mEq/L (3.5-5.1); Sodium 133 mEq/L (136-145); eGFR For African Americans > 60 (> 60); eGFR For Non-African Americans > 60 (> 60)
[2019-12-23] MEDS: allopurinoL 300 MG TABLET PO SCH (07:58)
[2019-12-23] MEDS: Cyanocobalamin (B-12) 1,000 MCG TABLET PO SCH (07:58)
[2019-12-23] MEDS: Aspirin Enteric Coated 325 MG Tablet PO SCH (07:58)
[2019-12-23] MEDS: Loratadine 10 MG TABLET PO SCH (07:59)
[2019-12-23] MEDS: carvediloL 6.25 MG TABLET PO SCH (07:59)
[2019-12-23] MEDS ORDERED: *HR* OxyCODONE Immed Rel 5 MG TABLET PO PRN (08:04)
[2019-12-23] MEDS ORDERED: lisinopriL 20 MG TABLET PO SCH (09:00)
[2019-12-23 11:10] VITALS: BP 134/76
[2019-12-23] MEDS ORDERED: polyethylene glycoL 3350 17 GM POWD.PACK PO PRN (11:38)
== END 2019-12-23 13:42 | DRG 481 ==
LOC: 3NENU 07:53 → EMEROOARM 07:53 → 3NENU 12:42 → SUATTDRO 12:45
PROVIDERS: ADMIT Family Medicine; ATTEND Internal Medicine

== ENCOUNTER 2020-05-04 08:23 | Inpatient (IN) ==
[2020-05-04] MEDS ORDERED: Heparin 1,000 UNITS/500 mL 1,000 ML ONE (08:36)
[2020-05-04] MEDS ORDERED: ISOVUE-370 200 ML INFUS..BTL ONE (08:36)
[2020-05-04] MEDS ORDERED: 0.9 % Sodium Chloride 1,000 ML ONE ×3 (08:36→10:12)
[2020-05-04] MEDS ORDERED: *HR* Heparin 10,000 UNIT/10 ML VIAL ONE (08:36)
[2020-05-04] MEDS ORDERED: 0.9 % Sodium Chloride 1,000 ML IVC SCH (08:45)
[2020-05-04 09:09] LABS: Basophils % 0.3 %; Eosinophils % 0.3 %; Hematocrit 44.8 % (37.5-50.1); Hemoglobin 14.4 g/dL (12.9-16.9); Lymphocytes # 1.3 K/mcL (0.6-4.6); Lymphocytes % 20.2 %; Mean Corpuscular HGB Conc 32.1 g/dL (31.6-35.5); Mean Corpuscular Hemoglobin 31.6 pg (28.0-33.3); Mean Corpuscular Volume 98.2 fL (83.0-100.0); Mean Platelet Volume 11.3 fL (9.4-12.4); Monocytes % 15.7 %; Platelet Count 197 K/mcL (140-400); Red Blood Count 4.56 M/mcL (4.19-5.50); Red Cell Distribution Width 14.5 % (11.5-14.5); Segmented Neutrophils % 61.5 %; White Blood Count 6.5 K/mcL (4.3-11.1)
[2020-05-04] MEDS ORDERED: *HR* OxyCODONE Immed Rel 5 MG TABLET PO PRN (09:24)
[2020-05-04] MEDS ORDERED: Ondansetron 4 MG/2 ML VIAL IVP PRN (09:24)
[2020-05-04] MEDS ORDERED: *HR* Promethazine 25 MG/ML VIAL IVP PRN (09:24)
[2020-05-04] MEDS ORDERED: *HR* Metoprolol 5 MG/5 ML VIAL IVP PRN (09:24)
[2020-05-04] MEDS ORDERED: *HR* FentaNYL (PF) 100 MCG/2 ML VIAL IVP PRN (09:24)
[2020-05-04] MEDS ORDERED: Protamine Sulfate 50 MG/5 ML VIAL IVP ONE (11:42)
[2020-05-04] MEDS ORDERED: Perflutren Lipid Microsphere 1.3 ML in 0.9 % Sodium Chloride 8.7 ML IVP PRN (11:43)
[2020-05-04] MEDS ORDERED: *HR* Rocuronium Bromide 50 MG/5 ML VIAL IVP ONE (12:26)
[2020-05-04] MEDS ORDERED: *HR* Succinylcholine 200 MG/10 ML VIAL IVP ONE (12:26)
[2020-05-04] MEDS ORDERED: Lidocaine -MPF 2% 5 ML VIAL SQ ONE (12:26)
[2020-05-04] MEDS ORDERED: Lidocaine -MPF 4% 5 ML AMPUL TP ONE (12:26)
[2020-05-04] MEDS ORDERED: *HR* Propofol 200 MG/20 ML VIAL IVP ONE (12:26)
[2020-05-04] MEDS: carvediloL 6.25 MG TABLET PO SCH (17:08)
[2020-05-04] MEDS: Ascorbic Acid 500 MG TABLET PO SCH (17:09)
[2020-05-04] MEDS: Apixaban 5 MG TABLET PO SCH (20:07)
[2020-05-04] MEDS: GLUCOSAMINE HCL 1500 MG PO SCH (20:09)
[2020-05-05 01:35] LABS: Basophils % 0.1 %; Immature Granulocytes % 1.1 % (0-4); Lymphocytes # 0.7 K/mcL (0.6-4.6); Lymphocytes % 7.6 %; Mean Corpuscular Hemoglobin 31.9 pg (28.0-33.3); Mean Corpuscular Volume 99.8 fL (83.0-100.0); Mean Platelet Volume 11.2 fL (9.4-12.4); Monocytes # 0.5 K/mcL (0.0-1.3); Monocytes % 5.2 %; Neutrophils # 7.6 K/mcL (1.6-8.9); Platelet Count 179 K/mcL (140-400); Red Blood Count 4.01 M/mcL (4.19-5.50); Red Cell Distribution Width 14.2 % (11.5-14.5); White Blood Count 8.8 K/mcL (4.3-11.1)
[2020-05-05 01:37] LABS: Hemoglobin 12.8 g/dL (12.9-16.9)
[2020-05-05 01:47] LABS: INR 1.3
[2020-05-05 02:11] LABS: BUN/Creatinine Ratio 21 (6-26); Blood Urea Nitrogen 17 mg/dL (8-23); Calcium 8.8 mg/dL (8.6-10.3); Carbon Dioxide 24 mEq/L (23-29); Chloride 101 mEq/L (98-107); Glucose 146 mg/dL (70-105); Osmolality,Calculated 286 (280-300); Potassium 4.3 mEq/L (3.5-5.1); Sodium 136 mEq/L (136-145); eGFR For African Americans > 60 (> 60); eGFR For Non-African Americans > 60 (> 60)
[2020-05-05] MEDS: GLUCOSAMINE HCL 1500 MG PO SCH (07:13)
[2020-05-05 07:28] VITALS: BP 137/69
[2020-05-05] MEDS: carvediloL 6.25 MG TABLET PO SCH (07:36)
[2020-05-05] MEDS: Apixaban 5 MG TABLET PO SCH (07:36)
[2020-05-05] MEDS: Ascorbic Acid 500 MG TABLET PO SCH (07:36)
[2020-05-05] MEDS ORDERED: lisinopriL 20 MG TABLET PO SCH (09:00)
[2020-05-05] MEDS ORDERED: Aspirin Enteric Coated 81 MG Tablet PO SCH (09:00)
[2020-05-05] MEDS ORDERED: Loratadine 10 MG TABLET PO SCH (09:00)
[2020-05-05] MEDS ORDERED: allopurinoL 300 MG TABLET PO SCH (09:00)
[2020-05-05] MEDS ORDERED: FLU Vac QV 20-21 (6Month+)/PF 0.5 ML SYRINGE IM ONE (09:01)
== END 2020-05-05 12:27 | disposition home or self-care (01) | DRG 274 ==
LOC: 2NNU 08:23
PROVIDERS: ADMIT Internal Medicine Cardiovascular Disease; ATTEND Internal Medicine Cardiovascular Disease